=== PATIENT | male | born 1960 | race Caucasian/White ===

== ENCOUNTER → 2020-08-13 02:50 | Outpatient (CLI) | payer MEDICARE, BC, SELFPAY ==
[2020-08-13 19:43] LABS: SARS-CoV-2 RNA PCR Negative
== END ==
PROVIDERS: PCP Family Medicine; Visit Provider Internal Medicine Gastroenterology
DX: Z01.812 Encounter for preprocedural laboratory examination (principal); Z20.822 Contact with and (suspected) exposure to COVID-19
CPT/HCPCS: C9803; U0003; U0005

== ENCOUNTER 2020-08-16 00:22 | Day surgery (SDC) | payer MEDICARE, BC, SELFPAY ==
[2020-08-04 13:44] VITALS: BMI 21.2
[2020-08-16 08:18] VITALS: BP 146/68; PULSE 78; RESP 17; TEMP 36.4; O2SAT 97; BMI 35.9
[2020-08-16 08:24] LABS: Glucose Point of Care 173 (65-105)
[2020-08-16] MEDS: LACTATED RINGERS 1,000 ML 150 ML IV CONT (08:32)
--- NOTE | 2020-08-16 08:46 | PM.HPGS ---
History of Present Illness History of Present Illness Consent: Risks, benefits, and alternatives have been discussed and questions answered. Patient agrees to proceed with procedure. Chief complaint: neoplasm screening, GERD Narrative: Valentín Hurtado is a 60 year old male here for screening colonoscopy. he had a polyp removed about 9 years ago. He has been treated for many years for acid reflux but had never had an EGD to rule out Alba's mucosa. Review of Systems Review of Systems: All systems reviewed & are unremarkable except as noted in HPI and below PMFSH Past Medical History Medical History BMI 37.0-37.9, adult Essential hypertension Gastroesophageal reflux disease without esophagitis Mixed hyperlipidemia LEONCIO (obstructive sleep apnea) Other pulmonary embolism without acute cor pulmonale Parkinsons disease Type 2 diabetes mellitus without complications Unspecified asthma, uncomplicated Family History Family History Father Hypertension Family history of lung cancer, Onset Age: 57 Grandparent Hypertension Cerebrovascular accident Sibling Family history of lung cancer Mother Family history of chronic obstructive pulmonary disease Other Diabetes mellitus Family history of malignant neoplasm Family history of tuberculosis Social History Social History Smoking packs per day: 0.5 Smoking cigarettes per day: 10.0 Smoking status: Former smoker Tobacco type: cigarettes Smoking end date: 04/29/02 Alcohol intake: current Drinks per week: 2 Alcohol use details: 2 GLASSES OF WINE PER WEEK Substance use: never Substance use type: does not use Living arrangements: with family Spiritual care concerns: No Meds Home Medications and Allergies Home Medications Medication Instructions Recorded Confirmed Type carbidopa 25 mg-levodopa 100 mg 5 tablet PO DIRECTED tablet 10/05/19 08/16/20 History tablet clonazepam 0.5 mg tablet 0.5 mg PO .QHS tablet 10/05/19 08/16/20 History escitalopram oxalate 10 mg tablet 10 mg PO DAILY 02/18/20 08/16/20 History mirtazapine 45 mg tablet 45 mg PO HS 02/18/20 08/16/20 History trazodone 100 mg tablet 100 mg PO DAILY 02/18/20 08/16/20 History metformin 500 mg tablet,extended 2,000 mg PO QPM #360 tablet 06/10/20 08/16/20 Rx release 24 hr blood sugar diagnostic #200 ea 06/16/20 08/16/20 Rx lancets 33 gauge #100 each 06/16/20 08/16/20 Rx blood-glucose meter #1 ea 06/17/20 08/16/20 Rx amlodipine 5 mg tablet 10 mg PO DAILY tablet 07/22/20 08/16/20 History montelukast [Singulair] 10 mg PO DAILY 08/04/20 08/16/20 History ramipril 10 mg PO BID 08/04/20 08/16/20 History rosuvastatin 20 mg PO DAILY 08/04/20 08/16/20 History terbinafine HCl 250 mg PO DIRECTED 08/04/20 08/16/20 History lansoprazole 30 mg capsule,delayed 30 mg PO DAILY #90 cap 08/10/20 08/16/20 Rx release Allergies Allergy/AdvReac Type Severity Reaction Status Date / Time No Known Allergies Allergy Verified 08/04/20 13:32 Vital Signs Vital Signs - 24 hr 08/16/20 08:18 Temperature 36.4 C L Pulse Rate 78 Respiratory Rate 17 Blood Pressure 146/68 H Pulse Oximetry 97 Exam Const: General: alert Orientation/consciousness: patient oriented x3 Resp: Auscultation: clear to auscultation bilaterally Cardio: Rhythm: regular rhythm GI: GI Palp: Yes Soft to palpation and No Tenderness to palpation present (GI) Neuro: General: patient oriented x3 Assessment and Plan Assessment and plan (1) GERD (gastroesophageal reflux disease): Code(s): K21.9 - Gastro-esophageal reflux disease without esophagitis Status: Acute Assessment and Plan: EGD with possible biopsy or dilatation or cautery. (2) Personal history of colonic polyps: Code(s): Z86.010 - Personal history o
--- NOTE | 2020-08-16 08:54 | WPDANESEPPF ---
Anes - Initial Pre Proc Eval Procedure: Operation Date: 08/16/20 09:30 Proposed Procedures p Esophagogastroduodenoscopy & Screening Colonoscopy - Enmanuel Vasquez MD Date/Time: 08/16/20 08:54 Surgeon: Enmanuel Vasquez MD Pre Op Diagnosis: neoplasm screening, GERD Patient Data Age: 60 Gender: M Height: 5 ft 11 in Weight: 116.7 kg Last Vital Signs Temp 97.5 F L 08/16/20 08:18 Pulse 78 08/16/20 08:18 Resp 17 08/16/20 08:18 BP 146/68 H 08/16/20 08:18 Pulse Ox 97 08/16/20 08:18 Allergies Allergy/AdvReac Type Severity Reaction Status Date / Time No Known Allergies Allergy Verified 08/04/20 13:32 Home Medications Medication Instructions Recorded Confirmed Type carbidopa 25 mg-levodopa 100 mg 5 tablet PO DIRECTED tablet 10/05/19 08/16/20 History tablet clonazepam 0.5 mg tablet 0.5 mg PO .QHS tablet 10/05/19 08/16/20 History escitalopram oxalate 10 mg tablet 10 mg PO DAILY 02/18/20 08/16/20 History mirtazapine 45 mg tablet 45 mg PO HS 02/18/20 08/16/20 History trazodone 100 mg tablet 100 mg PO DAILY 02/18/20 08/16/20 History metformin 500 mg tablet,extended 2,000 mg PO QPM #360 tablet 06/10/20 08/16/20 Rx release 24 hr blood sugar diagnostic #200 ea 06/16/20 08/16/20 Rx lancets 33 gauge #100 each 06/16/20 08/16/20 Rx blood-glucose meter #1 ea 06/17/20 08/16/20 Rx amlodipine 5 mg tablet 10 mg PO DAILY tablet 07/22/20 08/16/20 History montelukast [Singulair] 10 mg PO DAILY 08/04/20 08/16/20 History ramipril 10 mg PO BID 08/04/20 08/16/20 History rosuvastatin 20 mg PO DAILY 08/04/20 08/16/20 History terbinafine HCl 250 mg PO DIRECTED 08/04/20 08/16/20 History lansoprazole 30 mg capsule,delayed 30 mg PO DAILY #90 cap 08/10/20 08/16/20 Rx release Laboratory Tests 08/16/20 08:22 POC Capillary Glucose 173 mg/dl H mg/dl (65-105) Patient hx anesthesia problems: none Family hx anesthesia problems: none PMFSH Past Medical History Medical History BMI 37.0-37.9, adult Essential hypertension Gastroesophageal reflux disease without esophagitis Mixed hyperlipidemia LEONCIO (obstructive sleep apnea) Other pulmonary embolism without acute cor pulmonale Parkinsons disease Type 2 diabetes mellitus without complications Unspecified asthma, uncomplicated Family History Family History Father Hypertension Family history of lung cancer, Onset Age: 57 Grandparent Hypertension Cerebrovascular accident Sibling Family history of lung cancer Mother Family history of chronic obstructive pulmonary disease Other Diabetes mellitus Family history of malignant neoplasm Family history of tuberculosis Social History Social History Smoking packs per day: 0.5 Smoking cigarettes per day: 10.0 Smoking status: Former smoker Tobacco type: cigarettes Smoking end date: 04/29/02 Alcohol intake: current Drinks per week: 2 Alcohol use details: 2 GLASSES OF WINE PER WEEK Substance use: never Substance use type: does not use Living arrangements: with family Spiritual care concerns: No Anes - Eval Final PreProcedure Day of Procedure 08/16/20 08:54 Patient weight: obese Heart: regular rate and rhythm Lungs: clear to auscultation Airway: Mallampati scale class II Neurological: alert and oriented Last oral intake: >/= 8 hours ASA classification: III Emergent: no Anesthetic plan: proceed Anesthesia type and monitoring: general GIVS and standard monitoring Informed Consent: The patient's anesthetic plan and its attendant risks and benefits were discussed with the patient/family/POA. Questions were solicited and answers provided to the satisfaction of the patient/family/POA.
[2020-08-16 10:16] VITALS: BP 108/67; PULSE 59; RESP 20; O2SAT 95
[2020-08-16 10:26] VITALS: BP 116/68; PULSE 55; RESP 18; O2SAT 94
[2020-08-16 10:36] VITALS: BP 124/77; PULSE 56; RESP 16; O2SAT 96
== END 2020-08-16 10:52 | disposition home or self-care (01) ==
PROVIDERS: PCP Family Medicine; Visit Provider Internal Medicine Gastroenterology
PROC: 0DJ08ZZ Inspection of Upper Intestinal Tract, Via Natural or Artificial Opening Endoscopic (ICD-10-PCS; CPT 43235; principal; 2020-08-16 09:30)
DX: Z12.11 Encounter for screening for malignant neoplasm of colon (principal); K57.30 Diverticulosis of large intestine without perforation or abscess without bleeding; D12.0 Benign neoplasm of cecum; K22.70 Barrett's esophagus without dysplasia; K31.7 Polyp of stomach and duodenum; K21.00 Gastro-esophageal reflux disease with esophagitis, without bleeding; K22.8 Other specified diseases of esophagus; I10 Essential (primary) hypertension; E78.2 Mixed hyperlipidemia; G47.33 Obstructive sleep apnea (adult) (pediatric); G20 Parkinson's disease; E11.9 Type 2 diabetes mellitus without complications; J45.909 Unspecified asthma, uncomplicated; Z86.711 Personal history of pulmonary embolism; Z87.891 Personal history of nicotine dependence; E66.9 Obesity, unspecified; Z68.35 Body mass index [BMI] 35.0-35.9, adult; Z79.84 Long term (current) use of oral hypoglycemic drugs
CPT/HCPCS: 45385; 45381; 45380; 43239; 82948; 88305; J2704; J7120

== ENCOUNTER → 2021-04-15 00:23 | Outpatient (CLI) | payer MEDICARE, BC, SELFPAY ==
[2021-04-17 20:09] LABS: SARS-CoV-2 RNA PCR Negative
== END ==
PROVIDERS: PCP Family Medicine; Visit Provider Nurse Practitioner Family
DX: R09.89 Other specified symptoms and signs involving the circulatory and respiratory systems (principal); Z20.822 Contact with and (suspected) exposure to COVID-19
CPT/HCPCS: C9803; U0003; U0005

== ENCOUNTER → 2021-07-06 14:11 | Outpatient (CLI) | payer MEDICARE, BC, SELFPAY ==
--- NOTE | ~2021-07-06 | MR_ITS ---
EXAMINATION: MR ankle LT wo con DATE: 07/06/2021 15:15 INDICATION: Left Achilles tendon injury TECHNIQUE: Magnetic resonance imaging (MRI) of the left ankle was performed without intravenous contr ast. Sequences included sagittal, coronal, and axial proton-density weighted fast spin echo without a nd with fat saturation. COMPARISON: None. FINDINGS: Medial ankle ligaments: The superficial deltoid ligament is normal. There is thickening of the normally more thin and well-de fined striated fibers of the deep deltoid ligament consistent with scarring related to chronic sprain . There is also scarring with thickening of the superomedial component of the spring ligament complex . The medial plantar oblique and infra plantar lateral components of the spring ligament complex are normal. Lateral ankle ligaments: The anterior and posterior inferior tibiofibular ligaments are normal. The anterior talofibular, calc aneofibular and posterior talofibular ligaments are normal. Tendons: Fusiform thickening and mild increased signal of the Achilles tendon consistent with moderate tendino sis without discrete tear. The peroneus longus and brevis tendons are normal. The tibialis anterior a nd extensor hallucis longus and extensor digitorum longus tendons are normal. The tibialis posterior, flexor digitorum longus and flexor hallucis longus tendons are normal. Plantar fascia: Moderate-sized plantar calcaneal spur at the insertion of the normal plantar aponeurosis. Bones/other: Bone alignment is normal. No fracture or pathologic marrow replacing process. Mild polyarticular oste oarthritis at the calcaneocuboid, naviculocuneiform and multiple tarsal metatarsal joints. Fluid: Physiologic amount of fluid in the joint space. There is a 2.2 x 1.2 x 1.2 cm ganglion cyst arising f rom the dorsolateral aspect of the talonavicular joint. There is mild subcutaneous edema about the di stal lower leg and ankle as well as at the Kager fat pad. IMPRESSION: 1. Moderate distal Achilles tendinosis without discrete tear. 2. Mild scarring consistent with chronic sprains of the deep deltoid and superomedial component of th e spring ligament complex. 3. 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 Reviewed, dictated and finalized at location A. 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 Moderate distal Achilles tendinosis without discrete tear. 2. Mild scarring consistent with chronic sprains of the deep deltoid and supero medial component of the spring ligament complex. 3. 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
== END ==
PROVIDERS: PCP Family Medicine
DX: S86.002A Unspecified injury of left Achilles tendon, initial encounter (principal); X58.XXXA Exposure to other specified factors, initial encounter; M19.072 Primary osteoarthritis, left ankle and foot
CPT/HCPCS: 73721

== ENCOUNTER 2021-08-11 12:45 | Emergency (ER) | payer MEDICARE, BC, SELFPAY ==
--- NOTE | ~2021-08-11 | XR_ITS ---
EXAMINATION: XR chest 2V DATE: 08/11/2021 13:34 INDICATION: Shortness of breath. Palpitations. TECHNIQUE: Frontal and lateral views of the chest were obtained. COMPARISON: Chest 2 views 10/25/2016, CT abdomen and pelvis 02/20/2018 FINDINGS: There is mild atelectasis in left lower lung zone. No pleural effusion or pneumothorax. The heart size is normal. IMPRESSION: 1. Mild atelectasis in left lower lung zone. Reviewed, dictated and finalized at location A.
--- NOTE | 2021-08-11 12:52 | ECG_ITS ---
Measurements Intervals Jarratt Rate: 75 P: 11 DC: 168 QRS: -14 QRSD: 107 T: 6 QT: 407 QTc: 456 Interpretive Statements SINUS RHYTHM WITH PREMATURE ATRIAL CONTRACTIONS NONSPECIFIC ST AND T-WAVE ABNORMALITY ABNORMAL ECG NO PREVIOUS ECG AVAILABLE FOR COMPARISON Electronically Signed On 08-11-2021 15:57:02 CDT by Dread Gomez M.D.
--- NOTE | 2021-08-11 13:07 | ED.CHESTPAIN ---
HPI - Chest Pain General Chief Complaint: Shortness of Breath/Dyspnea Stated Complaint: sob/palpatations Time Seen by Provider: 08/11/21 12:48 Source: patient and RN notes reviewed Mode of arrival: ambulatory Limitations: no limitations History of Present Illness HPI narrative: This is a 61 year old male with history of hypertension, hyperlipidemia, PE who presents for evaluation of shortness of breath. Patient states he has not felt well since yesterday. He has been having shortness of breath with exertion since yesterday. He is also reporting intermittent heart palpitations and midsternal chest pressure that is non radiating. His chest pressures has currently resolved and he states it is nonexertional. He denies fever, chills, cough, uRI symptoms. He does reports nausea and diarrhea since yesterday. He denies heart disease, but his states he had pulmonary emboli years ago. He is not currently on anticoagulation due to have only single occurrence. Related Data Home Medications Medication Instructions Recorded Confirmed carbidopa 25 mg-levodopa 100 mg 5 tablet PO DIRECTED tablet 10/05/19 05/31/21 tablet clonazepam 0.5 mg tablet 0.5 mg PO .QHS tablet 10/05/19 05/31/21 escitalopram oxalate 10 mg tablet 10 mg PO DAILY 02/18/20 05/31/21 mirtazapine 45 mg tablet 45 mg PO HS 02/18/20 05/31/21 trazodone 100 mg tablet 100 mg PO DAILY 02/18/20 05/31/21 furosemide 20 mg tablet 20 mg PO QAM 10/06/20 05/31/21 Allergies Allergy/AdvReac Type Severity Reaction Status Date / Time No Known Allergies Allergy Verified 05/10/21 12:37 Review of Systems Review of Systems: All systems reviewed & are unremarkable except as noted in HPI and below Constitutional: Constitutional: Denies body ache(s) and Denies chills ENT: Denies nasal congestion and Denies nasal discharge Cardiovascular: Cardiovascular: Reports chest pain, Denies diaphoresis, Reports irregular heart rhythm and Reports dyspnea Respiratory: Respiratory: Denies cough, Denies hemoptysis, Denies pain with cough and Reports dyspnea Gastrointestinal: Gastrointestinal: Denies abdominal pain, Denies hematochezia, Reports diarrhea and Reports nausea Genitourinary: Genitourinary: Denies hematuria and Denies dysuria Musculoskeletal: Musculoskeletal: Denies muscle cramps PMFSH Past Medical History Medical History BMI 34.0-34.9,adult Colonoscopy planned Essential hypertension Gastroesophageal reflux disease without esophagitis Mixed hyperlipidemia LEONCIO (obstructive sleep apnea) Other pulmonary embolism without acute cor pulmonale Parkinsons disease Type 2 diabetes mellitus without complications Unspecified asthma, uncomplicated Family History Family History Father Hypertension Family history of lung cancer, Onset Age: 57 Alcoholism Grandparent Hypertension Cerebrovascular accident Sibling Family history of lung cancer Mother Family history of chronic obstructive pulmonary disease Liver failure Sibling Alcoholism Other Diabetes mellitus Family history of malignant neoplasm Family history of tuberculosis Social History Social History Smoking packs per day: 0.5 Smoking cigarettes per day: 10.0 Tobacco type: cigarettes Second hand tobacco smoke exposure: Yes Smoking end date: 04/29/02 Alcohol intake: current Drinks per week: 2 Alcohol use details: 2 GLASSES OF WINE PER WEEK Substance use: never Substance use type: does not use 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 HEAD: Normocephalic, atraumatic NECK:
[2021-08-11 13:09] VITALS: BP 146/81; PULSE 68; RESP 20; TEMP 36.6; O2SAT 99
[2021-08-11 13:30] VITALS: O2SAT 98
[2021-08-11 13:40] LABS: Basophils Percent Auto 0.4 % (0.2-1.2); Eosinophils Absolute Auto 0.1 K/mm3 (0-0.3); Eosinophils Percent Auto 1.3 % (0-4.4); Hematocrit 43.3 % (42.0-52.0); Hemoglobin 14.4 g/dL (14.0-18.0); Immature Granulocyte Absolute 0.02 K/mm3 (0.00-0.031); Immature Granulocyte Percent A 0.4 % (0-0.5); Lymphocytes Percent Auto 21.1 % (18.3-44.2); Mean Corpuscular HGB Conc 33.3 g/dl (32-36); Mean Corpuscular Hemoglobin 29.6 pg (26-34); Mean Corpuscular Volume 89.1 fl (80-100); Monocytes Absolute Auto 0.4 K/mm3 (0.1-0.6); Monocytes Percent Auto 9.3 % (2.6-8.5); Neutrophils Absolute Auto 3.2 K/mm3 (1.3-6.7); Neutrophils Percent Auto 67.5 % (45.5-73.1); Platelet Count Result 147 k/mm3 (150-375); Red Blood Count 4.86 M/mm3 (4.6-6.20); Red Cell Distribution Width 13.1 % (11.5-14.5); White Blood Count 4.8 K/mm3 (4.5-10.0)
[2021-08-11 13:47] LABS: Add Urine Microscopic? YES; Appearance Urine Clear (Clear); Bilirubin Urine Negative (Negative); Blood Urine Negative (Negative); Color Urine Yellow (Yellow); Glucose Urine UA Negative (Negative); Ketones Urine Trace mg/dL (Negative); Leukocyte Esterase Ur Negative LEU/UL (Negative); Nitrate Urine Negative (Negative); Protein Urine Negative (Negative); Specific Grav Ur 1.015 (1.001-1.035); Urobilinogen Urine 0.2 mg/dL (<2.0)
[2021-08-11 13:51] LABS: Alanine Aminotransferase 10 U/L (4-50); Albumin Level 4.4 g/dL (3.5-5.1); Alkaline Phosphatase 128 U/L (38-126); Anion Gap 10 mmol/L (8-16); Aspartate Amino Transferase 24 U/L (17-59); Bilirubin,Total 0.7 mg/dL (0.2-1.3); Blood Urea Nitrogen 15 mg/dL (9-20); Calcium 8.9 mg/dL (8.4-10.2); Carbon Dioxide 26 mmol/L (22-30); Chloride 97 mmol/L (98-107); Estimated CRCL calculation 125 ml/min; Estimated Glomerular Filt Rate > 60; Glucose 182 mg/dL (65-110); Lipase 101 U/L (23-300); Magnesium 1.8 mg/dL (1.6-2.3); Potassium 4.4 mmol/L (3.4-5.0); Sodium 133 mmol/L (137-145)
[2021-08-11 13:52] LABS: Partial Thromboplastin Time 28.2 SECONDS (22.3-36.8); Prothrombin Time 13.2 Seconds (11.1-14.7)
[2021-08-11 13:55] LABS: D Dimer 0.47 ug/mL (<0.48)
[2021-08-11 13:58] LABS: Mucus Urine Rare /lpf; RBC Urine 0-2 /hpf (0-2); WBC Urine 0-3 /hpf
[2021-08-11 14:02] LABS: Troponin I < 0.012 ng/mL (0.000-0.034)
[2021-08-11 14:16] LABS: SARS-CoV-2 RNA PCR Negative
[2021-08-11 15:44] VITALS: BP 127/78; PULSE 66; RESP 18; O2SAT 95
[2021-08-11 16:47] LABS: Troponin I < 0.012 ng/mL (0.000-0.034)
[2021-08-11 16:58] VITALS: PULSE 70; RESP 15; O2SAT 99
== END 2021-08-11 17:09 | disposition home or self-care (01) ==
PROVIDERS: Emergency Provider General Practice; PCP Family Medicine
DX: R06.00 Dyspnea, unspecified (principal); R53.83 Other fatigue; I10 Essential (primary) hypertension; G20 Parkinson's disease; E11.9 Type 2 diabetes mellitus without complications; E78.2 Mixed hyperlipidemia; J45.909 Unspecified asthma, uncomplicated; K21.9 Gastro-esophageal reflux disease without esophagitis; G47.33 Obstructive sleep apnea (adult) (pediatric); Z86.711 Personal history of pulmonary embolism; Z87.891 Personal history of nicotine dependence; Z79.84 Long term (current) use of oral hypoglycemic drugs; R94.31 Abnormal electrocardiogram [ECG] [EKG]
CPT/HCPCS: 36415; 71046; 80053; 81001; 83690; 83735; 84484; 85025; 85380; 85610; 85730; 93005; 99284; C9803; U0003; U0005

== ENCOUNTER → 2021-09-22 12:02 | Outpatient (CLI) | payer MEDICARE, BC, SELFPAY ==
--- NOTE | ~2021-09-22 | XR_ITS ---
EXAMINATION: XR knee RT 2V DATE: 09/22/2021 12:23 INDICATION: Right knee pain TECHNIQUE: Standing AP and lateral views of the right knee were obtained. COMPARISON: None. FINDINGS: Bone alignment is normal. No fracture. Joint spaces appear normal with tiny marginal osteophytes in a ll 3 compartments consistent with minimal osteoarthritis. Mild chondrocalcinosis at the posterior praveena nt space likely at the posterior horns of the menisci. Small right knee joint effusion. IMPRESSION: 1. Chondrocalcinosis and minimal tricompartmental osteoarthritis at the right knee. Reviewed, dictated and finalized at location B. IMPRESSION: 1. Chondrocalcinosis and minimal tricompartmental osteoarthritis at the right k margarita.
== END ==
PROVIDERS: PCP Family Medicine; Visit Provider Nurse Practitioner Family
DX: M25.561 Pain in right knee (principal); M11.261 Other chondrocalcinosis, right knee; M17.11 Unilateral primary osteoarthritis, right knee
CPT/HCPCS: 73560

== ENCOUNTER → 2021-10-05 15:29 | Outpatient (CLI) | payer MEDICARE, BC, SELFPAY ==
--- NOTE | ~2021-10-05 | MR_ITS ---
EXAMINATION: MR knee RT wo con DATE: 10/05/2021 16:10 INDICATION: Right knee pain. TECHNIQUE: Magnetic resonance imaging (MRI) of the right knee was performed without intravenous contr ast. Sequences included axial PD-weighted FS FSE, coronal PD-weighted FSE and PD-weighted FS FSE, sag ittal PD-weighted FSE, and sagittal T2-weighted FS FSE. COMPARISON: Right knee radiographs 09/22/2021 FINDINGS: Medial compartment: Increased signal in medial meniscus does not definitely extend to an articular surface to indicate a tear. There is shallow partial-thickness cartilage loss of tibial condyle and femoral condyle. Osteop hytes are noted. Lateral compartment: There is a complex tear involving body and posterior horn of lateral meniscus. There is shallow parti al-thickness cartilage loss of tibial condyle. There is full-thickness cartilage loss of femoral cond yle involving the central articular surface in an area measuring 12 x 7 mm. Osteophytes are noted. Patellofemoral compartment: There is full-thickness cartilage loss of patellar medial facet and deep partial thickness cartilage loss of patellar median ridge and lateral facet with moderate subchondral edema-like marrow signal in tensity. There is deep partial thickness cartilage loss of trochlea. Osteophytes are noted. Ligaments and tendons: The anterior and posterior cruciate ligaments are normal. There are changes of prior sprains of media l collateral ligament and fibular collateral ligament characterized by thickening and increased signa l intensity approximately. There is mild patellar tendinopathy. Fluid: There is a small knee joint effusion. There is a large Viramontes's cyst. IMPRESSION: 1. Severe chondrosis of lateral and patellofemoral compartments and mild chondrosis of medial compart ment. 2. Tear of lateral meniscus. 3. Small knee joint effusion. 4. Large Viramontes's cyst. Reviewed, dictated and finalized at location A. IMPRESSION: 1. Severe chondrosis of lateral and patellofemoral compartments and mild chondr osis of medial compartment. 2. Tear of lateral meniscus. 3. Small knee joint effusion. 4. Large Viramontes's cyst.
== END ==
PROVIDERS: PCP Family Medicine; Visit Provider Nurse Practitioner Family
DX: M71.21 Synovial cyst of popliteal space [Baker], right knee (principal); S83.281A Other tear of lateral meniscus, current injury, right knee, initial encounter; X58.XXXA Exposure to other specified factors, initial encounter
CPT/HCPCS: 73721

== ENCOUNTER → 2021-10-11 14:59 | Outpatient (CLI) | payer MEDICARE, BC, SELFPAY ==
--- NOTE | ~2021-10-11 | XR_ITS ---
EXAM: XR lumbar spine 2-3V DATE: 10/11/2021 16:12 HISTORY: M54.50 - Low back pain, unspecified . COMPARISON: 07/19/2014. FINDINGS: Interbody fusion at L4-5 and L5-S1, in good position. 5 nonrib-bearing lumbar-type vertebr al bodies. Pedicles intact. Normal vertebral body alignment. Vertebral body heights preserved. Multil evel marginal osteophytosis. Mild multilevel facet sclerosis. No fracture or dislocation. IMPRESSION: L4-5 and L5-S1 interbody fusion. Mild multilevel degenerative disc disease and facet arth ropathy. Reviewed, dictated and finalized at location K. IMPRESSION: L4-5 and L5-S1 interbody fusion. Mild multilevel degenerative disc disease and facet arthropathy.
== END ==
PROVIDERS: PCP Family Medicine; Visit Provider Nurse Practitioner Family
DX: M54.50 Low back pain, unspecified (principal); Z98.890 Other specified postprocedural states; Z98.1 Arthrodesis status; M51.37 Other intervertebral disc degeneration, lumbosacral region
CPT/HCPCS: 72100

== ENCOUNTER 2024-02-08 09:53 | Emergency (ER) | payer MEDICARE, BC, SELFPAY ==
--- NOTE | ~2024-02-08 | XR_ITS ---
EXAMINATION: XR chest 1V portable DATE: 02/08/2024 11:18 INDICATION: Hypertension. My lungs are full of rocks. TECHNIQUE: A single frontal view of the chest was obtained. COMPARISON: Chest 2 views 08/11/2021, CT abdomen and pelvis 02/20/2018 FINDINGS: There are mild airspace opacities in the lower lung zones. No pleural effusion or pneumotho rax. The heart size is normal. IMPRESSION: 1. Mild airspace opacities in the lower lung zones, consistent with atelectasis versus pneumonia. Reviewed, dictated and finalized at location A.
[2024-02-08 10:11] VITALS: BP 151/76; PULSE 84; RESP 20; TEMP 36.5; O2SAT 98
[2024-02-08 10:55] LABS: Influenza A QL RT-PCR Positive (Negative); Influenza B QL RT-PCR Negative (Negative); RSV RNA, RT-PCR Negative (Negative); SARS-CoV-2 RNA PCR Negative (Negative)
[2024-02-08 11:58] VITALS: PULSE 71; RESP 16; O2SAT 97
[2024-02-08] MEDS: ALBUTEROL SULFATE NEB 2.5 MG/3 ML INH 15 MG INHALATION (11:58)
[2024-02-08] MEDS: IPRATROPIUM BR 0.02% INH SOLN 0.5 MG/2.5 ML VIAL 1 MG INHALATION (11:58)
--- NOTE | 2024-02-08 12:16 | ED.URI ---
HPI - URI/Sore Throat General Chief Complaint: Upper Respiratory Infection Stated Complaint: my lungs are full of rocks , sob Time Seen by Provider: 02/08/24 10:58 History of Present Illness HPI Narrative: 63M h/o asthma p/w 5 d of viral syndrome; just started steroids yesterday, using inhalers at home w/o much improvement. Related Data Home Medications Medication Instructions Recorded Confirmed carbidopa 25 mg-levodopa 100 mg 5 tablet PO DIRECTED 10/05/19 02/06/24 tablet (Sinemet) clonazepam 0.5 mg tablet 0.5 mg PO .QHS 10/05/19 02/06/24 escitalopram oxalate 10 mg tablet 10 mg PO DAILY 02/18/20 02/06/24 mirtazapine 45 mg tablet 45 mg PO HS 02/18/20 02/06/24 trazodone 100 mg tablet 100 mg PO DAILY 02/18/20 02/06/24 Allergies Allergy/AdvReac Type Severity Reaction Status Date / Time No Known Allergies Allergy Verified 02/06/24 09:10 Review of Systems Review of Systems: All systems reviewed & are unremarkable except as noted in HPI and below PMFSH Past Medical History Medical History Adult BMI 33.0-33.9 kg/sq m Anxiety Arthritis Arthritis of right knee Asthma BMI 32.0-32.9,adult BMI 34.0-34.9,adult BMI greater than 30 Colonoscopy planned Depression Diabetes type 2 Essential hypertension Gastroesophageal reflux disease without esophagitis HLD (hyperlipidemia) HTN (hypertension) Mixed hyperlipidemia LEONCIO (obstructive sleep apnea) Other pulmonary embolism without acute cor pulmonale Parkinsons disease Pulmonary embolism Right knee DJD Synovial cyst of right popliteal space Tear of lateral meniscus of right knee Type 2 diabetes mellitus without complications Unspecified asthma, uncomplicated Surgical History Surgical History H/O shoulder surgery Right RTC (between [id number] Adalberto Bhakta) Left RTC (between [id number] Adalberto Bhakta) History of back surgery 1989 spinal fusion S1/L5 and L4/L5 by Dr. Candido Guerrero. History of hernia surgery Umbilical hernia x3 [id number] Nguyen. Umbilical hernia [address] Kaveh Washington. History of knee surgery Left knee arthroscopy 1973 Dr. Reta Yancey Left knee arthroscopy x2 (between [id number]) by Dr. Adalberto Bhakta Right knee arthroscopy x2 (between [id number] Adalberto Bhakta Left knee partial replacement [address] Adalberto Bhakta Left TKA [address] Hema Winter Kidney stones [address] Norris. Family History Family History Father Hypertension Family history of lung cancer, Onset Age: 57 Alcoholism Grandparent Hypertension Cerebrovascular accident Sibling Family history of lung cancer Mother Family history of chronic obstructive pulmonary disease Liver failure Sibling Alcoholism Other Arthritis Diabetes mellitus Family history of malignant neoplasm Family history of tuberculosis Social History Social History Smoking packs per day: 0.5 Smoking cigarettes per day: 10.0 Smoking status: Former smoker Tobacco type: cigarettes Second hand tobacco smoke exposure: Yes Smoking end date: 04/29/00 Alcohol intake: current Drinks per week: 2 Alcohol use details: 2 GLASSES OF WINE PER WEEK Substance use: never Substance use type: does not use Living arrangements: with family Occupation/Education: retired 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 EYES: EOMI, conjunctiva normal ENT: Hearing grossly intact LUNGS: Wheezing all lung br[place]ford HEART: [Regular rate and rhythm] ABD: [Soft], [nontender to palpation] EXT: Normal range of motion SKIN: [No rashes or lesions.] NEURO: [Alert and oriented x 3. No gross focal sensory or strength deficits.] PSYCH: Normal affect Course Vital Signs Vital signs: Vital Signs Temperature 97.7 F 02/08/24 10:11 Pulse Rate 84 02/08/24 10:11 Respiratory Rate 20 02/08/24 10:11 Blood Pressure 151/76 H 02/08/24 10:11 Pulse Oximetry 98 02/08/24 10:11 Oxygen Delivery Room Air 02/08/24 10:11 Temperature 97.7 F 02/08/24 10:11 Pulse Rate 81 02/08/24 13:38 Respiratory Rate 20 02/08/24 13:38 Blood Pressure 119/82 02/08/24 13:38 Pulse Oximetry 98 02/08/24 13:38 Oxygen Delivery Room Air 02/08/24 11:58 Fraction of Inspired Oxygen 21 02/08/24 11:58 MDM - URI/Sore Throat MDM Narrative Medical decision making narrative: ED COURSE AND MEDICAL DECISION MAKIN-year-old male with acute dyspnea and wheezing likely due to acute asthma exacerbation based on history and exam, likely after viral infection. Patient is hemodynamically stable. Nebulizer treatments are started he is already on steroids. Patient monitored in the ED for a couple of hours and on reevaluation is feeling significantly better. No respiratory distress or accessory muscle use. Good air movement bilateral lungs. he is given strict return precautions, he did test positive for flu however out of window for Tamiflu, given his risk factors I will put him on antibiotics any I do feel he is stable for discharge at this time. Patient and at bedside agreeable to plan Lab Data Labs: Lab Results 02/08/24 Range/Units 10:12 Influenza A (RT-PCR) Positive A (Negative) Influenza B (RT-PCR) Negative (Negative) RSV (RT-PCR) Negative (Negative) SARS-CoV-2 RNA (RT-PCR) Negative (Negative) Discharge Plan Discharge Clinical Impression: Acute bronchitis Patient Disposition: Home, Self-Care Condition: Stable Instructions: Antibiotic Form, Influenza (ED), Acute Bronchitis (ED) Additional Instructions: please continue your inhalers and steroids at home, start the antibiotics, make sure you are keeping hydrated, come back to the emergency room if your symptoms worsen or do not improve. Prescriptions: New azithromycin 250 mg tablet 250 mg PO DAILY 4 Days Qty: 4 0RF Rx Instructions: start on day 2 of therapy No Action clonazepam 0.5 mg tablet 0.5 mg PO .QHS carbidopa-levodopa [Sinemet] 25-100 mg tablet 5 tablet PO DIRECTED Rx Instructions: 5 AT 5AM, 4 AT 9 AM, 4 AT 1 PM, 4 AT 5 PM, 5 AT 9 PM prednisone 10 mg tablet 30 mg PO DAILY 5 Days Qty: 15 0RF Rx Instructions: Take all 3 tablets first thing in the morning Airsupra 90-80 mcg/actuation HFA aerosol inhaler 2 inh inhalation 6XD PRN (Reason: shortness of breath) Qty: 5.9 5RF mirtazapine 45 mg tablet 45 mg PO HS escitalopram oxalate 10 mg tablet 10 mg PO DAILY trazodone 100 mg tablet 100 mg PO DAILY (DME) OneTouch Ultra Blue Test Strip Strip See Rx Instructions .ROUTE .MEDSUPPLY Qty: 200 3RF Rx Instructions: Needs to check glucose bid for diabetes (DME) lancets [BD Ultra Fine Lancets] 33 gauge misc See Rx Instructions .ROUTE .MEDSUPPLY Qty: 100 3RF Rx Instructions: check glucose bid for diabetes (DME) blood-glucose meter [OneTouch Verio Flex Start] Kit See Rx Instructions .ROUTE .MEDSUPPLY Qty: 1 0RF Rx Instructions: As directed amlodipine 5 mg tablet See Rx Instructions .ROUTE .COMPLEX Qty: 180 1RF Dose Instruction: TAKE 2 TABLETS (10 MG) DAILY Rx Instructions: TAKE 2 TABLETS (10 MG) DAILY albuterol sulfate 2.5 mg /3 mL (0.083 %) solution for nebulization 2.5 mg inhalation Q4-6H PRN (Reason: shortness of breath or wheezing) Qty: 180 3RF rosuvastatin 20 mg tablet See Rx Instructions .ROUTE .COMPLEX Qty: 90 3RF Dose Instruction: TAKE 1 TABLET DAILY Rx Instructions: TAKE 1 TABLET DAILY albuterol sulfate 90 mcg/actuation HFA aerosol inhaler 2 inh inhalation Q4-6H PRN (Reason: shortness of breath or wheezing) Qty: 25.5 3RF triamcinolone acetonide 0.1 % cream 1 applic topical BID Qty: 30 0RF diclofenac sodium 75 mg tablet,delayed release (DR/EC) See Rx Instructions .ROUTE .COMPLEX Qty: 180 1RF Dose Instruction: TAKE 1 TABLET BY MOUTH TWICE DAILY NEEDED FOR PAIN Rx Instructions: TAKE 1 TABLET BY MOUTH TWICE DAILY NEEDED FOR PAIN ramipril 10 mg capsule See Rx Instructions .ROUTE .COMPLEX Qty: 180 1RF Dose Instruction: TAKE 2 CAPSULES BY MOUTH EVERY DAY Rx Instructions: TAKE 2 CAPSULES BY MOUTH EVERY DAY lansoprazole 30 mg capsule,delayed release(DR/EC) See Rx Instructions .ROUTE .COMPLEX Qty: 90 3RF Dose Instruction: TAKE 1 CAPSULE DAILY Rx Instructions: TAKE 1 CAPSULE DAILY montelukast 10 mg tablet See Rx Instructions .ROUTE .COMPLEX Qty: 90 2RF Dose Instruction: TAKE 1 TABLET BY MOUTH EVERY DAY Rx Instructions: TAKE 1 TABLET BY MOUTH EVERY DAY metformin 500 mg tablet extended release 24 hr See Rx Instructions .ROUTE .COMPLEX Qty: 360 3RF Dose Instruction: TAKE 4 TABLETS (2000 MG) EVERY EVENING Rx Instructions: TAKE 4 TABLETS (2000 MG) EVERY EVENING Linzess 72 mcg capsule 72 mcg PO DAILY Qty: 90 0RF Ozempic 1 mg/dose (4 mg/3 mL) pen injector 1 mg subcut WEEKLY Qty: 3 0RF Rx Instructions: managed by endo Follow-up/Referrals: Babatunde Rees MD [Primary Care Provider] -
[2024-02-08 12:56] VITALS: BP 122/66; PULSE 81; RESP 20; O2SAT 100
[2024-02-08 13:14] VITALS: PULSE 94; RESP 24
[2024-02-08] MEDS: AZITHROMYCIN 250 MG TABLET 500 MG PO (13:35)
[2024-02-08 13:38] VITALS: BP 119/82; PULSE 81; RESP 20; O2SAT 98
== END 2024-02-08 13:39 | disposition home or self-care (01) ==
PROVIDERS: Emergency Medicine; Emergency Provider Emergency Medicine; PCP Family Medicine
DX: J20.9 Acute bronchitis, unspecified (principal); E11.9 Type 2 diabetes mellitus without complications; I10 Essential (primary) hypertension; E78.2 Mixed hyperlipidemia; Z87.891 Personal history of nicotine dependence; Z79.899 Other long term (current) drug therapy; Z79.891 Long term (current) use of opiate analgesic; Z20.822 Contact with and (suspected) exposure to COVID-19
CPT/HCPCS: 71045; 87637; 94640; 99283; A9270

== ENCOUNTER 2024-03-27 10:44 | Outpatient (CLI) | payer MEDICARE, BC, SELFPAY ==
--- NOTE | ~2024-03-27 | XR_ITS ---
XR chest 2V DATE: 03/27/2024 11:02 INDICATION: Cough TECHNIQUE: PA and lateral views COMPARISON: 02/08/2024 portable AP chest FINDINGS: Heart size is within normal limits. No hilar or mediastinal enlargement. No pulmonary infiltrate or consolidation, pleural effusion or pulmonary vascular congestion or pneumo thorax is detected. There is thoracolumbar dextroscoliosis and degenerative change IMPRESSION: No active cardiopulmonary disease Reviewed, dictated and finalized at location A. 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
== END 2024-03-27 10:45 | disposition home or self-care (01) ==
PROVIDERS: PCP Family Medicine; Visit Provider Physician Assistant
DX: R05.9 Cough, unspecified (principal); J45.909 Unspecified asthma, uncomplicated; J11.1 Influenza due to unidentified influenza virus with other respiratory manifestations
CPT/HCPCS: 71046

== ENCOUNTER 2024-08-06 11:56 | Outpatient (CLI) | payer MEDICARE, BC, SELFPAY ==
--- OUTSIDE RECORDS SUMMARY | 2024-08-06 12:34 | XMS_ITS | Referral Summary ---
Author Organization [facility] [address] [place] [address] Care Team Providers Care Bridge/Structure Inspection Team Leader Name Role Phone Babatunde Rees MD Primary Care Provider [phone] Encounters Date Type Department Care Team Description 07/15/2024 3:00 PM CDT Office Visit [facility] at [address] [address] Deloris Chairez, JESSICA Type 2 diabetes 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, with long-term current use of insulin (HCC) (Primary Dx); Type 2 diabetes mellitus with diabetic polyneuropathy, without long-term current use of insulin (HCC); Hyperlipidemia associated with type 2 diabetes mellitus (HCC); Essential hypertension; Class 1 obesity due to excess calories with serious comorbidity and body mass index (BMI) of 34.0 to 34.9 in adult; freestyle gurwinder continuous glucose monitoring device 07/08/2024 Orders Only [facility] Movement Disorders [address] [place] [id number] Osiel Ramos MD 07/08/2024 Telephone [facility] at [address] [place] [address] Deloris Chairez, JESSICA from Last 3 Months Allergies No known active allergies Medications ONETOUCH ULTRA BLUE TEST STRIP strip 8 Active ONETOUCH ULTRA2 kit 8 Active lansoprazole (PREVACID) 30 mg capsule TK 1 C PO at night for heartburn 0 8 Active ramipril (ALTACE) 10 mg capsule Take 1 capsule (10 mg total) by mouth 2 (two) times a day 180 capsule 1 9 Active metFORMIN XR (GLUCOPHAGE XR) 500 mg 24 hr tablet Take 4 tablets (2,000 mg total) by mouth nightly 0 Active montelukast (SINGULAIR) 10 mg tablet daily [address] (VOLTAREN) 75 mg EC tablet Take 1 tablet (75 mg total) by mouth 2 (two) times a day 3 Active magnesium citrate solution Take by mouth once a week Active carbidopa-levodo pa (SINEMET) 25-100 mg per tabletIndication s:Parkinson's disease (HCC) Take 4 tabs at 5am, 3 at 9am, 3 at 1pm, 3 at 5pm, 4 at 9pm. 1530 tablet 3 3 Active traZODone (DESYREL) 100 mg tabletIndication s:Parkinson's disease (HCC) TAKE 1 TABLET AT BEDTIME AND MAY TAKE 1 TABLET IN THE MIDDLE OF THE NIGHT IF INSOMNIA PERSISTS 180 tablet 3 4 Active semaglutide (OZEMPIC) 1 mg/dose (4 mg/3 mL) pen injector injectionIndicat ions:type 2 diabetes mellitus Inject 1 mg under the skin every 7 days E11.65 9 mL 4 4 Active furosemide (LASIX) 20 mg tablet Take 1 tablet daily as needed 30 tablet 4 Active escitalopram (LEXAPRO) 10 mg tabletIndication s:Parkinson's disease (HCC) Take 1 tablet (10 mg total) by mouth daily 90 tablet 3 4 025 Active insulin degludec (TRESIBA) 100 unit/mL (3 mL) pen for injectionIndicat ions:type 2 diabetes mellitus Inject 36 Units under the skin daily E11.65 30 mL 4 5 Active amLODIPine (NORVASC) 5 mg tablet TAKE 1 TABLET BY MOUTH DAILY. 90 tablet 1 5 Active clonazePAM (KlonoPIN) 0.5 mg tabletIndication s:for anxiety Take 1 tab by mouth nightly and can take an additional 1/2 tab during the day prn 135 tablet 1 5 Active mirtazapine (REMERON) 45 mg tablet TAKE 1 TABLE BY MOUTH NIGHTLY 90 tablet 3 5 Active entacapone (COMTAN) 200 mg tabletIndication s:Idiopathic Parkinsonism Take 1 tablet (200 mg total) by mouth 4 (four) times a day 5am,9 am 1pm 5pm 360 tablet 3 5 026 Active rosuvastatin (CRESTOR) 40 mg tablet Take 1 tablet (40 mg total) by mouth daily E11.65 90 tablet 3 5 Active triamcinolone (KENALOG) 0.1 % cream Apply topically 2 (two) times a day 4 025 Discontin ued(Thera py completed ) rosuvastatin (CRESTOR) 40 mg tablet Take 1 tablet (40 mg total) by mouth daily E11.65 90 tablet 3 4 025 Discontin ued(Reord er) Active Problems Problem Noted Date Diagnosed Date freestyle gurwinder continuous glucose monitoring de vice 07/15/2024 Assessment & Plan (07/15/2024 4:08 PM CDT): Continuous glucose monitor (cgm) applied from 07/02/2024 to 07/15/2024 This device was placed for monitor and treatment of blood sugar. Interpretation of data- average glucose 179. In target range 56%. 44% hyperglycemia. 0 hypoglycemia. Glucose variability 32%. Patient has been on steroids which has altered blood glucose levels Pain in joint involving left ankle and foot 03/29 Assessment & Plan (04/14/2024 12:36 PM AUTOMATIC MOUNTER): Reports pain to the left foot and ankle. Ambulatory referral to Dr. gallegos Type 2 diabetes mellitus wit h hyperglycemia, with long-term current use of insulin 04/13/2024 Assessment & Plan (04/13/2024 5:27 PM AUTOMATIC MOUNTER): This is a chronic condition which is extremely elevated, not at goal. This occurred after having influenza A. Questionable insulin deficiency- labs obtained . Goal is less than 7%. Personally reviewed most recent A1c - Lab Results Component Value Date HGBA1C 11.2 04/13/2024 Personally reviewed POC blood sugar- elevated, not at goal of 80-180 Lab Results Component Value Date POCGLU 386 04/13/2024 Medication- continue ozempic 1 mg weekly, continue metformin 1000mg twice daily. Start tresiba 25 units daily. Monitor blood sugar continuously with Kerecisyle Gurwinder 3 cgm. Encouraged annual eye exam. last dilated eye exam was [facility] in [place] Monofilament foot exam completed. Protective senses -intact Requesting referral to Podiatry. Ambulatory referral to Dr. Gallegos sent eGFR- greater than 90 Kidney function- at goal Urine microalbumin/creatinine ratio - at goal. Goal is <30 Continue amlodipine, Lasix, ramipril Constipation 11/18/2023 Assessment & Plan (11/18/2023 2:02 PM CDT): Reports this constipation problem has been ongoing. He is reports having issues for the last 18 years. Recently has constipation has worsened. We discussed Linzess. We discussed having a GI evaluation for his constipation since he has a history of Parkinson's. He will contact his PCP in his GI doctor who does his colonoscopies for recommendations on his next steps. For now, we will hold Ozempic as it may be complicating his constipation. He drank a full bottle of Mag citrate with very little results. We discussed that we may return to using Ozempic once his constipation issues have improved. Currently his A1c is 6.4 in his diabetes control may be continued with metformin Hyperlipidemia associated with type 2 diabetes inga loza 07/31/2023 Assessment & Plan (04/13/2024 5:28 PM AUTOMATIC MOUNTER): This is a chronic condition which is elevated, not at goal . Goal is LDL less than 70 Continue rosuvastatin Encouraged to eat healthy, include fresh fruits and vegetables daily and avoid eating fried foods more than once per week. Assessment & Plan (11/18/2023 1:57 PM CDT): This is a chronic condition which is not at goal . Goal is LDL less than 70 Continue rosuvastatin Encouraged to eat healthy, include fresh fruits and vegetables daily and avoid eating fried foods more than once per week. Encouraged to take medications as prescribed. Assessment & Plan (07/31/2023 2:25 PM CDT): This is a chronic condition which is at goal of LDL less than 70 Continue rosuvastatin Encouraged to eat healthy, include fresh fruits and vegetables daily and avoid eating fried foods more than once per week. Encouraged to take medications as prescribed. Encounter for colonoscopy du e to history of adenomatous colonic polyps 01/28/2023 Presence of left artificial knee joint Primary osteoarthritis of right knee 02/20/2022 Encounter for colonoscopy following colon polyp removal 11/22/2020 Overview (11/22/2020): Added automatically from request for surgery [id number] Palpitations 01/07/2020 Essential hypertension 01/07/2020 Assessment & Plan (04/13/2024 5:29 PM AUTOMATIC MOUNTER): This is a chronic condition which is at goal. Goal is less than 140/90 Continue amlodipine, Lasix, ramipril Encouraged to monitor weight and B/P at home. Assessment & Plan (11/18/2023 1:58 PM CDT): This is a chronic condition which is at goal. Goal is less than 140/90 Personally reviewed labs. Continue rosuvastatin Encouraged to monitor weight and B/P at home. Encouraged to void caffeine and excessive alcohol consumption as this will elevate B/P Encouraged to take medications as prescribed. Assessment & Plan (07/31/2023 2:25 PM CDT): This is a chronic condition which is at goal of less than 140/90 Personally reviewed labs. Continue ramipril, amlodipine Encouraged to monitor weight and B/P at home Encouraged to take medications as prescribed. Degenerative tear of posteri or horn of medial meniscus of right knee 09/08/2018 Other meniscus derangements, other lateral meniscus, right knee 09/08/2018 Tear of lateral meniscus of right knee, subsequent encounter 09/08/2018 Unspecified injury of left w rist, hand and finger(s), initial encounter 09/08/2018 Insomnia due to medical condition 09/08/2018 Recurrent incisional hernia 05/16/2018 Overview (05/16/2018): Added automatically from request for surgery [id number] Incisional hernia 04/10/2018 Dyskinesia due to Parkinson's disease 08/19/2017 Pain in right knee 05/15/2016 Pain in left wrist 03/28/2016 Chronic pulmonary embolism 05/24/2015 alf current use of anticoagulant therapy 0 05/24/2015 Shortness of breath 07/09/2014 Chest pain 07/09/2014 Claustrophobia 09/30/2013 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 Goal is less than 7%. Personally reviewed most recent A1c - Lab Results Component Value Date HGBA1C 6.7 11/18/2023 Personally reviewed POC blood sugar- elevated, not at goal of 80-180 Lab Results Component Value Date POCGLU 263 11/18/2023 Medication- continue metformin 1000mg twice daily. hold ozempic 0.5mg weekly until constipation has resolved. This level of constipation along with his history of Parkinson is concerning. We discussed having his constipation elevated by his PCP and his GI doctor prior to resuming his constipation. Monitor blood sugar daily Encouraged annual eye exam. last dilated eye exam was dr. Stafford Monofilament foot exam completed. normal Treated with Gabapentin Personally reviewed CMP eGFR- >90 Kidney function-at goal, normal Urine microalbumin/creatinine ratio - at goal. Goal is <30. Continue amlodipine, ramipril. Assessment & Plan (07/31/2023 2:26 PM CDT): This is a chronic condition which is at goal of less than 7%. Personally reviewed most recent A1c - Lab Results Component Value Date HGBA1C 6.4 07/31/2023 Personally reviewed POC blood sugar- at goal 80-180 Lab Results Component Value Date POCGLU 158 07/31/2023 Medication- stop Rybelsus, start ozempic 0.5mg weekly, continue metformin 1000mg twice daily. Monitor blood sugardaily . Encouraged annual eye exam. last dilated eye exam was [facility] in [place] Monofilament foot exam completed. loss of protective senses. Ambulatory referral to Podiatry Dr. Paige in [place] for diabetic foot care Personally reviewed CMP eGFR- 97 Kidney function- normal Urine microalbumin/creatinine ratio - need. goal <30 not treated with ramipril, amlodipine B/P today- at goal of <140/90. continue ramipril, amlodipine Personally reviewed lipid panel. at Goal of less than 70. Continue rosuvastatin Class 1 obesity due to exces s calories with serious comorbidity and body mass index (BMI) of 34.0 to 34.9 in adult 06/16/2012 Assessment & Plan (04/13/2024 5:28 PM AUTOMATIC MOUNTER): This is a chronic condition which continues to improve 3 lbs. Weight loss since last office visit Encouraged healthy eating which includes a low carb diet. Avoiding processed foods, sweets and fried foods. Encouraged 30 minutes of walking at least 5 days per week Discussed that exercise can be broken down into small sessions- for example 2- 15 minutes sessions or 3- 10 minutes sessions. Assessment & Plan (11/18/2023 1:59 PM CDT): This is a chronic condition which continues 5 lbs. Weight loss since last office visit Encouraged healthy eating which includes a low carb diet. Avoiding processed foods, sweets and fried foods. Encouraged 30 minutes of walking at least 5 days per week. Discussed that exercise can be broken down into small sessions- for example 2- 15 minutes sessions or 3- 10 minutes sessions. Assessment & Plan (07/31/2023 2:24 PM CDT): This is a chronic condition which is worsened 21 lb weight gain since 03/21 This was due to his inability to continue mounjaro Will restart Ozempic 0.5 mg weekly and titrate as tolerated Discussed complications of constipation. He is aware. Discussed treatments for constipation Parkinson's disease 07/11/2011 Assessment & Plan (10/23/2023 4:44 PM CDT): Pal Hurtado is a 63 y.o. right-handed man with idiopathic Parkinson disease with excellent response to levodopa, wearing off, and end-of-dose dyskinesia. He is doing very well after 18 years since motor onset. He doesn't have substantial cognitive problems and is independent in his institutional and basic ADLs. His non-motor symptoms are well managed in general. The major issue now is new wearing off and this is extremely bothersome to him since this is not a problem in the past. So we will focus on this. Importantly, peak onset benefit remains optimal. We recommended opicapone 50 mg once a day, but he will check first with insurance company to see if it will be covered. If so, we will go with this strategy. Other options like increasing the frequency of levodopa, MAO-B inhibitors (like rasagiline 1 mg a day), dopamine agonists (may prefer to avoid since he already has daytime sleepiness), higher dose of levodopa at each dose, and long-acting levodopa were considered. Each of these is a reasonable option. We would first explore these prior to even considering DBS. Mood is doing well as is cognitive function. Recommendations: - opicapone 50 mg daily pending insurance;strategy and side effects discussed. 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 He had bothersome wearing off and dyskinesia within the first few years of illness that astonishingly cleared up and he has done very well ever since. With a recent 40 lb weight loss (on semaglutide and now Mounjaro), he has been able to cut back his carbi/levo dose by a tab at each dose and is having no wearing off--but did have dyskinesia at his old dose after the weight loss. He is exercising regularly and staying active. He is taking regular boxing classes and not [employer]. Cognition and mood remain good, on escitalopram and mirtazapine and overall he is doing remarkably well for 17 years since symptom onset. Insomnia is under good control with trazodone, mirtazapine and clonazepam but this was substantial in the past. RBD remains reasonably well controlled on low dose clonazepam even with the mirtazapine on board. Recommendations: -continue same CD/LD. -continue mirtazapine, clonazepam, escitalopram and trazodone for insomnia -continue regular exercise and boxing. 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 He was having bothersome dyskinesias that substantially increased aftyer dramatic weight loss with semiglutide, but these dyskinesias have resolved since he decreased his levodopa dose 2 weeks ago. Yet, he continues to have good motor benefit and no problematic side-effects or wearing off on this new lower dose of 3 tabs 5 times daily. Thus, we will not make any dose adjustments today. He has been exercising more and eating healthier, and as a result has lost 30-40 lbs in the past few months as a likely explanation for his reduced levodopa requirement. We encouraged him to continue the regular exercise, but counseled him against actual boxing matches that would result in blows to the head. He is taking regular boxing classes and not [employer]. Cognition and mood remain good, and overall he is doing remarkably well for 17 years since symptom onset. RBD remains reasonably well controlled on low dose clonazepam. Mood is fine with mirtazapine and he has no side effects. 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 He previously had bothersome dyskinesia, but these improved after starting clonazepam (likely as a result of improved sleep). His sleep is generally pretty good and RBD not problematic with mirtazapine, clonazepam and trazodone and he may continue taking an extra dose of trazodone as needed. He should continue RSB and should start APDA youtube channel exercises and PD [employer]. He has mild dysphagia and could also consider ST. If balance worsens, he could consider PT. Recommendations: -continue same CD/LD -continue mirtazapine, clonazepam, and trazodone for insomnia (may continue to take an extra dose of trazodone as needed) -continue regular exercise, start APDA youtube channel exercises and PD [employer], could consider PT and ST for dysphagia. 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 He is not having any problematic side-effects and benefit is usually lasting from dose to dose, so we will not make any adjustments to his CD/LD today. He previously had bothersome dyskinesias, but these improved after starting clonazepam (likely as a result of improved sleep). He endorses rare en-passant hallucinations that we will need to monitor, but are not a problem currently. He maintains excellent status. Recommendations: -continue same CD/LD -continue mirtazapine, clonazepam, and trazodone for insomnia -continue regular exercise -send extra brain donation bracelet Assessment & Plan (10/25/2020 5:24 PM CDT): He has stage 2 PD of 16 years (tremor-predominant) with excellent response to levodopa perhaps with associated occasional peak-dose or off-dose dystonia. He had dyskinesia in the past which has spontaneously resolved several years ago. He is doing well from a motor-standpoint. He does have occasional dose failures at night. He also has associated off-period anxiety especially with those dose failures. We will continue his same dose but he may continue to take some doses early or a few pills PRN if he has worn off midway through his dose. Mood is doing well with mirtazapine, escitalopram, and clonazepam. At this time, he has minimal off-period with minimal off-period anxiety. He does not have cognitive complaints at this time. Recommendation: - Continue LD/CD at the current dose. May take additional tabs as needed for wearing off or doses early as needed. - May crush the 9pm tablets with orange juice to improve delivery efficiency. Can also crush the additional rescue pills in orange juice as well. - Continue exercise/ walking daily Assessment & Plan (06/22/2020 6:13 PM AUTOMATIC MOUNTER): He has stage 2 PD of 16 years (tremor-predominant) with excellent response to levodopa perhaps with associated occasional peak-dose or off-dose dystonia. He had dyskinesias in the past which has spontaneously resolved. He is doing well from a motor-standpoint. He does have occasional dose failures at night. He also has associated off-period anxiety especially with those dose failures. To address this, it may be reasonable to try liquid levodopa in the evening. Mood is doing well with mirtazapine, escitalopram, and clonazepam. His off- period anxiety should be treated with optimizing levodopa. At this time, he has minimal off-period with minimal off-period anxiety. He does not have cognitive complaints at this time. Recommendation: - Continue LD/CD at the current dose - Crush the 9pm tablets with orange juice to improve delivery efficiency. Can also crush the additional rescue pills in orange juice as well. - Continue exercise/ walking daily - Follow up with [facility] in 6 months, [address] Ramos Assessment & Plan (02/11/2020 11:13 AM CDT): He has mild stage 2 PD (at last office visit) with excellent response to levodopa, and his previously bothersome leg discomfort has improved with exercise. Dyskinesia spontaneously resolved after his depression and anxiety improved and he rarely has any at this point. He does have some occasional breakthrough tremor and a dose failure every now and then but doesn't think it is enough to change dosing or to (yet) consider DBS. He no longer participates in boxing and has not been exercising so I gave him info on APDA youtube channel exercises. He needs to add stretching as well. Clonazepam, trazodone and mirtazapine are effective for insomnia and RBD. He should continue Miralax for constipation. His depressive symptoms and anxiety have responded well to his current meds with escitalopram and mirtazapine. He has no side effects and it is reasonable to continue this. Recs: 1. Same levodopa, clonazepam, escitalopram, trazodone mirtazapine but change timing of bedtime meds to 30-60 minutes before trying to sleep. 2. Start APDA youtube channel exercises, not interested in PT. 4. Same Miralax for constipation. Assessment & Plan (10/05/2019 3:30 PM CDT): He has mild stage 2 PD (at last office visit) with excellent response to levodopa, and his previously bothersome leg discomfort has improved with exercise. Dyskinesia spontaneously resolved after his depression and anxiety improved and he rarely has any at this point. He does have some occasional breakthrough tremor and a dose failure every now and then but doesn't think it is enough to change dosing or to (yet) consider DBS. He no longer participates in boxing and has not been exercising so I gave him info on APDA youtube channel exercises. He needs to add stretching as well. Clonazepam, trazodone and mirtazepine are effective for insomnia and RBD but he does have occasional insomnia and really needs to time these meds within an hour of trying to fall asleep. He has some constipation mixed with diarrhea and I suspect the diarrhea is when he has a major blockage so I encouraged Miralax. His depressive symptoms and anxiety have responded well to his current meds with escitalopram and mirtazapine. He has no side effects and it is reasonable to continue this. Recs: 1. Same levodopa, clonazepam, escitalopram, trazodone mirtazapine but change timing of bedtime meds to 30-60 minutes before trying to sleep. 2. Start APDA youtube channel exercises, not interested in PT. 4. Add Miralax for constipation. Assessment & Plan (03/20/2019 3:24 PM AUTOMATIC MOUNTER): He has mild stage 2 PD with excellent response to levodopa, and his previously bothersome leg discomfort has improved with exercise. Dyskinesia spontaneously resolved after his depression and anxiety improves. He does have some occasional breakthrough tremor and a dose failure every now and then but doesn't think it is enough to change dosing or to (yet) consider DBS. He no longer participates in boxing but has taken up walking and this has been beneficial for him. He needs to add stretching as well. Clonazepam, trazodone and mirtazepine are effective for insomnia and RBD but he does have occasional insomnia and may take an extra trazodone when needed. He has some constipation mixed with diarrhea and I suspect the diarrhea is when he has a major blockage so I encouraged Miralax. His depressive symptoms and anxiety have responded well to his current meds with escitalopram and mirtazapine. He has no side effects and it is reasonable to continue this. Recs: 1. Same levodopa, clonazepam, escitalopram, mirtazapine. 2. Same regularly scheduled trazodone but may add an as needed dose for middle insomnia. 3. Start stretching, continue exercise. 4. Add Miralax for constipation. Assessment & Plan (09/08/2018 4:20 PM CDT): He has mild stage 2 PD with excellent response to levodopa, and his previously bothersome leg discomfort has improved with exercise. He no longer participates in boxing but has taken up walking and this has been beneficial for him. His dyskinesia has resolved. Clonazepam, trazodone and mirtazepine are effective for insomnia and RBD. He appears to be doing very well and should not require medication changes at this time. His depressive symptoms and anxiety have responded well to his current meds with escitalopram and mirtazapine. He has no side effects and it is reasonable to continue this. Recs: 1. Same levodopa, clonazepam, escitalopram, trazadone, mirtazapine. 2. Start PT and resume exercise when cleared by surgeon (recent abdominal hernia repair). Immunizations Immunization Administration Dates Next Due Influenza, Quadrivalent, Alyssa l Culture-based MDCK, Preservative Free, Antibiotic Free, Intramuscular 02/09/2020 Influenza, Split 01/27/2018,01/21/2013 Pfizer SARS-CoV-2 Monovalent Vaccination (12+ Yrs) PURPLE 08/01/2021,01/20/2021,07/19/2020,06/28 Social History Tobacco Use Types Packs/Day Years Used Date Smoking Tobacco: Former Cigarettes 0.5 23 1 976 - 1999 Smokeless Tobacco: Never Tobacco Cessation:Counseling Given: Not Answered Alcohol Use Standard Drinks/Week Comments Yes 3 (1 standard drink = 0.6 oz pur e alcohol) AUDIT-C Answer Date Recorded Q1: How often do you have a drink containing alc ohol? 2-3 times a week 03/07/2022 Average Number of Drinks Not on file 022 Frequency of Binge Drinking Not on file 12/2021 Personal Safety Answer Date Recorded Have you ever been in or are you currently in a harmful physical or emotional relationship or is someone making you feel afraid or unsafe? Denies 03/07/2023 Sex and Gender Information Value Date Recorded Sex Assigned at Not on file Legal Sex Male 12:49 AM AUTOMATIC MOUNTER Gender Identity Male 01/07/2021 10:34 AM CDT Sexual Orientation Straight 06/15/2020 11 :14 AM AUTOMATIC MOUNTER Last Filed Vital Signs Vital Sign Reading Time Taken Comments Blood Pressure 126/72 07/15/2024 2:58 PM CDT Pulse 70 04/13/2024 12:55 PM AUTOMATIC MOUNTER Temperature 36.2 C (97.2 F) 03/07/2023 7:32 AM AUTOMATIC MOUNTER Respiratory Rate 17 03/07/2023 8:39 AM AUTOMATIC MOUNTER Oxygen Saturation 97% 01/14/2024 12:11 PM CDT Inhaled Oxygen Concentration - - Weight 113 kg (249 lb 3.2 oz) 07/15/2024 2:58 PM CDT Height 180.3 cm (5' 11 ) 07/15/2024 2:58 PM CDT Body Mass Index 34.76 07/15/2024 2:58 PM CDT Plan of Treatment Not on file Medical Devices Implanted Type Area Loop Tacker Device Identifier Shelf Expiration Date Model / Serial / Lot [employer]/C R Bard [id number] Monofilament Soft Lightweight Low Profile Square - Sn/A - [id number] Implanted:Qty: 1 on 08/28/2018 by George Washington MD at [facility] [employer]/C R [id number] 05/26/2023 [id number] / N/A / [id number] Procedures Procedure Name Priority Date/Time Associated Diagnosis Comments POCT HEMOGLOBIN A1C Routine 07/15/2024 3 :02 PM CDT Type 2 diabetes 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, with long-term current use of insulin (HCC) POCT GLUCOSE Routine 07/15/2024 3:02 PM CDT Type 2 diabetes 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, with long-term current use of insulin (HCC) EGFR Routine 11/06/2023 8:28 AM CDT Type 2 diabetes 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, unspecified whether mcc insulin use (HCC) LIPID PANEL Routine 11/06/2023 8:28 AM CDT Type 2 diabetes 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, 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 (HCC) ALBUMIN CREATININE RATIO, URINE Routine 11/06/2023 8:28 AM CDT Type 2 diabetes 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, unspecified whether mcc insulin use (HCC) COLONOSCOPY 03/07/2023 7:46 AM AUTOMATIC MOUNTER from Last 3 Months or Most Recently Relevant to Health Maintenance Results * (ABNORMAL) POCT hemoglobin A1c (07/15/2024 3:02 PM CDT) Hemoglobin A1C, POC 8.3 4.0 - 5.6 % Blood 07/15/2024 3:02 PM CDT us Deloris Chairez NP POINT OF CARE TEST ORDERABLES F inal Result * POCT glucose (07/15/2024 3:02 PM CDT) Glucose Blood, POC 227 mg/dL Blood 07/15/2024 3:02 PM CDT us Deloris Chairez NP POINT OF CARE TEST ORDERABLES F inal Result * eGFR (11/06/2023 8:28 AM CDT) eGFR >90 >=60 mL/min/1. 73 m2 Comment: Interpretive Data Reference Interval Normal >/= 90 mL/min/1.73m2 Mildly decreased* 60 - 89 mL/min/1.73m2 Mildly to moderately decreased 45 - 59 mL/min/1.73m2 Moderately to severely decreased 30 - 44 mL/min/1.73m2 Severely decreased 15 - 29 mL/min/1.73m2 Kidney Failure < 15 mL/min/1.73m2 *Relative to young adult level Estimated glomerular filtration rate is determined by the 2020 CKD-EPI equation recommended by the National Kidney Foundation (A Unifying Approach to GFR Estimation: Recommendations of the NKF-ASK Task Force on Reassessing the Inclusion of Race in Diagnosing Kidney Disease, JASN 2020). The CKD-EPI equation should not be used for patients with unstable renal function and has not been validated in children and those over 70. Current interpretive data was last reviewed 2021. Blood 11/06/2023 8:28 AM CDT 11/06/2023 2:07 PM CDT Deloris Chairez NP LAB BLOOD ORDERABLES Final Resu lt Performing Organization Address [facility] de Phone Number KATHIE [phone] [place] [address] * Albumin Creatinine Ratio, Urine (11/06/2023 8:28 AM CDT) Albumin Ur 17.4 mg/L Comment: Interpretive Data No reference range established. Current interpretive data was last revised 2018. Creatinine Ur 171.5 mg/dL KATHIE SOLORZANO Comment: Interpretive Data No reference range established. Current interpretive data was last revised 2018. Albumin Creatinine Ratio, Ur 10 1 - 29 mg/g KATHIE SOLORZANO Urine 11/06/2023 8:28 AM CDT 11/06/2023 2:04 PM CDT Deloris Chairez NP LAB URINE ORDERABLES Final Resu lt Performing Organization Address [facility] Co de Phone Number KATHIE [address] Department [place] [address] * (ABNORMAL) Lipid panel (11/06/2023 8:28 AM CDT) Cholesterol 204(H) 30 - 199 mg/dL Comment: Interpretive Data Ages < or = 19 years Acceptable: <170 mg/dL Borderline high: 170-199 mg/dL High: >or= 200 mg/dL Ages > or = 20 years Desirable: <200 mg/dL Borderline high: 200-239 mg/dL High: >or= 240 mg/dL Literature References: 1. Expert Panel on Integrated Guidelines for Cardiovascular Health and Risk Reduction in Children and Adolescents. Pediatrics 2011;128:S213 2. NCEP Expert Panel. Circulation 2004;110:227 Current Interpretive Data was last revised on 2017. Triglycerides 421(H) <=149 mg/dL KATHIE SOLORZANO Comment: Interpretive Data Ages < or = 9 years Acceptable: <75 mg/dL Borderline high: 75-99 mg/dL High: >or= 100 mg/dL Ages 10 to 20 years Acceptable: <90 mg/dL Borderline high: 90-129 mg/dL High: >or= 130 mg/dL Ages > or = 20 years Desirable: <150 mg/dL Borderline high: 150-199 mg/dL High: 200-499 mg/dL Very high: >or= 499 mg/dL Literature References: 1. Expert Panel on Integrated Guidelines for Cardiovascular Health and Risk Reduction in Children and Adolescents. Pediatrics 2011;128:S213 2. NCEP Expert Panel. Circulation 2004;110:227 Current Interpretive Data was last revised on 2017. HDL 35(L) >=40 mg/dL KATHIE SOLORZANO Comment: Interpretive Data Ages < or = 19 years Acceptable: >45 mg/dL Borderline low: 40-45 mg/dL Low: <40 mg/dL Ages > or = 20 years Desirable: >or= 60 mg/dL Low: <40 mg/dL Literature References: 1. Expert Panel on Integrated Guidelines for Cardiovascular Health and Risk Reduction in Children and Adolescents. Pediatrics 2011;128:S213 2. NCEP Expert Panel. Circulation 2004;110:227 Current Interpretive Data was last revised on 2017. LDL, calculated See Comment <=129 mg/dL KATHIE SOLORZANO Comment: Unable to calculate due to elevated Triglycerides. Interpretive Data Ages < or = 19 years Acceptable: <110 mg/dL Borderline high: 110-129 mg/dL High: >or= 130 mg/dL Ages > or = 20 years Optimal: <100 mg/dL Near optimal: 100-129 mg/dL Borderline high: 130-159 mg/dL High: >160 mg/dL Literature References: 1. Expert Panel on Integrated Guidelines for Cardiovascular Health and Risk Reduction in Children and Adolescents. Pediatrics 2011;128:S213 2. NCEP Expert Panel. Circulation 2004;110:227 Current Interpretive Data was last revised on 2017. Non-HDL Cholesterol 169 mg/dL KATHIE SOLORZANO Comment: Interpretive Data Ages < or = 19 years Acceptable: <120 mg/dL Borderline high: 120-144 mg/dL High: >145 mg/dL Ages > or = 20 years When triglycerides are >200 mg/dL, Non-HDL cholesterol is a secondary target of therapy with treatment goals that are 30 mg/dL greater than the LDL cholesterol target. Literature References: 1. Expert Panel on Integrated Guidelines for Cardiovascular Health and Risk Reduction in Children and Adolescents. Pediatrics 2011;128:S213 2. NCEP Expert Panel. Circulation 2004;110:227 Current Interpretive Data was last revised on 2017. Chol/HDL ratio 6 KATHIE Blood 11/06/2023 8:28 AM CDT 11/06/2023 2:04 PM CDT Narrative KATHIE SOLORZANO - 11/06/2023 2:26 PM CDT These lab test should be done fasting. This means do not eat or drink for at least 12 hours prior to getting your blood drawn. us Deloris Chairez NP LAB BLOOD ORDERABLES Final Resu lt KATHIE [address] [place] [address] * COLONOSCOPY (03/07/2023 7:46 AM AUTOMATIC MOUNTER) Anatomical Region Laterality Modality Other Narrative Procedure Note Chano Santos MD - 03/07/2023 7:46 AM CST ENDOSCOPY LAB Patient Name: Pal Hurtado Procedure Date: 03/07/2023 7:46 AM Admit Type: Outpatient Room: [facility] 8 Date of : 1960 Instrument Name: [id number] Gender: Male Note Status: Finalized Procedure: Colonoscopy Indications: Surveillance: Piecemeal removal of large sessile adenoma last colonoscopy (< 3 yrs), Lastcolonoscopy: February 2022 Providers: Chano Santos M.D. Referring MD: Babatunde Rees M.D., Enmanuel Vasquez M.D. Medicines: Monitored Anesthesia Care Complications: No immediate complications. Estimated Blood Loss: Estimated blood loss: none. Procedure: Pre-Anesthesia Assessment: - Immediately prior to administration ofmedications, the patient was re-assessed for adequacy to receive sedatives. - The risks and benefits of the procedure and the sedation options and risks were discussed with the patient. All questions were answered and informed consent was obtained. The benefits, risks and alternatives of theprocedure and sedation were discussed and informed consentwas obtained. All questions were answered. Please referto the signed informed consent document in the medical record. The scope was passed under direct vision.The Colonoscope was introduced through the anus and advanced to the the cecum, identified byappendiceal orifice and ileocecal valve. The colonoscopy was performed without difficulty. The patient tolerated the procedure well. The quality of the bowel preparation was evaluated using the BBPS (BostonBowel Preparation Scale) with scores of: Right Colon = 3, Transverse Colon = 3 and Left Colon = 3 (entiremucosa seen well with no residual staining, smallfragments of stool or opaque liquid). The total BBPS score equals 9. The bowel preparation used was GoLYTELYvia split dose instruction. Findings: The perianal and digital rectal examinations were normal. Multiple small and large-mouthed diverticula were found in thesigmoid colon. A medium post polypectomy scar was found in the ascending colon. The scar tissue was healthy in appearance. There was no evidence of the previous polyp. Biopsies were taken with a cold forceps forhistology. The exam was otherwise normal throughout the examined colon. Impression: - Diverticulosis in the sigmoid colon. - Post-polypectomy scar in the ascending colon. Biopsied. Recommendation: - Repeat colonoscopy in 3 years for surveillance,can be with local GI physician. - Return to primary care physician as previously scheduled. - Call my nurses in the GI office at [phone] ([phone]) for your final pathology results in7 days. Attending Participation: I personally performed the entire procedure. Electronically signed by Chano Santos MD Chano Santos M.D. 03/07/2023 8:20:49 AM This document was signed electronically. Number of Addenda: 0 Note Initiated On: 03/07/2023 7:46 AM Scope Withdrawal Time: 0 hours 8 minutes 15 seconds Scope In: 8:00:26 AM Scope Out: 8:17:54 AM us Chano Santos MD ENDOSCOPY PROCEDUR ES Final Result from Last 3 Months or Most Recently Relevant to Health Maintenance Insurance MEDICARE [facility] TRADITIONAL MEDICARE [facility] TRADITIONAL [facility] TRADITIONAL MEDIC[facility] Advance Directives For more information, please contact: [phone] * Full Code (Latest Code Status on File) Date Activated Date Inactivated Comments 03/07/2023 7:26 AM 03/07/2023 1:13 PM * Full Code Date Activated Date Inactivated Comments 03/07/2022 6:48 AM 03/07/2022 1:17 PM * Full Code Date Activated Date Inactivated Comments 10/17/2020 8:10 AM 10/17/2020 2:59 PM * Full Code Date Activated Date Inactivated Comments 08/28/2018 9:13 PM 08/29/2018 10:17 PM Care Teams Bridge/Structure Inspection Team Leader Relationship Specialty Start Date End Date Babatunde Rees MD PCP - General 08/27/16
--- OUTSIDE RECORDS SUMMARY | 2024-08-06 12:34 | XMS_ITS | Continuity of Care Document ---
Author Organization [facility] Address [address] [place] [address] Phone Care Team Providers Care Pulp Cooker Name Role Phone Marisela De Leon PA-C Unavailable Unavailable Allergies, Adverse Reactions, Alerts Substance Reaction Status Criticality No Known Allergies Active No Inform ation Medications Medication Instructions Dosage Effective Dates (start - stop) Status Comments CLONAZEPAM (unknown strength) Not Available - Active ESCITALOPRAM OXALATE (unknown strength) Not Available - Active TRAZODONE HCL (unknown strength) Not Available - Active AMLODIPINE BESYLATE (unknown strength) Not Available - Active LANSOPRAZOLE (unknown strength) Not Available - Active FENOFIBRATE (unknown strength) Not Available - Active MIRTAZAPINE (unknown strength) Not Available - Active RAMIPRIL (unknown strength) Not Available - Active CARBIDOPA-LEVODOPA ER (unknown strength) Not Available - Active ONGLYZA (unknown strength) Not Available - Active METFORMIN ER OSMOTIC (unknown strength) Not Available - Active BYDUREON PEN (unknown strength) Not Available - No Longer Active QVAR (unknown strength) Not Available - No Longer Active Procedures Procedure Date POSTOP FOLLOW-UP VISIT MRI ANY JT LXTR C-MATRL RADEX KNE COMPL 4/MORE VIEWS OFFICE CONSULTATION RADEX WRST COMPL MINIMUM 3 VIEWS 2015 Advance Directives Directive Yes / No Effective Date File Name No Information Encounters Encounter Description Practice Location Reason(s) For Visit Diagnoses Date Provider Providers Copied on Encounter [facility], [address], [place], [address], [place] tel:[phone] [facility] Lateral meniscal tear, right, subsequent encounterMed ial meniscus tear, right, subsequent encounter 7 Moises Antonio. [address] [facility] [address] [address], [place], [place], [id number]. tel:[phone] [facility], [address] [address], [place], [address], [place] tel:[phone] [facility] Degenerative tear of posterior horn of medial meniscus of right kneeOther meniscus derangements , other lateral meniscus, right knee 7 Regan Pinto. [address] [facility], [place], [place], [id number]. tel:[phone] [facility], [address] [address], [place], [address], [place] tel:[phone] [facility] No Information No Information Referring Provider: Blair Spears, [address] [facility], [place], [address]. tel:[phone] OFFICE CONSULTATION [facility], [address] [address], [place], [address], [place] tel:[phone] [facility] Right knee pain (chief complaint) Pain in right knee 7 Moises Antonio. [address], [place], [place], [id number]. tel:[phone] [facility], [address] [address], [place], [address], [place] tel:[phone] [facility] Pain in left wristScaphol unate ligament injury, no instability, left, initial encounter 6 Petrocelli Valentín. [address] [facility] [address], [place], [place], [id number]. tel:[phone] Referring Provider: Babatunde White, [address] , [place], [address]. tel:[phone] Family History Family Member Type Diagnosis Age At Onset Father Problem (finding) malignant neoplasm of l parris Mother Problem (finding) Liver disease Payers Payer name Insurance type Covered republican ID Authoryusef de la paz(s) No Information Social History Type Description Quantity Date Captured Comments Alcohol Use Details Unknown Caffeine Use Details Unknown Tobacco Use Status Smoking Status No Information Sex Male Chief Complaint And Reason For Visit No Information Reason For Referral Reason For Referral No Information Plan Of Treatment Date Type Action Status Referral Ordered: MRI ANY JT LXTR C-MATRL RT knee Appointment date/timeframe: 05/18/2016 ordered Referral Ordered: RADEX KNE COMPL 4/MORE VIEWS RT ordered Referral Ordered: RADEX WRST 2 VIEWS RT wrist ordered Referral Ordered: RADEX WRST COMPL MINIMUM 3 VIEWS LT wrist ordered History Of Present Illness Encounter Date Complaint History Of Prese nt Illness Right knee pain Functional Status Date Functional Assessmen t No Information Instructions Date Instruction Additional Infor mation Discussed treatment options Rela todd to Lateral meniscal tear, right, subsequent encounter Call for increase in pain Relate d to Lateral meniscal tear, right, subsequent encounter Discussed treatment options Rela todd to Pain in right knee Call for increase in pain Relate d to Pain in right knee Assessments Type Assessment Date assessment Lateral meniscal tear, right, valentin bsequent encounter assessment Medial meniscus tear, right, sub sequent encounter Patient Care Teams Name Effective Dates (start - stop) Status Members No Information
--- OUTSIDE RECORDS SUMMARY | 2024-08-06 12:34 | XMS_ITS | Clinical Summary ---
Author Organization [facility] [address] Address [address] [place] [address] Care Team Providers Care Evp Head Of [employer] Experience Strategy Name Role Phone Babatunde Rees MD Primary Care Provider Allergies No known active allergies Medications ONETOUCH [...] 03/29 Assessment & Plan (04/14/2024 12:36 PM BLOCK MAKING MACHINE OPERATOR): Reports pain to the left foot and ankle. Ambulatory referral to Dr. gallegos Type 2 diabetes mellitus wit h hyperglycemia, with long-term current use of insulin 04/13/2024 Assessment & Plan (04/13/2024 5:27 PM BLOCK MAKING MACHINE OPERATOR): This is a chronic condition which is [...] units daily. Monitor blood sugar continuously with freestyle Gurwinder 3 cgm. Encouraged annual eye exam. last dilated eye exam was [facility] in [place] Monofilament foot exam completed. Protective senses -intact [...] 07/31/2023 Assessment & Plan (04/13/2024 5:28 PM BLOCK MAKING MACHINE OPERATOR): This is a chronic condition which is [...] 01/28/2023 Presence of left artificial knee joint 2 Primary osteoarthritis of right knee 02/20/2022 Encounter for colonoscopy following colon polyp removal 11/22/2020 Overview (11/22/2020): Added automatically from request for surgery [id number] Palpitations 01/07/2020 Essential hypertension 01/07/2020 Assessment & Plan (04/13/2024 5:29 PM BLOCK MAKING MACHINE OPERATOR): This is a chronic condition which is [...] (05/16/2018): Added automatically from request for surgery [id number] Incisional hernia 04/10/2018 Dyskinesia due to Parkinson's disease 08/19/2017 Pain in right knee 05/15/2016 Pain in left wrist 03/28/2016 Chronic pulmonary embolism 05/24/2015 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 last dilated eye exam was [facility] in [place] Monofilament foot exam completed. loss of protective senses. Ambulatory referral to Podiatry Dr. Paige in [place] for diabetic foot care Personally reviewed CMP [...] 06/16/2012 Assessment & Plan (04/13/2024 5:28 PM BLOCK MAKING MACHINE OPERATOR): This is a chronic condition which continues [...] - follow up in 6 months with MANAGER TRANSFER and in 1 year with us Visit was started at 3:25 and ended at 4:30 Luis Mulligan MD Movement Neurology Fellow [facility] in [place] Assessment & Plan (04/17/2023 12:13 PM BLOCK MAKING MACHINE OPERATOR): He has stage 2 tremor-predominant PD with [...] head) Assessment & Plan (03/30/2022 5:17 PM BLOCK MAKING MACHINE OPERATOR): He has stage 2 tremor-predominant PD with [...] daily Assessment & Plan (06/22/2020 6:13 PM BLOCK MAKING MACHINE OPERATOR): He has stage 2 PD of 16 [...] so I gave him info on APDA Hexagotube channel exercises. He needs to add stretching [...] constipation. Assessment & Plan (03/20/2019 3:24 PM BLOCK MAKING MACHINE OPERATOR): He has mild stage 2 PD with [...] cleared by surgeon (recent abdominal hernia repair). Encounters Date Type Department Care Team Description 07/15/2024 3:00 PM CDT Office Visit [facility] Medical Group Diabetes Endocrine Care at [address] [address] Deloris Chairez NP Type 2 diabetes 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, with [...] continuous glucose monitoring device 07/08/2024 Orders Only [facility] Movement Disorders [address] [place] [phone] Osiel Ramos MD 07/08/[address] [facility] Medical [facility] Diabetes Endocrine Care at [address] [address] Deloris Chairez NP from Last 3 Months Immunizations Immunization Administration Dates Next Due Influenza, Quadrivalent, Alyssa l Culture-based MDCK, Preservative Free, Antibiotic Free, Intramuscular 02/09/2020 Influenza, Split 01/27/2018,01/21/2013 Pfizer SARS-CoV-2 Monovalent Vaccination (12+ Yrs) PURPLE 08/01/2021,01/20/2021,07/19/2020,06/28 Surgical History Surgery Date Site/Laterality Comments KNEE ARTHROSCOPY Knee Arthroscopy - (Added by TW Conv) TOTAL KNEE ARTHROPLASTY Knee Replacement - (Added by TW Conv) SHOULDER SURGERY Shoulder Surgery - (Added by TW Conv) BACK SURGERY Back Surgery - (Added by TW Conv) WOUND DEBRIDEMENT 12/19/2016 surgical wound track debridement HERNIA REPAIR 10/25/2016 recurrent incisional hernia HERNIA REPAIR 1960 incarcerated ventral hernia LUMBAR SPINE SURGERY 04/29/1988 - 04/28/1989 MENISCUS SURGERY Right x2 MENISCUS SURGERY Left x2 COLONOSCOPY Medical History Medical History Date Comments Personal history of venous t hrombosis and embolism Pulmonary Embolism - (Added by TW Conv) Personal history of other me ntal and behavioral disorders History of anxiety disorder - (Added by TW Conv) Personal history of other di seases of the circulatory system History of cardiac arrhythmi a - (Added by TW Conv) Incisional hernia 04/10/2018 Sleep apnea Colon polyp Chronic constipation GERD (gastroesophageal reflux disease) Dysphagia Hypertension Asthma Type 2 diabetes mellitus (HCC) Parkinson disease (HCC) Anxiety Diverticulosis Hyperlipidemia Anxiety Depression Arthritis Family History Medical History Relation Name Comments Cancer Father Family history of malignant neoplasm - (Added by TW Conv)/Family history of cancer - (Added by TW Conv) Hypertension Father Family history of hypertension - (Added by TW Conv) Lung cancer Father Lung disease Father Family history of lung disease - (Added by TW Conv) Colon polyps Mother Lung cancer Sister Family history of lung cancer - (Added by TW Conv) Anesthesia problems Neg Hx Relation Name Status Comments Father Mother Sister Social History Tobacco Use Types Packs/Day Years Used Date Smoking Tobacco: Former Cigarettes 0.5 23 1 976 - 1998 Smokeless Tobacco: Never Tobacco Cessation:Counseling Given: Not [...] on file Legal Sex Male 12:49 AM BLOCK MAKING MACHINE OPERATOR Gender Identity Male 01/07/2021 10:34 AM CDT Sexual Orientation Straight 06/15/2020 11 :14 AM BLOCK MAKING MACHINE OPERATOR Obstetrics History Last Filed Vital Signs Vital Sign Reading Time Taken Comments Blood Pressure 126/72 07/15/2024 2:58 PM CDT Pulse 70 04/13/2024 12:55 PM BLOCK MAKING MACHINE OPERATOR Temperature 36.2 C (97.2 F) 03/07/2023 7:32 AM BLOCK MAKING MACHINE OPERATOR Respiratory Rate 17 03/07/2023 8:39 AM BLOCK MAKING MACHINE OPERATOR Oxygen Saturation 97% 01/14/2024 12:11 PM CDT Inhaled Oxygen Concentration - - Weight 113 kg (249 lb 3.2 oz) 07/15/2024 2:58 PM CDT Height 180.3 cm (5' 11 ) 07/15/2024 2:58 PM CDT Body Mass Index 34.76 07/15/2024 2:58 PM CDT Plan of Treatment Health Maintenance Due Date Last Done Comments Depression Screening 1960 Hepatitis C Screening 1960 Prostate Cancer Screening-PSA 1960 Dilated Eye Exam 1960 DTaP/Tdap/Td Vaccine (1 - Tdap) 1971 Hepatitis B Screening 1978 Regular Well Visit/Exam 18-64 1978 Pneumococcal vaccine <65 (1 of 2 - PCV) 1979 Zoster Vaccine (1 of 2) 2010 Covid-19 Vaccine (5 - 2023-2 5 season) 2023 08/01/2021, 01/20/2021, 07/19/2020, Additional history exists Albumin Creatinine Ratio, Urine 11/05/2024 Lipid Panel 11/05/2024 11/06/2023, 08/28/2018 eGFR 11/05/2024 11/06/2023, 03/31/2021 Hemoglobin A1C 01/15/2025 07/15/2024, 03/29, 11/18/2023, Additional history exists Foot Exam 04/13/2025 04/13/2024, 10/28, 07/31/2023 Colon Cancer Screening-Colonoscopy 03/07/2033 03/07/2023, 03/07/2022, 01/04/2022, Additional history exists Colon Cancer Screening-CT Colonography Discontinued 03/07/2023, 03/07/2022, 01/04/2022, Additional history exists Colon Cancer Screening-DNA Stool Discontinued 03/07/2023, 03/07/2022, 01/04/2022, Additional history exists Colon Cancer Screening-FIT Discontinued 03/07, 03/07/2022, 01/04/2022, Additional history exists Colon Cancer Screening-Sigmoidoscopy Discontinued 03/07/2023, 03/07/2022, 01/04/2022, Additional history exists Influenza Vaccine Completed 01/27/2024, , 01/27/2018, Additional history exists Medical Devices Implanted Type Area Re Dye Hand Device Identifier Shelf Expiration Date Model / Serial / Lot [employer] Inc/C R Bard [id number] Monofilament Soft Lightweight Low Profile Square - Sn/A - [id number] Implanted:Qty: 1 on 08/28/2018 by Geroge Washington MD at [facility] [employer] Bard [id number] 05/26/2023 [id number] / N/A / [id number] Procedures Procedure Name Priority Date/Time Associated Diagnosis [...] 2 diabetes 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, unspecified whether 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) LIPID PANEL Routine 11/06/2023 8:28 AM CDT Type 2 diabetes 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, unspecified whether mcc insulin use (HCC) ALBUMIN CREATININE RATIO, URINE Routine 11/06/2023 8:28 AM CDT Type 2 diabetes 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, unspecified whether mcc insulin use (HCC) COLONOSCOPY 03/07/2023 7:46 AM BLOCK MAKING MACHINE OPERATOR from Last 3 Months or Most Recently [...] CDT 11/06/2023 2:07 PM CDT Deloris Chairez MANAGER TRANSFER LAB BLOOD ORDERABLES Final Resu lt Performing Organization Address [facility] Co de Phone Number KATHIE [address] [facility] [employer] [place] [address] * Albumin Creatinine Ratio, Urine (11/06/2023 8:28 AM CDT) Albumin Ur 17.4 mg/L Comment: Interpretive Data No reference range established. Current interpretive data was last revised 2018. Creatinine Ur 171.5 mg/dL KATHIE Comment: Interpretive Data No reference range established. Current interpretive data was last revised 2018. Albumin Creatinine Ratio, Ur 10 1 - 29 mg/g KATHIE Urine 11/06/2023 8:28 AM CDT 11/06/2023 2:04 PM CDT Deloris Chairez MANAGER TRANSFER LAB URINE ORDERABLES Final Resu lt Performing Organization Address [facility] Co de Phone Number KATHIE [address] [facility] [place] [address] * (ABNORMAL) Lipid panel (11/06/2023 8:28 AM [...] on 2017. Triglycerides 421(H) <=149 mg/dL KATHIE Comment: Interpretive Data Ages < or = [...] CDT 11/06/2023 2:04 PM CDT Narrative KATHIE - 11/06/2023 2:26 PM CDT These lab test should be done fasting. This means do not eat or drink for at least 12 hours prior to getting your blood drawn. us Deloris Chairez NP LAB BLOOD ORDERABLES Final Resu lt KATHIE [id number] [address] [facility] of Laboratories [place] [phone] * COLONOSCOPY (03/07/2023 7:46 AM BLOCK MAKING MACHINE OPERATOR) Anatomical Region Laterality Modality Other Narrative Procedure Note Chano Santos MD - 03/07/2023 7:46 AM CST ENDOSCOPY LAB Patient Name: Pal Hurtado Procedure Date: 03/07/2023 7:46 AM Admit Type: Outpatient Room: [facility] 8 Date of : 1960 Instrument Name: [...] my nurses in the GI office at [phone] ([phone]) for your final pathology results in7 days. Attending Participation: I personally performed the entire procedure. Electronically signed by Chano Santos MD Chano Santos M.D. 03/07/2023 8:20:49 AM This document was signed electronically. Number of Addenda: 0 Note Initiated On: 03/07/2023 7:46 AM Scope Withdrawal Time: 0 hours 8 minutes 15 seconds Scope In: 8:00:26 AM Scope Out: 8:17:54 AM Chano Santos MD ENDOSCOPY PROCEDUR ES Final Result from Last 3 Months or Most Recently Relevant to Health Maintenance Insurance MEDICARE JUAN R TRADITIONAL MEDICARE [facility] TRADITIONAL [id number] [place] [address] TRADITIONAL MEDICARE Advance Directives For more information, please contact: [phone] * Full Code (Latest Code Status on File) Date Activated Date Inactivated Comments 03/07/2023 7:26 AM 03/07/2023 1:13 PM * Full Code Date Activated Date Inactivated Comments 03/07/2022 6:48 AM 03/07/2022 1:17 PM * Full Code Date Activated Date Inactivated Comments 10/17/2020 8:10 AM 10/17/2020 2:59 PM * Full Code Date Activated Date Inactivated Comments 08/28/2018 9:13 PM 08/29/2018 10:17 PM Care Teams Evp Head [employer] Experience Strategy Relationship Specialty Start Date End Date Babatunde Rees MD PCP - General 08/27/16
--- OUTSIDE RECORDS SUMMARY | 2024-08-06 12:34 | XMS_ITS | Clinical Summary ---
Author Organization [facility] [employer] Address [address] [place] [address] Care Team Providers Care Bundle Cutter Name Role Phone Babatunde Rees MD Primary Care Provider [phone] Source Comments [employer],non-owned Affiliates and Associated Physician Practices is amultiple site organization consisting of ambulatory clinics and hospital sitesin [place], [place], [place] and [place]. This disclosure is being madepursuant to the Care Everywhere program and may not contain all information available regarding this patient. Last updated 18.[facility] Allergies No known active allergies Medications * Be aware that medications may not be up to date on this document. Alwaysverify current medications with the patient. Medication Sig Dispensed Refills Start Date End Date Status amLODIPine (Norvasc) 10 MG tablet once daily 02/07/2022 Active clonazePAM (KlonoPIN) 0.5 MG tablet at bedtime Can take additional 1/2 tab during the day prn 02/07/2022 Active escitalopram (Lexapro) 10 MG tablet at bedtime 01/23/2022 Active lansoprazole (Prevacid) 30 MG capsule at bedtime 02/07/2022 Active metFORMIN ER 24hr (Glucophage XR) 500 MG tablet 4 (four) tablets at bedtime 02/07/2022 Active mirtazapine (Remeron) 45 MG tablet at bedtime 01/05/2022 Active montelukast (Singulair) 10 MG tablet at bedtime 02/07/2022 Active ramipril (Altace) 10 MG capsule 2 (two) capsules once daily 02/07/2022 Active rosuvastatin (Crestor) 20 MG tablet at bedtime 02/07/2022 Active traZODone (Desyrel) 100 MG tablet at bedtime May take 1 in the middle of the night if insomnia 01/05/2022 Active Qvar RediHaler 80 MCG/ACT inhaler 1 (one) puff once daily 08/18/2021 Active albuterol (Proventil;Ventol in) (2.5 MG/3ML) 0.083% nebulizer solution USE 1 VIAL VIA NEBULIZER EVERY 4 TO 6 HOURS NEEDED FOR SHORTNESS OF BREATH OR WHEEZING 04/24/2022 Active carbidopa-levodop a (Sinemet) 25-100 MG tablet TAKE 5 TABLETS AT 5 A.M., 4 TABLETS AT 9 A.M., 4 TABLETS AT 1 P.M., 4 TABLETS AT 5 P.M., AND 5 TABLETS AT 9 P.M. 10/10/2021 Active ALBUTEROL IN Inhale 2 puffs by mouth every 6 hours as needed (SOB) Active Ozempic, 0.25 or 0.5 MG/DOSE, 2 MG/1.5ML pen Inject subcutaneously every 7 days 05/30/2022 Active Polyethylene Glycol 3350 (MIRALAX PO) Take 1 packet by mouth once daily as needed (constipation) Active acetaminophen (Tylenol) 500 MG tablet Take 2 (two) tablets by mouth 3 times daily Maximum allowable Acetaminophen amount = 4 Grams (4000 mg) / 24 hours. Take every three times a day for the first 10 days when home. After 10 days, take as needed. 0 06/19/2022 Active celecoxib (CeleBREX) 200 MG capsule Take 1 (one) capsule by mouth 2 times daily 60 capsule 1 06/19/2022 Active oxyCODONE, immediate release, (Roxicodone) 5 MG tabletIndications :Postoperative pain Take 1 (one) tablet to 2 (two) tablets by mouth every 6 hours as needed for Pain 42 tablet 07/18/2022 Active Active Problems Problem Noted Date Diagnosed Date Primary osteoarthritis of right knee 02/20/2022 Presence of left artificial knee joint Social History Tobacco Use Types Packs/Day Years Used Date Smoking Tobacco: Former Cigarettes Q uit: 2004 Smokeless Tobacco: Never Tobacco Cessation:Counseling Given: Not Answered Alcohol Use Standard Drinks/Week Comments Yes 4 (1 standard drink = 0.6 oz pur e alcohol) wine OASIS D0700: Social Isolation Answer Da te Recorded Frequency of experiencing loneliness or isolatio n Never 07/04/2022 OASIS A1250: Transportation Answer Date Recorded Lack of Transportation (Medical) No 07/04/2022 Lack of Transportation (Non-Medical) No 07/04/2022 Patient Unable or Declines to Respond No 07/04/2022 OASIS B1300: Health Literacy Answer Haris e Recorded Frequency of needing help to read materials from doctor or pharmacy Never 07/04/2022 AUDIT-C Answer Date Recorded Q1: How often do you have a drink containing alc ohol? 2-3 times a week 06/18/2022 Q2: How many drinks containi ng alcohol do you have on a typical day when you are drinking? 1 or 2 06/18/2022 Q3: How often do you have si x or more drinks on one occasion? Never 06/18/2022 Overall Financial Resource Strain (CARDIA) Answe r Date Recorded How hard is it for you to pa y for the very basics like food, housing, medical care, and heating? Not very hard 06/18/2022 [facility] - Occupational Stress Questionnaire Answer Date Recorded Do you feel stress - tense, restless, nervous, or anxious, or unable to sleep at night because your mind is troubled all the time - these days? Not at all 06/18/2022 Hunger Vital Sign Answer Date Recorded Within the past 12 months, y ou worried that your food would run out before you got the money to buy more. Never true 06/18/19 23 Within the past 12 months, t he food you bought just didn't last and you didn't have money to get more. Never true 06/18/2022 PRAPARE - Transportation Answer Date Re corded In the past 12 months, has l ack of transportation kept you from medical appointments or from getting medications? No 05/31 In the past 12 months, has l ack of transportation kept you from meetings, work, or from getting things needed for daily living? No 06/18/2022 Housing Stability Vital Sign Answer Haris e Recorded In the last 12 months, was t here a time when you were not able to pay the mortgage or rent on time? No 06/18/2022 In the last 12 months, how many places have you lived? 1 06/18/2022 In the last 12 months, was t here a time when you did not have a steady place to sleep or slept in a halfway (including now)? No 06/18/2022 Sex and Gender Information Value Date Recorded Sex Assigned at Not on file Gender Identity Not on file Sexual Orientation Not on file Last Filed Vital Signs Vital Sign Reading Time Taken Comments Blood Pressure 128/64 07/04/2022 1:18 PM NETWORK SUPPORT SPECIALIST Pulse 78 07/04/2022 1:18 PM NETWORK SUPPORT SPECIALIST Temperature 36.7 C (98.1 F) 07/04/2022 1:18 PM NETWORK SUPPORT SPECIALIST Respiratory Rate 16 07/04/2022 1:18 PM NETWORK SUPPORT SPECIALIST Oxygen Saturation 97% 07/04/2022 1:18 PM NETWORK SUPPORT SPECIALIST Inhaled Oxygen Concentration - - Weight 113.4 kg (250 lb) 06/21/2022 1:00 PM NETWORK SUPPORT SPECIALIST stated Height 180.3 cm (5' 11 ) 06/21/2022 1:00 PM NETWORK SUPPORT SPECIALIST Body Mass Index 34.87 06/21/2022 1:00 PM NETWORK SUPPORT SPECIALIST Plan of Treatment Health Maintenance Due Date Last Done Comments COLOGUARD (AGES 45-75) - COLON CA SCREENING [address] COLONOGRAPHY - COLON CA SCREENING 1960 FIT - COLON CA SCREENING 1960 FLEX SIG - COLON CA SCREENING 1960 MEDICARE AWV 12 MONTHS 1960 HIV SCREENING 1975 HEPATITIS C SCREENING 05/05/1978 DTAP/TDAP/TD VACCINES (1 - Tdap) 1979 PNEUMOCOCCAL VACCINE 50+ (1 of 1 - PCV) 2010 ZOSTER VACCINE (1 of 2) 2010 COVID-19 VACCINE ( - season) 2023 08/01/2021, 01/20/2021, 07/19/2020, Additional history exists DEPRESSION SCREENING 04/29/2024 INFLUENZA VACCINE (Season Ended) 2024 02/09/2020, 01/27/2018, 01/21/2013 SCREENING FOR DIABETES 06/19/2025 , 06/19/2022, 06/18/2022, Additional history exists COLONOSCOPY - COLON CA SCREENING 03/07/2032 03/07/2022, 01/04/2022 Colorectal Cancer Screening 03/07/2032 Respiratory Syncytial Virus (RSV) Vaccine Pt: or over 60 yrs (1 - 1-dose 75+ series) 2035 HEPATITIS B VACCINE Aged Out No longe r eligible based on patient's age to complete this topic HIB VACCINE Aged Out No longer eligi ble based on patient's age to complete this topic HPV VACCINE Aged Out No longer eligi ble based on patient's age to complete this topic MENINGOCOCCAL (Group B) VACCINE SHARED DECISION-MAKING Aged Out No longer eligible based on patient's age to complete this topic MENINGOCOCCAL GROUPS A/C/Y/W VACCINE Aged Out No longer eligible based on patient's age to complete this topic PNEUMOCOCCAL VACCINE Aged Out No long er eligible based on patient's age to complete this topic Medical Devices Implanted Type Area Trumpet Player Device Identifier Shelf Expiration Date Model / Serial / Lot Cmnt Bone Djo Srg Cblt 40gm Hvisc Strl Implanted:Qty: 2 on 06/18/2022 by Ishmael Hutchins MD at [facility] Right: Knee [employer] 12/21/2023 [id number] / / [id number] Cmpnt Ptlr Std 28mm 3 Pg Kn Ser A Implanted:Qty: 1 on 06/18/2022 by Ishmael Hutchins MD at [facility] Right: Knee [employer] 03/06/2027 [id number] / / [id number] Tray Tib 75mm Kn Cocr I Beam Implanted:Qty: 1 on 06/18/2022 by Ishmael Hutchins MD at [facility] Right: Knee [employer] 01/25/2032 [id number] / / [id number] Cmpnt Fem Kn Rt Cr Cmnt Prm Vngrd Intlk 70 Mm Implanted:Qty: 1 on 06/18/2022 by Ishmael Hutchins MD at [facility] Right: Knee [employer] 05/01/2032 [id number] / / [id number] Vanguard Knee Tibial Bearing 75 Mm X 14 Mm Implanted:Qty: 1 on 06/18/2022 by Ishmael Hutchins MD at [facility] Right: Knee [employer] 09/27/2026 [id number] / / [id number] Procedures Procedure Name Priority Date/Time Associated Diagnosis Comments GLUCOSE - POINT OF CARE Routine 06/19/2022 11:22 AM NETWORK SUPPORT SPECIALIST from Last 3 Months or Most Recently Relevant to Health Maintenance Results * (ABNORMAL) GLUCOSE - POINT OF CARE (06/19/2022 11:22 AM NETWORK SUPPORT SPECIALIST) Glucose WB/POC 199(H) 70 - 106 mg/dL 06/19/2022 4:19 PM NETWORK SUPPORT SPECIALIST [facility] Specimen Type Cap Fingerstick 2022 4:19 PM NETWORK SUPPORT SPECIALIST [facility] Blood BLOOD SPECIMEN / Unknown 06/19/2022 11:22 AM NETWORK SUPPORT SPECIALIST 06/19/2022 4:19 PM NETWORK SUPPORT SPECIALIST Ishmael Hutchins MD LAB - POINT OF CARE ORDERABLES [facility] [id number] [place] [id number] from Last 3 Months or Most Recently Relevant to Health Maintenance Advance Directives Documents on File Type Date Recorded 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
--- OUTSIDE RECORDS SUMMARY | 2024-08-06 12:34 | XMS_ITS | Clinical Summary ---
Author Organization [facility] [place] Address [address] [place] [address] Phone Care Team Providers Care Conventions Reservationist Name Role Phone Babatunde Rees MD Primary Care Provider [phone] Social History Tobacco Use Types Packs/Day Years Used Date Smoking Tobacco: Never Assessed Sex and Gender Information Value Date Recorded Sex Assigned at Not on file Legal Sex Male 11:54 PM CDT Gender Identity Not on file Sexual Orientation Not on file Plan of Treatment Health Maintenance Due Date Last Done Comments DIABETES ANNUAL FOOT EXAM 1978 DIABETES ANNUAL RETINAL EXAM 1978 DIABETES MICROALBUMIN ANNUAL SCREEN 1978 LDL CHOLESTEROL ANNUAL 1978 DTAP/TDAP/TD VACCINES (1 - Tdap) 1979 COLORECTAL SCREENING 2005 Colorectal Cancer Screening 2005 FIT-DNA Q 3 years 2005 FIT/FOBT Q 1 year 2005 Flex Sig/CT Colonography Q 5 years 2005 ZOSTER VACCINE (1 of 2) 2010 DIABETES HBA1C Q 6 MONTHS 11/15/2022 05/18/2022 INFLUENZA VACCINE (#1) 2023 02/09/2020 RSV VACCINE (60+ or ) (1 - 1-dose 75+ series) 2035 Insurance MEDICARE PART A AND B [facility] Care Teams Conventions Reservationist Relationship Specialty Start Date End Date Babatunde Rees MD [address] [place] [address] PCP - General Family Practice 06/28/21
--- OUTSIDE RECORDS SUMMARY | 2024-08-06 12:34 | XMS_ITS | Continuity of Care Document ---
Author Organization [facility] Address [address] [place] [address] Phone Care Team Providers Care Director Blood Bank Name Role Phone Vikash Heaton Unavailable Unavailable Procedures Procedure Date Periodontal Scaling And Root Planing- 1- 3 Teeth Per Quadrant Dental Prophylaxis Adult Dental Panoramic Radiographic Image Intra-Oral - Complete Series Of Radiogra phic Images Periodontal Risk Assessment Oral Cancer Risk Assessment Substance Use Risk Assessment Tobacco Use Diagnostic Casts No Charge Oral/facial 2D photo images Comprehensive Oral Evaluation-New/Est Pt Caries Risk Assess & Doc High Risk Advance Directives Directive Yes / No Effective Date File Name No Information Encounters Encounter Description Practice Location Reason(s) For Visit Diagnoses Date Provider Providers Copied on Encounter [facility], [address], [place], [place], [id number] , tel:[phone] [facility] Chronic gingivitis, plaque inducedEncounter for dental exam and cleaning w abnormal findings 4 Florina Suh. [address], [place], [place], [address]. tel:[phone] Referring Provider: Nai Navas, [address], [place], [address] . tel:[phone] [facility], [address], [place], [place], [address] , tel: [phone] [facility] Encounter for dental exam and cleaning w/o abnormal findingsEncounter for dental exam and cleaning w abnormal findings 3 Florina Suh. [address], [place], [place], [address]. [phone] Referring Provider: Nai Navas, [address], [place], [address] . tel:[phone] [facility], [address], [place], [place], [address] , tel: [phone] Care Guidelines 1 No Information Family History Family Member Type Diagnosis Age At Onset No Information Payers Payer name Insurance type Covered green party ID Authoriza tion(s) No Information Social History Type Description Quantity Date Captured Comments Sex Male Smoking Status No Information Chief Complaint And Reason For Visit No Information Reason For Referral Reason For Referral No Information History Of Present Illness Encounter Date Complaint History Of Prese nt Illness No Information Functional Status Date Functional Assessmen t No Information Instructions Date Instruction Additional Infor mation No Information Assessments Type Assessment Date No Information Patient Care Teams Name Effective Dates (start - stop) Status Members No Information
--- OUTSIDE RECORDS SUMMARY | 2024-08-06 12:34 | XMS_ITS | Clinical Summary ---
Author Organization [facility] Address [address] [place] [address] Care Team Providers Care Claims Administrator Name Role Phone Babatunde Rees MD Primary Care Provider [phone] Social History Tobacco Use Types Packs/Day Years Used Date Smoking Tobacco: Never Assessed Sex and Gender Information Value Date Recorded Sex Assigned at Not on file Legal Sex Male 11:40 AM CDT Gender Identity Not on file Sexual Orientation Not on file Plan of Treatment Health Maintenance Due Date Last Done Comments Colorectal Cancer Screening Colonoscopy (10 Years) 1960 Annual Physical 1963 Hepatitis C 1978 DTaP, Tdap and Td Vaccines ( 1 - Tdap) 1979 Zoster Vaccines (1 of 2) 2010 COVID-19 Vaccine (2023-2 5 season) 2023 RSV Immunization or 60+ Years (1 - 1-dose 75+ series) 2035 Meningococcal B Vaccine Aged Out No l onger eligible based on patient's age to complete this topic Meningococcal Vaccine Aged Out No ubaldo wyatt eligible based on patient's age to complete this topic Pneumococcal Vaccine: Pediat rics (0 to 5 Years) and At-Risk Patients (6 to 64 Years) Aged Out No longer eligible b ased on patient's age to complete this topic RSV Immunizations Under 20 Months Aged Out No longer eligible based on patient's age to complete this topic Insurance MEDICARE [facility] Care Teams Claims Administrator Relationship Specialty Start Date End Date Babatunde Rees MD [address] [place] [address] PCP - General FAMILY PRACTICE 11/01/22
[2024-08-06 12:44] LABS: Influenza A QL RT-PCR Negative (Negative); Influenza B QL RT-PCR Negative (Negative); RSV RNA, RT-PCR Negative (Negative); SARS-CoV-2 RNA PCR Negative (Negative)
== END 2024-08-06 11:57 | disposition home or self-care (01) ==
LOC: ANHLAB 11:58
PROVIDERS: PCP Family Medicine; Visit Provider Nurse Practitioner Family
DX: R06.2 Wheezing (principal); R05.9 Cough, unspecified; R53.83 Other fatigue; R09.81 Nasal congestion; Z20.822 Contact with and (suspected) exposure to COVID-19
CPT/HCPCS: 87637

== ENCOUNTER 2024-08-13 12:38 | Outpatient (CLI) | payer MEDICARE, BC, SELFPAY ==
--- NOTE | ~2024-08-13 | XR_ITS ---
XR chest 2V 08/13/2024 12:57 Indication: Cough and shortness of breath. History of asthma. Procedure: 2 view chest Comparison: 03/27/2024 Findings: Left basilar atelectasis. Stable cardiomediastinal silhouette. No focal pneumonia, edema or pneumothorax. No significant effusion. Impression: 1: Left basilar atelectasis. Reviewed, dictated and finalized at location B. Impression: 1: Left basilar atelectasis.
--- OUTSIDE RECORDS SUMMARY | 2024-08-13 12:53 | XMS_ITS | Continuity of Care Document ---
Author Organization [facility] Address [address] [place] [address] Phone Care Team Providers Care Straight Line Edger Name Role Phone Vikash Heaton Unavailable Unavailable [...] Diagnoses Date Provider Providers Copied on Encounter [facility], [address], [place], [place], [address] , tel:[phone] [facility] Chronic gingivitis, plaque inducedEncounter for dental exam and cleaning w abnormal findings 4 Florina Suh. [address], [place], [place], [address]. tel:[phone] Referring Provider: Nai Navas, [address], [place], [address] . tel:[phone] [facility], [address], [place], [place], [address] , tel: [phone] [facility] Encounter for dental exam and cleaning w/o abnormal findingsEncounter for dental exam and cleaning w abnormal findings 3 Florina Suh. [address], [place], [place], [address]. [phone] Referring Provider: Nai Navas, [address], [place], [address] . tel:[phone] [facility], [address], [place], [place], [address] , tel: [phone] Care Guidelines 1 No Information Family History Family Member Type Diagnosis Age At Onset No Information Payers Payer name Insurance type Covered democrat ID Authoriza tion(s) No Information Social History [...]
--- OUTSIDE RECORDS SUMMARY | 2024-08-13 12:53 | XMS_ITS | Clinical Summary ---
Author Organization [facility] Address [address] [place] [address] Care Team Providers Care Liquid Center Assembler Name Role Phone Babatunde Rees MD Primary Care Provider [phone] Social History Tobacco Use Types Packs/Day Years [...] 5 Years) and At-Risk Patients (6 to 49 Years) Aged Out No longer eligible b ased on patient's age to complete this topic RSV Immunizations Under 20 Months Aged Out No longer eligible based on patient's age to complete this topic Insurance MEDICARE [facility] Care Teams Liquid Center Assembler Relationship Specialty Start Date End Date Babatunde Rees MD [address] [place] [address] PCP - General FAMILY PRACTICE 11/01/22
--- OUTSIDE RECORDS SUMMARY | 2024-08-13 12:53 | XMS_ITS | Continuity of Care Document ---
Author Organization [facility] Address [address] [place] [address] Phone Care Team Providers Care Log Handling Equipment Operator Name Role Phone Marisela De Leon PA-C [...] Providers Copied on Encounter [facility], [address], [place], [address], [place] tel:[phone] [facility] Lateral meniscal tear, right, subsequent encounterMed ial meniscus tear, right, subsequent encounter 7 Moises Antonio. [address] [facility] [address] [address], [place], [place], [address]. tel:[phone] [facility], [address] [address], [place], [address], [place] tel:[phone] [facility] Degenerative tear of posterior horn of medial meniscus of right kneeOther meniscus derangements , other lateral meniscus, right knee 7 Regan Pinto. [address] [facility], [place], [place], [address]. tel:[phone] [facility], [address] [address], [place], [address], [place] tel:[phone] [facility] No Information No Information Referring Provider: Blair Spears, [address] [facility], [place], [address]. tel:[phone] OFFICE CONSULTATION [facility], [address] [address], [place], [address], [place] tel:[phone] [facility] Right knee pain (chief complaint) Pain in right knee 7 Moises Antonio. [address], [place], [place], [address]. tel:[phone] [facility], [address] [address], [place], [address], [place] tel:[phone] [facility] Pain in left wristScaphol unate ligament injury, no instability, left, initial encounter 6 Petrocelli Valentín. [address] [facility] [address], [place], [place], [address]. tel:[phone] Referring Provider: Babatunde White, [address] , [place], [address]. tel:[phone] Family History Family Member Type Diagnosis Age [...]
--- OUTSIDE RECORDS SUMMARY | 2024-08-13 12:53 | XMS_ITS | Referral Summary ---
Author Organization [facility] [address] Address [address] [place] [address] Care Team Providers Care Craps Dealer Name Role Phone Babatunde Rees MD Primary Care Provider Encounters Date Type Department Care Team Description 07/15/2024 3:00 PM CDT Office Visit [facility] Diabetes Endocrine Care at [address] [address] Deloris Chairez, JESSICA Type 2 [...] continuous glucose monitoring device 07/08/2024 Orders Only [facility] Movement Disorders [address] [place] [address] Osiel Ramos MD 07/08/2024 Telephone [facility] Diabetes Endocrine Care at [address] [place] [address] Deloris Chairez, JESSICA from Last [...] 03/29 Assessment & Plan (04/14/2024 12:36 PM PAINT LINE PRODUCTION SUPERVISOR): Reports pain to the left foot and ankle. Ambulatory referral to Dr. gallegos Type 2 diabetes mellitus wit h hyperglycemia, with long-term current use of insulin 04/13/2024 Assessment & Plan (04/13/2024 5:27 PM PAINT LINE PRODUCTION SUPERVISOR): This is a chronic condition which is [...] units daily. Monitor blood sugar continuously with Surviosyle Gurwinder 3 cgm. Encouraged annual eye exam. last dilated eye exam was [facility] in [place] Monofilament foot exam completed. Protective senses -intact [...] 07/31/2023 Assessment & Plan (04/13/2024 5:28 PM PAINT LINE PRODUCTION SUPERVISOR): This is a chronic condition which is [...] (11/22/2020): Added automatically from request for surgery [id number] Palpitations 01/07/2020 Essential hypertension 01/07/2020 Assessment & Plan (04/13/2024 5:29 PM PAINT LINE PRODUCTION SUPERVISOR): This is a chronic condition which is [...] (05/16/2018): Added automatically from request for surgery [id number] Incisional hernia 04/10/2018 Dyskinesia due to Parkinson's disease 08/19/2017 Pain in right knee 05/15/2016 Pain in left wrist 03/28/2016 Chronic pulmonary embolism 05/24/2015 detention current use of anticoagulant therapy 0 05/24/2015 [...] eye exam was [facility] in [place] Monofilament foot exam completed. loss of protective senses. Ambulatory referral to Podiatry Dr. Paige in [place] for diabetic foot care Personally reviewed CMP [...] 06/16/2012 Assessment & Plan (04/13/2024 5:28 PM PAINT LINE PRODUCTION SUPERVISOR): This is a chronic condition which continues [...] - follow up in 6 months with CREDIT REPORT CHECKER and in 1 year with us Visit was started at 3:25 and ended at 4:30 Luis Mulligan MD Movement Neurology Fellow [facility] in [place] Assessment & Plan (04/17/2023 12:13 PM PAINT LINE PRODUCTION SUPERVISOR): He has stage 2 tremor-predominant PD with [...] head) Assessment & Plan (03/30/2022 5:17 PM PAINT LINE PRODUCTION SUPERVISOR): He has stage 2 tremor-predominant PD with [...] daily Assessment & Plan (06/22/2020 6:13 PM PAINT LINE PRODUCTION SUPERVISOR): He has stage 2 PD of 16 [...] constipation. Assessment & Plan (03/20/2019 3:24 PM PAINT LINE PRODUCTION SUPERVISOR): He has mild stage 2 PD with [...] on file Legal Sex Male 12:49 AM PAINT LINE PRODUCTION SUPERVISOR Gender Identity Male 01/07/2021 10:34 AM CDT Sexual Orientation Straight 06/15/2020 11 :14 AM PAINT LINE PRODUCTION SUPERVISOR Last Filed Vital Signs Vital Sign Reading Time Taken Comments Blood Pressure 126/72 07/15/2024 2:58 PM CDT Pulse 70 04/13/2024 12:55 PM PAINT LINE PRODUCTION SUPERVISOR Temperature 36.2 C (97.2 F) 03/07/2023 7:32 AM PAINT LINE PRODUCTION SUPERVISOR Respiratory Rate 17 03/07/2023 8:39 AM PAINT LINE PRODUCTION SUPERVISOR Oxygen Saturation 97% 01/14/2024 12:11 PM CDT Inhaled Oxygen Concentration - - Weight 113 kg (249 lb 3.2 oz) 07/15/2024 2:58 PM CDT Height 180.3 cm (5' 11 ) 07/15/2024 2:58 PM CDT Body Mass Index 34.76 07/15/2024 2:58 PM CDT Plan of Treatment Not on file Medical Devices Implanted Type Area Architectural Draftsperson Device Identifier Shelf Expiration Date Model / Serial / Lot [employer]/C R Bard [id number] Monofilament Soft Lightweight Low Profile Square - Sn/A - [id number] Implanted:Qty: 1 on 08/28/2018 by George Washington MD at [facility] [employer]/C R [id number] 05/26/2023 [id number] / N/A / [id number] Procedures Procedure Name Priority Date/Time Associated Diagnosis Comments POCT HEMOGLOBIN A1C Routine 07/15/2024 3 :02 PM CDT Type 2 diabetes 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, with long-term current use of insulin (HCC) POCT GLUCOSE Routine 07/15/2024 3:02 PM CDT Type 2 diabetes 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, with long-term current use of insulin (HCC) DIABETIC EYE EXAM Routine 05/14/2024 EGFR Routine 11/06/2023 8:28 AM CDT Type 2 diabetes 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, unspecified whether manager long term care insulin use (HCC) LIPID PANEL Routine 11/06/2023 8:28 AM CDT Type 2 diabetes 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, unspecified whether retirement insulin use (HCC) ALBUMIN CREATININE RATIO, URINE Routine 11/06/2023 8:28 AM CDT Type 2 diabetes 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, unspecified whether retirement insulin use (HCC) COLONOSCOPY 03/07/2023 7:46 AM PAINT LINE PRODUCTION SUPERVISOR from Last 3 Months or Most Recently Relevant to Health Maintenance Results * (ABNORMAL) POCT hemoglobin A1c (07/15/2024 3:02 PM CDT) Hemoglobin A1C, POC 8.3 4.0 - 5.6 % Blood 07/15/2024 3:02 PM CDT Deloris Chairez NP POINT OF CARE TEST ORDERABLES F inal Result * POCT glucose (07/15/2024 3:02 PM CDT) Glucose Blood, POC 227 mg/dL Blood 07/15/2024 3:02 PM CDT us Deloris Chairez NP POINT OF CARE TEST ORDERABLES F inal Result * Diabetic Eye Exam (05/14/2024) 05/14/2024 Historical Provider HEALTH MAINTENANCE Final Result * eGFR (11/06/2023 8:28 AM CDT) [...] LAB BLOOD ORDERABLES Final Resu lt KATHIE [id number] [place] [address] * Albumin Creatinine Ratio, Urine (11/06/2023 8:28 [...] 8:28 AM CDT 11/06/2023 2:04 PM CDT us Deloris Chairez CREDIT REPORT CHECKER LAB URINE ORDERABLES Final Resu lt KATHIE [address] [address] [place] [address] * (ABNORMAL) Lipid panel (11/06/2023 8:28 AM [...] on 2017. HDL 35(L) >=40 mg/dL KATHIE Comment: Interpretive Data Ages < [...] revised on 2017. Chol/HDL ratio 6 KATHIE SOLORZANO Blood 11/06/2023 8:28 AM CDT 11/06/2023 2:04 PM CDT Narrative KATHIE SOLORZANO - 11/06/2023 2:26 PM CDT These lab test should be done fasting. This means do not eat or drink for at least 12 hours prior to getting your blood drawn. us Deloris Chairez NP LAB BLOOD ORDERABLES Final Resu lt KATHIE SOLORZANO [id number] Department [place] [employer] [address] * COLONOSCOPY (03/07/2023 7:46 AM PAINT LINE PRODUCTION SUPERVISOR) Anatomical Region Laterality Modality Other Narrative Procedure Note Chano Santos MD - 03/07/2023 7:46 AM CST ENDOSCOPY LAB Patient Name: Pal Hurtado Procedure Date: 03/07/2023 7:46 AM Admit Type: Outpatient Room: [facility] Date of : 1960 Instrument Name: [id number] [...] my nurses in the GI office at [phone] ([phone]) for your final pathology results in7 days. [...] Recently Relevant to Health Maintenance Insurance MEDICARE [facility] MEDICARE [facility] TRADITIONAL [facility] TRADITIONAL MEDICARE Advance Directives For more information, please contact: [phone] * Full Code (Latest Code Status on File) Date Activated Date Inactivated Comments 03/07/2023 7:26 AM 03/07/2023 1:13 PM * Full Code Date Activated Date Inactivated Comments 03/07/2022 6:48 AM 03/07/2022 1:17 PM * Full Code Date Activated Date Inactivated Comments 10/17/2020 8:10 AM 10/17/2020 2:59 PM * Full Code Date Activated Date Inactivated Comments 08/28/2018 9:13 PM 08/29/2018 10:17 PM Care Teams Craps Dealer Relationship Specialty Start Date End Date Babatunde Rees MD PCP - General 08/27/16
--- OUTSIDE RECORDS SUMMARY | 2024-08-13 12:53 | XMS_ITS | Clinical Summary ---
Author Organization [facility] [address] Address [address] [place] [address] Care Team Providers Care Yard Goods Salesperson Name Role Phone Babatunde Rees MD Primary Care Provider [phone] Allergies No known active allergies Medications ONETOUCH [...] 03/29 Assessment & Plan (04/14/2024 12:36 PM CASING TRIMMER): Reports pain to the left foot and ankle. Ambulatory referral to Dr. gallegos Type 2 diabetes mellitus wit h hyperglycemia, with long-term current use of insulin 04/13/2024 Assessment & Plan (04/13/2024 5:27 PM CASING TRIMMER): This is a chronic condition which is [...] eye exam was [facility] in [place] Monofilament foot exam completed. Protective senses -intact [...] 07/31/2023 Assessment & Plan (04/13/2024 5:28 PM CASING TRIMMER): This is a chronic condition which is [...] (11/22/2020): Added automatically from request for surgery [id number] Palpitations 01/07/2020 Essential hypertension 01/07/2020 Assessment & Plan (04/13/2024 5:29 PM CASING TRIMMER): This is a chronic condition which is [...] (05/16/2018): Added automatically from request for surgery [id number] Incisional hernia 04/10/2018 Dyskinesia due to Parkinson's disease 08/19/2017 Pain in right knee 05/15/2016 Pain in left wrist 03/28/2016 Chronic pulmonary embolism 05/24/2015 long term current use of anticoagulant therapy 0 05/24/2015 [...] eye exam was [facility] in [place] Monofilament foot exam completed. loss of protective senses. Ambulatory referral to Podiatry Dr. Paige in [place] for diabetic foot care Personally reviewed CMP [...] 06/16/2012 Assessment & Plan (04/13/2024 5:28 PM CASING TRIMMER): This is a chronic condition which continues [...] - follow up in 6 months with BEHAVIORAL SCIENCES INSTRUCTOR and in 1 year with us Visit was started at 3:25 and ended at 4:30 Luis Mulligan MD Movement Neurology Fellow [facility] in [place] Assessment & Plan (04/17/2023 12:13 PM CASING TRIMMER): He has stage 2 tremor-predominant PD with [...] head) Assessment & Plan (03/30/2022 5:17 PM CASING TRIMMER): He has stage 2 tremor-predominant PD with [...] daily Assessment & Plan (06/22/2020 6:13 PM CASING TRIMMER): He has stage 2 PD of 16 [...] so I gave him info on [employer] channel exercises. He needs to add stretching [...] constipation. Assessment & Plan (03/20/2019 3:24 PM CASING TRIMMER): He has mild stage 2 PD with [...] Description 07/15/2024 3:00 PM CDT Office Visit [facility] Diabetes Endocrine Care at [address] [address] Deloris Chairez NP Type 2 [...] continuous glucose monitoring device 07/08/2024 Orders Only [facility] Movement Disorders [address] [place] [phone] Osiel Ramos MD 07/08/2024 Telephone [facility] Medical [facility] Diabetes Endocrine Care at [address] [address] Deloris Chairez NP from Last [...] on file Legal Sex Male 12:49 AM CASING TRIMMER Gender Identity Male 01/07/2021 10:34 AM CDT Sexual Orientation Straight 06/15/2020 11 :14 AM CASING TRIMMER Obstetrics History Last Filed Vital Signs Vital Sign Reading Time Taken Comments Blood Pressure 126/72 07/15/2024 2:58 PM CDT Pulse 70 04/13/2024 12:55 PM CASING TRIMMER Temperature 36.2 C (97.2 F) 03/07/2023 7:32 AM CASING TRIMMER Respiratory Rate 17 03/07/2023 8:39 AM CASING TRIMMER Oxygen Saturation 97% 01/14/2024 12:11 PM CDT Inhaled Oxygen Concentration - - Weight 113 kg (249 lb 3.2 oz) 07/15/2024 2:58 PM CDT Height 180.3 cm (5' 11 ) 07/15/2024 2:58 PM CDT Body Mass Index 34.76 07/15/2024 2:58 PM CDT Plan of Treatment Health Maintenance Due Date Last Done Comments Depression Screening 1960 Hepatitis C Screening 1960 Prostate Cancer Screening-PSA 1960 DTaP/Tdap/Td Vaccine (1 - Tdap) 1971 [...] exists Foot Exam 04/13/2025 04/13/2024, 10/28, 07/31/2023 Dilated Eye Exam 05/14/2026 05/14/2024 Colon Cancer Screening-Colonoscopy 03/07/2033 03/07/2023, 03/07/2022, 01/04/2022, [...] history exists Medical Devices Implanted Type Area Electronics Hardware Design Engineer Device Identifier Shelf Expiration Date Model / Serial / Lot [employer]/C R Bard [id number] Monofilament Soft Lightweight Low Profile Square - Sn/A - [id number] Implanted:Qty: 1 on 08/28/2018 by George Washington MD at [facility] [employer]/C R Bard [id number] 05/26/2023 [id number] / N/A / [id number] Procedures Procedure Name Priority Date/Time Associated Diagnosis [...] diabetes 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, unspecified whether manager terminal insulin use (HCC) LIPID PANEL Routine 11/06/2023 8:28 AM CDT Type 2 diabetes 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, unspecified whether group home insulin use (HCC) ALBUMIN CREATININE RATIO, URINE Routine 11/06/2023 8:28 AM CDT Type 2 diabetes 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, unspecified whether group home insulin use (HCC) COLONOSCOPY 03/07/2023 7:46 AM CASING TRIMMER from Last 3 Months or Most Recently Relevant to Health Maintenance Results * (ABNORMAL) POCT hemoglobin A1c (07/15/2024 3:02 PM CDT) Hemoglobin A1C, POC 8.3 4.0 - 5.6 % Blood 07/15/2024 3:02 PM CDT Deloris Chairez NP POINT OF CARE TEST ORDERABLES F inal Result * POCT glucose (07/15/2024 3:02 PM CDT) Glucose Blood, POC 227 mg/dL Blood 07/15/2024 3:02 PM CDT Deloris Chairez [...] CDT 11/06/2023 2:07 PM CDT Deloris Chairez BEHAVIORAL SCIENCES INSTRUCTOR LAB BLOOD ORDERABLES Final Resu lt Performing Organization Address [facility] de Phone Number KATHIE [address] [place] [address] * Albumin Creatinine Ratio, Urine (11/06/2023 8:28 AM CDT) Albumin Ur 17.4 mg/L Comment: Interpretive Data No reference range established. Current interpretive data was last revised 2018. Creatinine Ur 171.5 mg/dL [facility] Comment: Interpretive Data No reference range established. Current interpretive data was last revised 2018. Albumin Creatinine Ratio, Ur 10 1 - 29 mg/g [facility] Urine 11/06/2023 8:28 AM CDT 11/06/2023 2:04 PM CDT Deloris Chairez NP LAB URINE ORDERABLES Final Resu lt Performing Organization Address [facility] de Phone Number KATHIE [address] [place] [address] * (ABNORMAL) Lipid panel (11/06/2023 8:28 AM [...] Pediatrics 2011;128:S213 2. NCEP Expert Panel. Circulation 2003;110:227 Current Interpretive Data was last revised on [...] Pediatrics 2011;128:S213 2. NCEP Expert Panel. Circulation 2003;110:227 Current Interpretive Data was last revised on [...] Pediatrics 2011;128:S213 2. NCEP Expert Panel. Circulation 2003;110:227 Current Interpretive Data was last revised on 2017. LDL, calculated See Comment <=129 mg/dL KATHIE Comment: Unable to calculate due to elevated [...] Pediatrics 2011;128:S213 2. NCEP Expert Panel. Circulation 2003;110:227 Current Interpretive Data was last revised on 2017. Non-HDL Cholesterol 169 mg/dL KATHIE Comment: Interpretive Data Ages < [...] last revised on 2017. Chol/HDL ratio 6 [facility] Blood 11/06/2023 8:28 AM CDT 11/06/2023 2:04 PM CDT Narrative KATHIE - 11/06/2023 2:26 PM CDT These lab test should be done fasting. This means do not eat or drink for at least 12 hours prior to getting your blood drawn. us Deloris Chairez NP LAB BLOOD ORDERABLES Final Resu lt [facility] [address] [address] [facility] [place] [id number] * COLONOSCOPY (03/07/2023 7:46 AM CASING TRIMMER) Anatomical Region Laterality Modality Other Narrative Procedure Note Chano Santos MD - 03/07/2023 7:46 AM CST ENDOSCOPY LAB Patient Name: Pal Hurtado Procedure Date: 03/07/2023 7:46 AM Admit Type: Outpatient Room: Endo 8 Date of : 1960 Instrument Name: -[id number] Gender: Male Note Status: Finalized Procedure: Colonoscopy [...] my nurses in the GI office at [phone] ([phone]) for your final pathology results in7 days. [...] Recently Relevant to Health Maintenance Insurance MEDICARE [facility] TRADITIONAL MEDICARE [facility] TRADITIONAL [id number] [place] [address] TRADITIONAL Member Subscriber Plan / Payer ( fective 2016-Present) Name:Pal Hurtado Relation to Subscriber:Self Name:Pal Hurtado Payer ID:[id number] (NAIC) Type:BC ALLIANCE Address: [address] [place] [id number] MEDICARE Advance Directives For more information, please contact: [phone] * Full Code (Latest Code Status on File) Date Activated Date Inactivated Comments 03/07/2023 7:26 AM 03/07/2023 1:13 PM * Full Code Date Activated Date Inactivated Comments 03/07/2022 6:48 AM 03/07/2022 1:17 PM * Full Code Date Activated Date Inactivated Comments 10/17/2020 8:10 AM 10/17/2020 2:59 PM * Full Code Date Activated Date Inactivated Comments 08/28/2018 9:13 PM 08/29/2018 10:17 PM Care Teams Yard Goods Salesperson Relationship Specialty Start Date End Date Babatunde Rees MD PCP - General 08/27/16
--- OUTSIDE RECORDS SUMMARY | 2024-08-13 12:53 | XMS_ITS | Clinical Summary ---
Author Organization [facility] [employer] Address [address] [place] [address] Care Team Providers Care Drafting Instructor Name Role Phone Babatunde Rees MD Primary Care Provider [phone] Source Comments [facility],non-owned Affiliates and Associated Physician Practices is amultiple site organization consisting of ambulatory clinics and hospital sitesin [place], [place], [place] and [place]. This disclosure is being madepursuant to the Care Everywhere program and may not contain all information available regarding this patient. Last updated 18.[facility] Allergies No known active allergies Medications * Be aware that medications may not be up to date on this document. Alwaysverify current medications with the patient. amLODIPine (Norvasc) 10 MG tablet once daily 2 Active clonazePAM (KlonoPIN) 0.5 MG tablet at bedtime Can take additional 1/2 tab during the day prn 2 Active escitalopram (Lexapro) 10 MG tablet at bedtime 2 Active lansoprazole (Prevacid) 30 MG capsule at bedtime 2 Active metFORMIN ER 24hr (Glucophage XR) 500 MG tablet 4 (four) tablets at bedtime 2 Active mirtazapine (Remeron) 45 MG tablet at bedtime 2 Active montelukast (Singulair) 10 MG tablet at bedtime 2 Active ramipril (Altace) 10 MG capsule 2 (two) capsules once daily 2 Active rosuvastatin (Crestor) 20 MG tablet at bedtime 2 Active traZODone (Desyrel) 100 MG tablet at bedtime May take 1 in the middle of the night if insomnia 2 Active Qvar RediHaler 80 MCG/ACT inhaler 1 (one) puff once daily 2 Active albuterol (Proventil;Arnav tolin) (2.5 MG/3ML) 0.083% nebulizer solution USE 1 VIAL VIA NEBULIZER EVERY 4 TO 6 HOURS NEEDED FOR SHORTNESS OF BREATH OR WHEEZING 2 Active carbidopa-levo dopa (Sinemet) 25-100 MG tablet TAKE 5 TABLETS AT 5 A.M., 4 TABLETS AT 9 A.M., 4 TABLETS AT 1 P.M., 4 TABLETS AT 5 P.M., AND 5 TABLETS AT 9 P.M. 2 Active ALBUTEROL IN Inhale 2 puffs by mouth every 6 hours as needed (SOB) Active Ozempic, 0.25 or 0.5 MG/DOSE, 2 MG/1.5ML pen Inject subcutaneously every 7 days 3 Active Polyethylene Glycol 3350 (MIRALAX PO) Take 1 packet by mouth once daily as needed (constipation) Active acetaminophen (Tylenol) 500 MG tablet Take 2 (two) tablets by mouth 3 times daily Maximum allowable Acetaminophen amount = 4 Grams (4000 mg) / 24 hours. Take every three times a day for the first 10 days when home. After 10 days, take as needed. 0 3 Active celecoxib (CeleBREX) 200 MG capsule Take 1 (one) capsule by mouth 2 times daily 60 capsule 1 3 Active oxyCODONE, immediate release, (Roxicodone) 5 MG tabletIndicati ons:Postoperat michael pain Take 1 (one) tablet to 2 (two) tablets by mouth every 6 hours as needed for Pain 42 tablet 3 Active Active Problems Problem Noted Date Diagnosed Date Primary osteoarthritis of right knee 02/20/2022 Presence of left artificial knee joint 2 Social History Tobacco Use Types Packs/Day Years [...] care, and heating? Not very hard 06/18/2022 [facility] [place] [facility] Occupat ional Health - Occupational Stress [...] place to sleep or slept in a alf (including now)? 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 Gender Identity Not on file Sexual Orientation Not on file Last Filed Vital Signs Vital Sign Reading Time Taken Comments Blood Pressure 128/64 07/04/2022 1:18 PM ENVELOPE SEALER OPERATOR Pulse 78 07/04/2022 1:18 PM ENVELOPE SEALER OPERATOR Temperature 36.7 C (98.1 F) 07/04/2022 1:18 PM ENVELOPE SEALER OPERATOR Respiratory Rate 16 07/04/2022 1:18 PM ENVELOPE SEALER OPERATOR Oxygen Saturation 97% 07/04/2022 1:18 PM ENVELOPE SEALER OPERATOR Inhaled Oxygen Concentration - - Weight 113.4 kg (250 lb) 06/21/2022 1:00 PM ENVELOPE SEALER OPERATOR stated Height 180.3 cm (5' 11 ) 06/21/2022 1:00 PM ENVELOPE SEALER OPERATOR Body Mass Index 34.87 06/21/2022 1:00 PM ENVELOPE SEALER OPERATOR Plan of Treatment Health Maintenance Due Date [...] this topic Medical Devices Implanted Type Area Business Intelligence Manager Device Identifier Shelf Expiration Date Model / Serial / Lot Cmnt Bone Djo Srg Cblt 40gm Hvisc Strl Implanted:Qty: 2 on 06/18/2022 by Ishmael Hutchins MD at [facility] Right: Knee [employer] 12/21/2023 [id number] / / [id number] Cmpnt Ptlr Std 28mm 3 Pg Kn Ser A Implanted:Qty: 1 on 06/18/2022 by Ishmael Hutchins MD at [facility] Right: Knee [employer] 03/06/2027 [id number] / / [id number] Tray Tib 75mm Kn Cocr I Beam Implanted:Qty: 1 on 06/18/2022 by Ishmael Hutchins MD at [facility] Right: Knee [employer] 01/25/2032 [id number] / / [id number] Cmpnt Fem Kn Rt Cr Cmnt Prm Vngrd Intlk 70 Mm Implanted:Qty: 1 on 06/18/2022 by Ishmael Hutchins MD at [facility] Right: Knee [employer] 05/01/2032 [id number] / / [id number] Vanguard Knee Tibial Bearing 75 Mm X 14 Mm Implanted:Qty: 1 on 06/18/2022 by Ishmael Hutchins MD at [facility] Right: Knee [employer] 09/27/2026 [id number] / / [id number] Procedures Procedure Name Priority Date/Time Associated Diagnosis Comments GLUCOSE - POINT OF CARE Routine 06/19/2022 11:22 AM ENVELOPE SEALER OPERATOR from Last 3 Months or Most Recently Relevant to Health Maintenance Results * (ABNORMAL) GLUCOSE - POINT OF CARE (06/19/2022 11:22 AM ENVELOPE SEALER OPERATOR) Glucose WB/POC 199(H) 70 - 106 mg/dL 06/19/2022 4:19 PM ENVELOPE SEALER OPERATOR [facility] Specimen Type Cap Fingerstick 2022 4:19 PM ENVELOPE SEALER OPERATOR [facility] Blood BLOOD SPECIMEN / Unknown 06/19/2022 11:22 AM ENVELOPE SEALER OPERATOR 06/19/2022 4:19 PM ENVELOPE SEALER OPERATOR Ishmael Hutchins MD LAB - POINT OF CARE ORDERABLE S Final Result [facility] [address] [place] [address] from Last 3 Months or Most Recently Relevant to Health Maintenance Insurance MEDICARE [facility] MEDICARE [facility] Advance Directives Documents on File Type Date Recorded 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
--- OUTSIDE RECORDS SUMMARY | 2024-08-13 12:54 | XMS_ITS | Clinical Summary ---
Author Organization [facility] nich[facility] [place] Address [address] [place] [address] Phone Care Team Providers Care Hot Plate Plywood Press Feeder Name Role Phone Babatunde Rees MD Primary Care Provider [phone] Social History Tobacco Use Types Packs/Day Years [...] 2035 Insurance MEDICARE PART A AND B [facility] Care Teams Hot Plate Plywood Press Feeder Relationship Specialty Start Date End Date Babatunde Rees MD [address] [place] [address] PCP - General Family Practice 06/28/21
== END 2024-08-13 12:39 | disposition home or self-care (01) ==
PROVIDERS: PCP Family Medicine; Visit Provider Nurse Practitioner Family
DX: R05.9 Cough, unspecified (principal); R91.8 Other nonspecific abnormal finding of lung field
CPT/HCPCS: 71046

== ENCOUNTER 2024-09-18 11:36 | Outpatient (CLI) | payer MEDICARE, BC, SELFPAY ==
--- NOTE | ~2024-09-18 | XR_ITS ---
EXAMINATION: XR chest 2V 09/18/2024 11:53 INDICATION: Dyspnea PROCEDURE: 2 view chest COMPARISON: No prior studies for comparison. FINDINGS: The lungs are clear. The cardiomediastinal silhouette is within normal limits. There are no pleural effusions. There is no pneumothorax suspected. IMPRESSION: 1: NO ACUTE CARDIOPULMONARY DISEASE. Reviewed, dictated and finalized at location B.
--- OUTSIDE RECORDS SUMMARY | 2024-09-18 11:42 | XMS_ITS | Data Portability ---
Author Organization [place] [facility] [employer], Main Office Address [address] [place] [address] Care Team Providers Care Supervisor [employer] Name Role Phone MILAN FRANKLIN Primary Care Provider [phone] MILAN FRANKLIN Referring Provider Assessment Encounter Date Assessment Date Assessment LastModified by Organization Details LastModified Time 09/17/2023 09/17/2023 This note is dictated and transcribed by [employer]. Inclusion Intern variances may occur. Despite proofreading, typographical errors may occur. Occasional wrong-word or 'tifee-t-lzyi' substitutions may have occurred due to the inherent limitations of voice recording. Read the chart carefully and recognize, using context, where substitutions have occurred. elly Not available 09/17/2023 15:57:33 12/31/2023 12/31/2023 This note is dictated and transcribed by [employer]. Inclusion Intern variances may occur. Despite proofreading, typographical errors may occur. Occasional wrong-word or 'eemts-z-hcxu' substitutions may have occurred due to the inherent limitations of voice recording. Read the chart carefully and recognize, using context, where substitutions have occurred. [email or web address] Not available 12/31/2023 12:49:38 Plan of Treatment Reminders Order Date Submit Date Provider Last Modified By Organization Details Last Modified Time Details Appointments None record ed. Lab None record ed. Referral None record ed. Procedures None record ed. Surgeries None record ed. Imaging None record ed. Medication Orders None record ed. Patient TargetsNo targets recorded. Patient Instructions Encounter Date Encounter Id Patient Instructions Last Modified By Organization Details Last Modified Time 09/17/2023 [id number] diabetes foot health: care instructions elly Not available 09/17/2023 15:59:07 diabetic neuropathy education [email or web address] Not available 09/17/2023 15:59:07 Learning About Carbohydrate (Carb) Counting and Eating Out When You Have Diabetes [email or web address] Not available 09/17/2023 15:59:07 Reason for Referral None Reported. Problems Name Problem SNOMED Code Status Onset Date Resolution Date Notes Provider Name and Address Organization Details Recorded Time Anxiety 80841862 Active 2023 Karmen anne [facility] 15:07:58 Arthritis 8051045 Active 2023 Karmen Cabrera null, [facility] 4 15:08:05 Asthma 640433356 Active 2023 Karmen anne, [facility] 4 15:08:13 Bowel problem 887071844 Active 2023 Karmen anne, [facility] 15:08:36 Bronchitis 95986943 Active 2023 Karmen anne, [facility] 15:08:50 Cardiac arrhythmia 081984376 Active 2023 Karmen anne, [facility] 4 15:09:02 Depressive disorder 95173428 Active 2023 Karmen anne, [facility] 4 15:09:10 Diabetes mellitus 32650097 Active 2023 Karmen anne [facility] 4 15:09:16 Heartburn 78829457 Active 2023 Karmen Cabrera null, [facility] 4 15:09:23 Hyperchole sterolemia 93885516 Active 2023 Karmen Cabrera null, [facility] 4 15:09:40 Hypertensi ve disorder 95521942 Active 2023 Karmen Cabrera null, [facility] 4 15:09:48 Obesity 828401459 Active 2023 Karmen anne, [facility] 4 15:09:56 Pneumonia 543978645 Active 2023 aKrmen anne, [facility] 4 15:10:04 Sleep disorder 94136040 Active 2023 Karmen anne, [facility] 4 15:10:12 Dystrophia unguium 01643654 Active 2023 Brian Ibarra DPM [address], [address], [place], [address] , [facility] [employer] [facility] 4 15:57:30 Pain of left ankle joint 8116898060226 9103 Active 2023 Brian Ibarra DPM [address], [address], [place], [address] , [facility] [employer] [facility] 4 12:49:48 Notes:BACK/NECK PROBLEMS, BL OOD CLOTS, HERNIATED DISC, URINARY/BLADDER/KIDNEY PROBLEMS, USE OF BLOOD THINNERS Problem Notes None recorded. Procedures Surgical History Date Name Laterality Status Provider Name and Address Organization Details Recorded Time 12/31/19 24 Joint Injection-Podia try 6217 completed Brian Ibarra DPM [address], [address], [place], [address], [facility] [employer] [facility] 12/31/2023 12:48:52 09/17/19 24 Nail Debridement completed Brian Ibarra DPM [address], [place], [address], [facility] [employer] [facility] 09/17/2023 15:57:19 total knee replacement completed Karmen Cabrera [facility] 09/17/2023 15:14:19 total knee replacement completed Karmen Cabrera [facility] 09/17/2023 15:15:41 Knee Replacement completed Karmen Dodd [facility] 09/17/2023 15:15:17 Imaging Results None recorded. Procedure Notes None recorded. Medical Equipment None Reported. Allergies No known drug allergies Medications Name Sig Start Date Stop Date Status Note LastModified by Organization Details LastModified Time prednisone 10 mg tablet TAKE 3 TABLETS BY MOUTH DAILY 09/16 completed Not Available Not Available Not Available albuterol sulfate 2.5 mg/3 mL (0.083 %) solution for nebulizatio n Inhale 3 mL 3 times a day by nebulizat ion route. active Not Available Not Available No t Available azithromyci n 250 mg tablet TAKE 2 TABLETS BY MOUTH TODAY, THEN TAKE 1 TABLET DAILY FOR 4 DAYS 09/16 completed Not Available Not Available Not Available clonazepam 0.5 mg tablet TAKE 1 TAB BY MOUTH NIGHTLY AND CAN TAKE AN ADDITIONA L 1/2 TAB DURING THE DAY NEEDED active Not Available Not Available No t Available amlodipine 5 mg tablet TAKE 1 TABLET BY MOUTH DAILY. active Not Available Not Available No t Available triamcinolo ne acetonide 0.1 % topical cream APPLY TOPICALLY TWICE A DAY active Not Available Not Available No t Available amoxicillin 500 mg tablet TAKE ALL 4 TABLETS BY MOUTH 30- 60 MIN PRIOR TO DENTAL VISIT OR UP TO 2 HOURS AFTER APPOINTME NT active Not Available Not Available No t Available entacapone 200 mg tablet TAKE 1/2 TABLET BY MOUTH AT 5AM, 9AM, 1PM AND 5PM X1 WEEK THEN INCREASE TO 1 TABLET PER DOSE active Not Available Not Available No t Available trazodone 100 mg tablet TAKE 1 TABLET AT BEDTIME AND MAY TAKE 1 TABLET IN THE MIDDLE OF THE NIGHT IF INSOMNIA PERSISTS active Not Available Not Available No t Available amlodipine 10 mg tablet TAKE 1 TABLET BY MOUTH EVERY DAY 09/16 completed Not Available Not Available Not Available lansoprazol e 30 mg capsule,del ayed release TAKE 1 CAPSULE BY MOUTH EVERY DAY active Not Available Not Available No t Available magnesium citrate oral solution Take by oral route. active Not Available Not Available No t Available mirtazapine 45 mg tablet TAKE 1 TABLE BY MOUTH NIGHTLY active Not Available Not Available No t Available diclofenac sodium 75 mg tablet,miladys yed release TAKE 1 TABLET BY MOUTH TWICE DAILY NEEDED FOR PAIN active Not Available Not Available No t Available montelukast 10 mg tablet TAKE 1 TABLET BY MOUTH EVERY DAY active Not Available Not Available No t Available carbidopa 25 mg-levodopa 100 mg tablet TAKE 4 TABS AT 5AM, 3 TABS AT 9AM, 3 TABS AT 1PM, 3 TABS AT 5PM, AND 4 TABS AT 9PM. active Not Available Not Available No t Available cefdinir 300 mg capsule TAKE 1 CAPSULE BY MOUTH EVERY 12 HOURS FOR 10 DAYS 09/16 completed Not Available Not Available Not Available fluticasone propionate 50 mcg/actuati on nasal spray,suspe nsion ADMINISTE R 1 SPRAY INTO EACH NOSTRIL TWICE A DAY. 09/16 completed Not Available Not Available Not Available metformin ER 500 mg tablet,exte nded release 24 hr TAKE 4 TABLET BY MOUTH EVERY EVENING active Not Available Not Available No t Available ramipril 10 mg capsule TAKE 2 CAPSULES BY MOUTH EVERY DAY active Not Available Not Available No t Available escitalopra m 10 mg tablet TAKE 1 TABLET BY MOUTH EVERY DAY active Not Available Not Available No t Available rosuvastati n 20 mg tablet TAKE 1 TABLET DAILY active Not Available Not Available No t Available rosuvastati n 40 mg tablet TAKE 1 TABLET BY MOUTH DAILY active Not Available Not Available No t Available Pulmicort Flexhaler 180 mcg/actuati on breath activated 1 PUFF INHALED TWICE A DAY RINSE MOUTH AND SPIT AFTER EACH USE 09/16 completed Not Available Not Available Not Available GaviLyte-G 236 gram-22.74 gram-6.74 gram-5.86 gram oral solution TAKE DIRECTED 09/16 completed Not Available Not Available Not Available Linzess 72 mcg capsule TAKE 1 CAPSULE BY MOUTH EVERY DAY active Not Available Not Available No t Available Rybelsus 7 mg tablet TAKE 1 TABLET BY MOUTH EVERY DAY IN THE MORNING ON AN EMPTY STOMACH 30 MINS BEFORE OTHER MEDS/EATI NG 09/16 completed Not Available Not Available Not Available Ozempic 1 mg/dose (4 mg/3 mL) subcutaneou s pen injector INJECT 1 MG UNDER THE SKIN EVERY 7 DAYS E11.65 active Not Available Not Available No t Available Ozempic 2 mg/dose (8 mg/3 mL) subcutaneou s pen injector INJECT 2 MG SUBCUTANE OUSLY ONCE WEEKLY 09/16 completed Not Available Not Available Not Available Mounjaro 7.5 mg/0.5 mL subcutaneou s pen injector INJECT 7.5 MG (0.5 ML) SUBCUTANE OUSLY WEEKLY 09/16 completed Not Available Not Available Not Available Mounjaro 5 mg/0.5 mL subcutaneou s pen injector INJECT THE CONTENTS OF 1 PEN UNDER THE SKIN ONCE WEEKLY 09/16 completed Not Available Not Available Not Available Mounjaro 10 mg/0.5 mL subcutaneou s pen injector INJECT 10MG INTO THE SKIN ONCE WEEKLY 09/16 completed Not Available Not Available Not Available Ozempic 0.25 mg or 0.5 mg (2 mg/3 mL) subcutaneou s pen injector INJECT 0.5 MG UNDER THE SKIN EVERY 7 DAYS active Not Available Not Available No t Available Vitals Date Recorded Body height Body mass index (BMI) Body weight Provider Name and Address Organization Details Last Updated DateTime 09/17/2023 180.34 cm 34.3 kg/m2 188663.72 g Karmen Cabrera [email or web address] [facility] [employer] 09/17/2023 14:54:32 Date Recorded Heart rate Respiratory rate Oxygen saturation Oxygen saturation in Arterial blood by Pulse oximetry Systolic blood pressure Diastolic blood pressure Provider Name and Address Organization Details Last Updated DateTime 4 79 /min 14 /min 98 % 98 % 138 mm[Hg] 76 mm[Hg] Michelle Price [email or web address] [facility] [employer] 4 15:00:56 Date Recorded Body height Body mass index (BMI) Body weight Heart rate Oxygen saturation Oxygen saturation in Arterial blood by Pulse oximetry Systolic blood pressure Diastolic blood pressure Provider Name and Address Organization Details Last Updated DateTime 4 180.34 cm 34.3 kg/m2 208373. 72 g 76 /min 99 % 99 % 136 mm[Hg] 74 mm[Hg] ESTRADA Saldana [email or web address] [facility] [employer] 4 11:48:57 Social History Question Answer Notes LastModified by Organizat ion Details LastModified Time Tobacco Smoking Status Former Smoker Karmen anne [email or web address] [facility] [employer] 09/17/2023 15:12:42 When Did You Quit Smoking? 16+yearssinc elastcigaret te Information not available 09/17/2023 How Many Years Have You Smoked Tobacco? 20 Information not available 09/17/2023 Sex: Unknown Functional Status Question Answer Note LastModified by Organizat ion Details LastModified Time What is your level of alcohol consumption? Occasional Information not available 09/17/2023 Mental Status None recorded. Family History Relationship Description Onset Age of this Age Resolved Age Notes LastModified by Organization Details LastModified Time Maternal Grandfather Diabetes mellitus Not available 2023 15:11:12 Paternal Grandfather Cerebrovascu lar accident Not available 15:11:23 Father Hypertensive disorder Not available 2023 15:11:53 Father Family history of malignant neoplasm Not available 2023 15:12:23 Brother Hypertensive disorder Not available 2023 15:11:53 Brother Heart disease Not available 2023 15:12:08 Unspecified Relation Hypertensive disorder GRANDF ATHER Not available 09/17/2023 15:11:53 Sister Family history of malignant neoplasm Not available 2023 15:12:23 Medical History Condition Response ARTHRITIS Y USE OF BLOOD THINNERS Y DIABETES, TYPE Y HEARTBURN / REFLUX Y HYPERTENSION Y HIGH CHOLESTEROL / HYPERLIPIDEMIA Y CARDIAC ARRHYTHMIA Y ANXIETY DISORDER Y OBESITY Y BLOOD CLOTS Y URINARY/BLADDER/KIDNEY PROBLEMS Y BOWEL PROBLEMS Y BACK / NECK PROBLEMS Y DEPRESSION (INCLUDING POST ) Y Past Encounters Encounter ID Performer Location Encounter Start Date Encounter Closed Date Diagnosis/Indication Diagnosis SNOMED-CT Code Diagnosis ICD10 Code Diagnosis Note [id number] Brian Ibarra DPM [facility] [place] [address] [facility] [address] [place] [address] 09/17/2023 14:47:30 09/17/2023 16:02:15 Diabetes mellitus 68156761 E11.9 continue diabetic control per PCP recommenda tionsCheck feet daily for wounds infectionC ontinue supportive shoe gearFollow -up 3 months Obesity 839715453 E66.9 recommend weight loss Dystrophia unguium 50324 009 L60.3 Nails 1 through 10 were debrided with sharp mechanical debridemen t without incident. Nails were debrided and greater than 50% length and thickness where needed. [id number] Brian Ibarra DPM [facility] [place] [address] [facility] [address] [place] [address] 12/31/2023 11:47:13 01/20/2024 10:19:40 Pain of left ankle joint 5308988778 2651859 M25.572 injection todayrom exercisesf ollow up as needed Health Concerns Section Related Observation LastModified by Organization Detai ls LastModified Time None Recorded Concern Status LastModified by Organization Details LastModified Time None Recorded Advance Directives Directive None Recorded Payers Encounter Date Sequence Insurance Name Policy Number Policy Schultz Covered Member ID Schultz Member ID Guarantor Name 09/17/2023 1 [place] Valentín A Hurtado [id number] Valentín Hurtado 09/17/2023 2 [place] [id number] 1 Valentín Hurtado [id number] Valentín Hurtado 12/31/2023 1 [place] Valent[place] A Hurtado [id number] Valentín Hurtado 12/31/2023 2 [place] [id number] 1 Valentín Hurtado [id number] Valentín Hurtado Notes Date Note Type Note Provider Name and Address Organization Details Recorded Time 09/17/2023 text/html . Patient is a 63-year-old male diabetic who presents the office for diabetic foot care. Patient states he does have intermittent pain in his feet but denies any pain today. Patient is able the pain as being shooting and burning in nature which he rates at max 4/10. Patient states he does take diclofenac which helps to resolve his discomfort. Patient denies cramping with walking or resting. Patient has history of anxiety, arthritis, asthma, back problems, blood clotting issues, bowel problems, bronchitis, cardiac arrhythmia depression, diabetes, heartburn, herniated disc, high cholesterol, hypertension, obesity, pneumonia, sleep disorder, urinary problems, blood thinners use. Patient denies any other complaints. Brian Ibarra DPM [address] [facility], [place], [address], [facility] [employer] [facility] [employer] 09/17/2023 15:59:54 12/31/2023 text/html . Patient is a 63-year-old male who presents the office with complaints of left ankle pain. Patient denies injury to the ankle. Patient denies any signs of infection. Patient states when he is walking he has mild pain. Patient denies any giving out of the ankle. Patient denies any other complaints. Brian Ibarra DPM [address] [facility] [address], [place], [address], [place] [facility] 01/13/2024 11:03:11
--- OUTSIDE RECORDS SUMMARY | 2024-09-18 11:42 | XMS_ITS | Referral Summary ---
Author Organization [facility] [address] Address [address] [place] [address] Care Team Providers Care Ordnance Engineer Name Role Phone Babatunde Rees MD Primary Care Provider Encounters Date Type Department Care Team Description 09/17/2024 Telephone [facility] Cardiology [address] [facility] 8th [place] [address] [place] [address] Aparna Gunter MD 09/01/2024 10:00 AM CDT Clinical Support [facility] Movement Disorders [address] [place] [address] 7th [place] [address] Parkinson's disease with dyskinesia and fluctuating manifestations (HCC) 09/01/2024 9:30 AM CDT Office Visit [facility] Movement Disorders [address] [place] [phone] Selam Bright NP Parkinson's disease with dyskinesia and fluctuating manifestations (HCC) (Primary Dx); Dyskinesia due to Parkinson's disease (HCC); Mood disorder with depressive features due to general medical condition; Insomnia due to medical condition; Parkinson's disease (HCC) 07/15/2024 3:00 PM CDT Office Visit [facility] Medical Group Diabetes Endocrine Care at [address] [address] Deloris Chairez NP Type 2 [...] continuous glucose monitoring device 07/08/2024 Orders Only [facility] Movement Disorders [address] [place] [phone] Osiel Ramos MD 07/08/2024 Telephone [facility] Medical Group Diabetes Endocrine Care at [address] [place] [phone] Deloris Chairez NP from Last 3 Months Allergies No known [...] daily as needed 30 tablet 4 Active insulin degludec (TRESIBA) 100 unit/mL (3 [...] daily E11.65 90 tablet 3 5 Active escitalopram (LEXAPRO) 20 mg tabletIndication s:Parkinson's disease (HCC) Take 1 tablet (20 mg total) by mouth daily 90 tablet 3 5 026 Active escitalopram (LEXAPRO) 10 mg tabletIndication s:Parkinson's disease (HCC) Take 1 tablet (10 mg total) by mouth daily 90 tablet 3 4 025 Discontin ued(Reord er) Active Problems Problem Noted Date Diagnosed Date freestyle gurwinder continuous glucose monitoring de 07/15/2024 Assessment & Plan (07/15/2024 4:08 PM [...] 03/29 Assessment & Plan (04/14/2024 12:36 PM CAREGIVERS NON MEDICAL): Reports pain to the left foot and ankle. Ambulatory referral to Dr. gallegos Type 2 diabetes mellitus wit h hyperglycemia, with long-term current use of insulin 04/13/2024 Assessment & Plan (04/13/2024 5:27 PM CAREGIVERS NON MEDICAL): This is a chronic condition which is [...] units daily. Monitor blood sugar continuously with Bizily Gurwinder 3 cgm. Encouraged annual eye exam. last dilated eye exam was [facility] [place] Monofilament foot exam completed. Protective senses -intact [...] 07/31/2023 Assessment & Plan (04/13/2024 5:28 PM CAREGIVERS NON MEDICAL): This is a chronic condition which is [...] (11/22/2020): Added automatically from request for surgery [id number] Palpitations 01/07/2020 Essential hypertension 01/07/2020 Assessment & Plan (04/13/2024 5:29 PM CAREGIVERS NON MEDICAL): This is a chronic condition which is [...] (05/16/2018): Added automatically from request for surgery [id number] Incisional hernia 04/10/2018 Dyskinesia due to Parkinson's disease 08/19/2017 Pain in right knee 05/15/2016 Pain in left wrist 03/28/2016 Chronic pulmonary embolism 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 loss of protective senses. Ambulatory referral to Podiatry Dr. Paige in [place] for diabetic foot care Personally reviewed CMP [...] 06/16/2012 Assessment & Plan (04/13/2024 5:28 PM CAREGIVERS NON MEDICAL): This is a chronic condition which continues [...] constipation Parkinson's disease 07/11/2011 Assessment & Plan (09/15/2024 3:03 PM CDT): He has stage 2 tremor-predominant PD with symptom onset in 2005, with excellent response to levodopa. He had bothersome wearing off and dyskinesia within the first few years of illness that astonishingly cleared up and he has done very well ever since. However, he has been having some other health issues that have caused him to be unable to work out and he can really tell the difference. We will keep his carbi/levo and entacapone the same today but we will rx PT and he needs to try and resume his previously robust workout regimen. Cognition remains excellent. His mood and spirits are not as good and we will increase his escitalopram today. Insomnia is under good control with trazodone, mirtazapine and clonazepam but this was substantial in the past. RBD remains reasonably well controlled on low dose clonazepam even with the mirtazapine on board. Recommendations: -continue same CD/LD. -continue mirtazapine, clonazepam, escitalopram and trazodone for insomnia -resume regular exercise and boxing. My total encounter time was 42 minutes which was spent in the activities documented in the note including interview, assessment, education, and support. This includes time spent prior to the visit with 24 hours of the visit and after the visit in direct care of the patient. This time does not include time spent in any separately reportable services. I am seeing this patient for a chronic condition and will have continued care with this patient. Assessment & Plan (10/23/2023 4:44 PM CDT): [...] - follow up in 6 months with PLYWOOD AND VENEER REPAIRER and in 1 year with us Visit was started at 3:25 and ended at 4:30 Luis Mulligan MD Movement Neurology Fellow [facility] in [place] Assessment & Plan (04/17/2023 12:13 PM CAREGIVERS NON MEDICAL): He has stage 2 tremor-predominant PD with [...] head) Assessment & Plan (03/30/2022 5:17 PM CAREGIVERS NON MEDICAL): He has stage 2 tremor-predominant PD with [...] daily Assessment & Plan (06/22/2020 6:13 PM CAREGIVERS NON MEDICAL): He has stage 2 PD of 16 [...] constipation. Assessment & Plan (03/20/2019 3:24 PM CAREGIVERS NON MEDICAL): He has mild stage 2 PD with [...] on file Legal Sex Male 12:49 AM CAREGIVERS NON MEDICAL Gender Identity Male 01/07/2021 10:34 AM CDT Sexual Orientation Straight 06/15/2020 11 :14 AM CAREGIVERS NON MEDICAL Last Filed Vital Signs Vital Sign Reading Time Taken Comments Blood Pressure 145/80 09/01/2024 8:58 AM CDT Pulse 72 09/01/2024 8:58 AM CDT Temperature 36.2 C (97.2 F) 03/07/2023 7:32 AM CAREGIVERS NON MEDICAL Respiratory Rate 17 03/07/2023 8:39 AM CAREGIVERS NON MEDICAL Oxygen Saturation 97% 01/14/2024 12: 11 PM CDT Inhaled Oxygen Concentration - - Weight 114.7 kg (252 lb 12.8 oz) 09/01/2024 8:58 AM CDT Height 180.3 cm (5' 11 ) 09/01/2024 8:58 AM CDT Body Mass Index 35.26 09/01/2024 8:58 AM CDT Plan of Treatment Not on file Medical Devices Implanted Type [employer] Device Identifier Shelf Expiration Date Model / Serial / Lot [employer]ol Inc/C R Bard [id number] Monofilament Soft Lightweight Low Profile Square - Sn/A - [id number] Implanted:Qty: 1 on 08/28/2018 by George Washington MD at [facility] M[employer]/C Emely Huslia [id number] 05/26/2023 [id number] / N/A / [id number] Procedures Procedure Name Priority Date/Time Associated Diagnosis [...] 2 diabetes 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, unspecified whether buttermaker continuous churn insulin use (HCC) LIPID PANEL Routine 11/06/2023 8:28 AM CDT Type 2 diabetes 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, unspecified whether fpc insulin use (HCC) ALBUMIN CREATININE RATIO, URINE Routine 11/06/2023 8:28 AM CDT Type 2 diabetes 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, unspecified whether fpc insulin use (HCC) COLONOSCOPY 03/07/2023 7:46 AM CAREGIVERS NON MEDICAL from Last 3 Months or Most Recently [...] BLOOD ORDERABLES Final Resu lt KATHIE SOLORZANO [address] [place] [address] * Albumin Creatinine Ratio, Urine [...] 11/06/2023 2:04 PM CDT us Deloris Chairez NP LAB URINE ORDERABLES Final Resu lt KATHIE [address] [place] [address] * (ABNORMAL) Lipid panel (11/06/2023 8:28 AM [...] BLOOD ORDERABLES Final Resu lt KATHIE SOLORZANO [address] [facility] Department [place] [address] * COLONOSCOPY (03/07/2023 7:46 AM CAREGIVERS NON MEDICAL) Anatomical Region Laterality Modality Other Narrative Procedure Note Chano Santos MD - 03/07/2023 7:46 AM CST ENDOSCOPY LAB Patient Name: Pal Hurtado Procedure Date: 03/07/2023 7:46 AM Admit Type: Outpatient Room: [facility] Date of : 1960 Instrument Name: [id number] [...] my nurses in the GI office at [phone] ([phone]) for your final pathology results in7 days. [...] Recently Relevant to Health Maintenance Insurance MEDICARE [facility] TRADITIONAL MEDICARE [facility] TRADITIONAL [facility] TRADITIONAL MEDICARE Advance Directives For more information, please contact: [phone] * Full Code (Latest Code Status on File) Date Activated Date Inactivated Comments 03/07/2023 7:26 AM 03/07/2023 1:13 PM * Full Code Date Activated Date Inactivated Comments 03/07/2022 6:48 AM 03/07/2022 1:17 PM * Full Code Date Activated Date Inactivated Comments 10/17/2020 8:10 AM 10/17/2020 2:59 PM * Full Code Date Activated Date Inactivated Comments 08/28/2018 9:13 PM 08/29/2018 10:17 PM Care Teams Ordnance Engineer Relationship Specialty Start Date End Date Babatunde Rees MD PCP - General 08/27/16
--- OUTSIDE RECORDS SUMMARY | 2024-09-18 11:42 | XMS_ITS | Encounter Summary ---
Author Organization [facility] Address [address] [place] [address] Phone Care Team Providers Care Boat Builder And Repairer Name Role Phone Babatunde Rees MD Primary Care Provider [phone] Encounter Details Date Type Department Care Team (Late st Contact Info) Description 09/17/2024 Telephone [facility] Cardiology [address] [facility] 8th [place] [address] [place] [phone] Aparna Gunter MD [address] [place] [address] Social History Tobacco Use Types Packs/Day Years Used Date Smoking Tobacco: Former Cigarettes 0.5 23 1 976 - 1999 Smokeless Tobacco: Never Alcohol Use Standard Drinks/Week Comments Yes 3 [...] on file Legal Sex Male 12:49 AM TRAFFIC LIEUTENANT Gender Identity Male 01/07/2021 10:34 AM CDT Sexual Orientation Straight 06/15/2020 11 :14 AM TRAFFIC LIEUTENANT documented as of this encounter Miscellaneous Notes * Telephone Encounter - Laurel Coronado RN - 09/17/2024 1:51 PM CDT Spoke with pt He has collapsed in left lower lung following with pulmonary He can feel his heart beating hard this is new and started about 2 months ago when he started having this lung issue. He is sob when this occurs. Last night he was not feeling well He could feel his heart beating hard and was sob. No chest pain, no dizziness. Took his bp 165/95, 79 took an extra amlodipine 136/76, HR 72 after he took the extra amlodipine Today felt fine, bp this am 142/71, HR 69 He went to pickle processor sticks and was feeling sob and his bp was high after 171/79, HR 77 No swelling in legs or feet. Current meds Amlodipine 5 mg am Ramipril 10 mg am Clonazepam 0.5 mg q pm Rosuvastatin 40 mg every day Lasix 20 mg as needed last time he took this was 2 wks ago for a couple of days. Lexapro Ozempic Sinemet He is asking if he can increase his amlodipine to 10 mg daily and or if you have any other recommendations? He states since this lung issue he has been having this issue with the feeling of heart beating hard, sob and elevated bp Pulmonary ordered another chest xray to be done tomorrow and will have f/u based on xray results. His main question for us was if he can increase amlodipine * Telephone Encounter - Анна Silva - 09/17/2024 9:56 AM CDT Amparoaini Patient called stating his BP has been elevated and he has been taking more medication to control it. He would like a return call at [phone]. documented in this encounter Plan of Treatment Not on file documented as of this encounter Visit Diagnoses Not on filedocumented in this encounter Care Teams Boat Builder And Repairer Relationship Specialty Start Date End Date Babatunde Rees MD PCP - General 08/27/16 documented as of this encounter
--- OUTSIDE RECORDS SUMMARY | 2024-09-18 11:42 | XMS_ITS | Clinical Summary ---
Author Organization [facility] [address] Address [address] [place] [address] Care Team Providers Care Drum Drier Name Role Phone Babatunde Rees MD Primary [...] 03/29 Assessment & Plan (04/14/2024 12:36 PM ROCK CRUSHING MACHINE OPERATOR): Reports pain to the left foot and ankle. Ambulatory referral to Dr. gallegos Type 2 diabetes mellitus wit h hyperglycemia, with long-term current use of insulin 04/13/2024 Assessment & Plan (04/13/2024 5:27 PM ROCK CRUSHING MACHINE OPERATOR): This is a chronic condition [...] eye exam. last dilated eye exam was [facility] in [place] Monofilament foot exam completed. Protective senses -intact [...] 07/31/2023 Assessment & Plan (04/13/2024 5:28 PM ROCK CRUSHING MACHINE OPERATOR): This is a chronic condition [...] (11/22/2020): Added automatically from request for surgery [id number] Palpitations 01/07/2020 Essential hypertension 01/07/2020 Assessment & Plan (04/13/2024 5:29 PM ROCK CRUSHING MACHINE OPERATOR): This is a chronic condition [...] (05/16/2018): Added automatically from request for surgery [id number] Incisional hernia 04/10/2018 Dyskinesia due to Parkinson's disease 08/19/2017 Pain in right knee 05/15/2016 Pain in left wrist 03/28/2016 Chronic pulmonary embolism 05/24/2015 [facility] current use of anticoagulant therapy 0 05/24/2015 [...] eye exam was [facility] in [place] Monofilament foot exam completed. loss of protective senses. Ambulatory referral to Podiatry Dr. Paige in [place] for diabetic foot care Personally reviewed CMP [...] 06/16/2012 Assessment & Plan (04/13/2024 5:28 PM ROCK CRUSHING MACHINE OPERATOR): This is a chronic condition [...] - follow up in 6 months with GAS STOVE SERVICER HELPER and in 1 year with us Visit was started at 3:25 and ended at 4:30 Luis Mulligan MD Movement Neurology Fellow [facility] in [place] Assessment & Plan (04/17/2023 12:13 PM ROCK CRUSHING MACHINE OPERATOR): He has stage 2 tremor-predominant [...] head) Assessment & Plan (03/30/2022 5:17 PM ROCK CRUSHING MACHINE OPERATOR): He has stage 2 tremor-predominant [...] daily Assessment & Plan (06/22/2020 6:13 PM ROCK CRUSHING MACHINE OPERATOR): He has stage 2 PD [...] constipation. Assessment & Plan (03/20/2019 3:24 PM ROCK CRUSHING MACHINE OPERATOR): He has mild stage 2 [...] Type Department Care Team Description 09/17/2024 Telephone [facility] Cardiology [address] [facility] 8th [place] [address] [place] [address] Aparna Gunter MD 09/01/2024 10:00 AM CDT Clinical Support [facility] Movement Disorders [address] [place] [phone] Parkinson's disease with dyskinesia and fluctuating manifestations (HCC) 09/01/2024 9:30 AM CDT Office Visit [facility] Movement Disorders [address] [place] [phone] Selam Bright NP Parkinson's disease with dyskinesia and fluctuating manifestations (HCC) (Primary Dx); Dyskinesia due to Parkinson's disease (HCC); Mood disorder with depressive features due to general medical condition; Insomnia due to medical condition; Parkinson's disease (HCC) 07/15/2024 3:00 PM CDT Office Visit [facility] Medical Group Diabetes Endocrine Care at [address] [address] Deloris Chairez, JESSICA Type 2 [...] continuous glucose monitoring device 07/08/2024 Orders Only [facility] Movement Disorders [address] [place] [phone] Osiel Ramos MD 07/08/2024 Telephone [facility] Medical [facility] Diabetes Endocrine Care at [address] [address] Deloris Chairez NP from Last [...] on file Legal Sex Male 12:49 AM ROCK CRUSHING MACHINE OPERATOR Gender Identity Male 01/07/2021 10:34 AM CDT Sexual Orientation Straight 06/15/2020 11 :14 AM ROCK CRUSHING MACHINE OPERATOR Obstetrics History Last Filed Vital Signs Vital Sign Reading Time Taken Comments Blood Pressure 145/80 09/01/2024 8:58 AM CDT Pulse 72 09/01/2024 8:58 AM CDT Temperature 36.2 C (97.2 F) 03/07/2023 7:32 AM ROCK CRUSHING MACHINE OPERATOR Respiratory Rate 17 03/07/2023 8:39 AM ROCK CRUSHING MACHINE OPERATOR Oxygen Saturation 97% 01/14/2024 12: 11 PM CDT Inhaled Oxygen Concentration - - Weight 114.7 kg (252 lb 12.8 oz) 09/01/2024 8:58 AM CDT Height 180.3 cm (5' 11 ) 09/01/2024 8:58 AM CDT Body Mass Index 35.26 09/01/2024 8:58 AM CDT Plan of Treatment Health Maintenance Due Date Last Done Comments Hepatitis C Screening 1960 Prostate Cancer Screening-PSA [...] exists Foot Exam 04/13/2025 04/13/2024, 10/28, 07/31/2023 Depression Screening 09/01/2025 09/01/2024 Dilated Eye Exam 05/14/2026 05/14/2024 Colon Cancer [...] history exists Medical Devices Implanted Type Area Bin Operator Device Identifier Shelf Expiration Date Model / Serial / Lot [employer]ol Inc/C R Bard [id number] Bard [id number] Monofilament Soft Lightweight Low Profile Square - Sn/A - [id number] Implanted:Qty: 1 on 08/28/2018 by George Washington MD at [facility] [employer] R Bard [id number] 05/26/2023 [id number] / N/A / [id number] Procedures Procedure Name Priority Date/Time Associated Diagnosis [...] 2 diabetes 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, unspecified whether [facility] insulin use (HCC) LIPID PANEL Routine 11/06/2023 8:28 AM CDT Type 2 diabetes 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, unspecified whether long term care pharmacist insulin use (HCC) ALBUMIN CREATININE RATIO, URINE Routine 11/06/2023 8:28 AM CDT Type 2 diabetes 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, unspecified whether long term care pharmacist insulin use (HCC) COLONOSCOPY 03/07/2023 7:46 AM ROCK CRUSHING MACHINE OPERATOR from Last 3 Months or [...] ORDERABLES Final Resu lt Performing Organization Address [facility] Co de Phone Number KATHIE SOLORZANO [address] [place] [address] * Albumin Creatinine Ratio, Urine (11/06/2023 8:28 AM CDT) Albumin Ur 17.4 mg/L Comment: Interpretive Data No reference range established. Current interpretive data was last revised 2018. Creatinine Ur 171.5 mg/dL [facility] Comment: Interpretive Data No reference range established. Current interpretive data was last revised 2018. Albumin Creatinine Ratio, Ur 10 1 - 29 mg/g [facility] Urine 11/06/2023 8:28 AM CDT 11/06/2023 2:04 PM CDT Deloris Chairez NP LAB URINE ORDERABLES Final Resu lt Performing Organization Address [facility] Co de Phone Number KISHANDOMENICO SOLORZANO [address] [facility] [place], [place] [phone] * (ABNORMAL) Lipid panel (11/06/2023 8:28 AM [...] LAB BLOOD ORDERABLES Final Resu lt KATHIE [address] Department [place] [address] * COLONOSCOPY (03/07/2023 7:46 AM ROCK CRUSHING MACHINE OPERATOR) Anatomical Region Laterality Modality Other Narrative Procedure Note Chano Santos MD - 03/07/2023 7:46 AM CST ENDOSCOPY LAB Patient Name: Pal Hurtado Procedure Date: 03/07/2023 7:46 AM Admit Type: Outpatient Room: [facility] 8 Date of : 1960 Instrument Name: [id number] Gender: Male Note Status: Finalized Procedure: Colonoscopy [...] my nurses in the GI office at [phone] ([phone]) for your final pathology results in7 days. [...] Recently Relevant to Health Maintenance Insurance MEDICARE [facility] TRADITIONAL MEDICARE [facility] TRADITIONAL [facility] TRADITIONAL MEDICARE [facility] Address: [address] [address] [place] [address] Advance Directives For more information, please contact: [phone] * Full Code (Latest Code Status on File) Date Activated Date Inactivated Comments 03/07/2023 7:26 AM 03/07/2023 1:13 PM * Full Code Date Activated Date Inactivated Comments 03/07/2022 6:48 AM 03/07/2022 1:17 PM * Full Code Date Activated Date Inactivated Comments 10/17/2020 8:10 AM 10/17/2020 2:59 PM * Full Code Date Activated Date Inactivated Comments 08/28/2018 9:13 PM 08/29/2018 10:17 PM Care Teams Drum Drier Relationship Specialty Start Date End Date Babatunde Rees MD PCP - General 08/27/16
--- OUTSIDE RECORDS SUMMARY | 2024-09-18 11:42 | XMS_ITS | Clinical Summary ---
[facility] Organization [facility] [place] Address [address] [facility] [place] [address] Phone Care Team Providers Care Other Sports Official Name Role Phone Babatunde Rees MD Primary Care Provider [phone] Social History Tobacco Use Types Packs/Day Years [...] 2035 Insurance MEDICARE PART A AND B [facility] [employer] Care Teams Other Sports Official Relationship Specialty Start Date End Date Babatunde Rees MD [address] [place] [address] PCP - General Family Practice 06/28/21
--- OUTSIDE RECORDS SUMMARY | 2024-09-18 11:42 | XMS_ITS | Clinical Summary ---
Author Organization [facility] [email or web address] Address [address] [place] [address] Care Team Providers Care Assembler Arranger Name Role Phone Babatunde Rees MD Primary Care Provider [phone] Source Comments knowNormal,non-owned Affiliates and Associated Physician Practices is amultiple site organization consisting of ambulatory clinics and hospital sitesin [place], [place], [place] and [place]. This disclosure is being madepursuant to the Care Everywhere program and may not contain all information available regarding this patient. Last updated 18.knowNormal Allergies No known active allergies Medications * [...] care, and heating? Not very hard 06/18/2022 [facility] [place] [facility] Occupat ional Health - Occupational Stress [...] place to sleep or slept in a [facility] (including now)? No 06/18/2022 Sex and Gender Information Value Date Recorded Sex Assigned at Not on file Legal Sex Male 5:24 AM ANTIQUE REFINISHER Gender Identity Not on file Sexual Orientation Not on file Last Filed Vital Signs Vital Sign Reading Time Taken Comments Blood Pressure 128/64 07/04/2022 1:18 PM ANTIQUE REFINISHER Pulse 78 07/04/2022 1:18 PM ANTIQUE REFINISHER Temperature 36.7 C (98.1 F) 07/04/2022 1:18 PM ANTIQUE REFINISHER Respiratory Rate 16 07/04/2022 1:18 PM ANTIQUE REFINISHER Oxygen Saturation 97% 07/04/2022 1:18 PM ANTIQUE REFINISHER Inhaled Oxygen Concentration - - Weight 113.4 kg (250 lb) 06/21/2022 1:00 PM ANTIQUE REFINISHER stated Height 180.3 cm (5' 11 ) 06/21/2022 1:00 PM ANTIQUE REFINISHER Body Mass Index 34.87 06/21/2022 1:00 PM ANTIQUE REFINISHER Plan of Treatment Health Maintenance Due Date [...] this topic Medical Devices Implanted Type Area Dropper Tank Storage Device Identifier Shelf Expiration Date Model / Serial / Lot Cmnt Bone Djo Srg Cblt 40gm Hvisc Strl Implanted:Qty: 2 on 06/18/2022 by Ishmael Hutchins MD at [facility] Right: Knee [employer] 12/21/2023 [id number] / / [id number] Cmpnt Ptlr Std 28mm 3 Pg Kn Ser A Implanted:Qty: 1 on 06/18/2022 by Ishmael Hutchins MD at [facility] Right: Knee [employer] 03/06/2027 [id number] / / [id number] Tray Tib 75mm Kn Cocr I Beam Implanted:Qty: 1 on 06/18/2022 by Ishmael Hutchins MD at [facility] Right: Knee [employer] 01/25/2032 [id number] / / [id number] Cmpnt Fem Kn Rt Cr Cmnt Prm Vngrd Intlk 70 Mm Implanted:Qty: 1 on 06/18/2022 by Ishmael Hutchins MD at [facility] Right: Knee [employer] 05/01/2032 [id number] / / [id number] Vanguard Knee Tibial Bearing 75 Mm X 14 Mm Implanted:Qty: 1 on 06/18/2022 by Ishmael Hutchins MD at [facility] Right: Knee [employer] 09/27/2026 [id number] / / [id number] Procedures Procedure Name Priority Date/Time Associated Diagnosis Comments GLUCOSE - POINT OF CARE Routine 06/19/2022 11:22 AM ANTIQUE REFINISHER from Last 3 Months or Most Recently Relevant to Health Maintenance Results * (ABNORMAL) GLUCOSE - POINT OF CARE (06/19/2022 11:22 AM ANTIQUE REFINISHER) Glucose WB/POC 199(H) 70 - 106 mg/dL 06/19/2022 4:19 PM ANTIQUE REFINISHER [facility] Specimen Type Cap Fingerstick 2022 4:19 PM ANTIQUE REFINISHER [facility] Blood BLOOD SPECIMEN / Unknown 06/19/2022 11:22 AM ANTIQUE REFINISHER 06/19/2022 4:19 PM ANTIQUE REFINISHER Ishmael Hutchins MD LAB - POINT OF CARE ORDERABLE S Final Result [facility] [address] [place] [address] from Last 3 Months or Most Recently Relevant to Health Maintenance Insurance MEDICARE [employer] MEDICARE [employer] Advance Directives Documents on File Type Date Recorded Patient Licensing Representative Expl anation Adv Directive/Living Will/POA * Full Code (Latest Code Status on File) Date Activated Date Inactivated Comments 06/18/2022 11:16 AM 06/19/2022 1:40 PM Care Teams Assembler Arranger Relationship Specialty Start Date End Date Babatunde Rees MD [address] [place] [address] PCP - General 08/17/20
== END 2024-09-18 11:37 | disposition home or self-care (01) ==
LOC: ANHIMG 11:40
PROVIDERS: PCP Family Medicine; Visit Provider Nurse Practitioner Family
DX: R06.09 Other forms of dyspnea (principal)
CPT/HCPCS: 71046

== ENCOUNTER 2024-10-25 02:47 | Emergency (ER) | payer MEDICARE, BC, SELFPAY ==
[2024-10-25] VITALS (13 sets, daily range): BP systolic 128–152; BP diastolic 62–79; PULSE 70–85; RESP 13–25; TEMP 36.6; O2SAT 94–98
--- NOTE | ~2024-10-25 | CT_ITS ---
Clinical Indication: Chest pain, abdominal pain CT Scan of the Chest, Abdomen, and Pelvis with Contrast: Technique: Contiguous sections were acquired throughout the chest, abdomen, and pelvis after intraven ous administration of 100 cc of Omnipaque 350. Dose reduction technique was used on this scan by migue samayoa automated exposure control and iterative reconstruction technique. The dose-length product (DL P) was 1499.22 mGy-cm. Findings: There is no evidence of any significant mediastinal, hilar or axillary lymphadenopathy. The mediastin al soft tissues and vascular structures appear normal. No aortic aneurysm or dissection. No pulmonary embolus seen. There is no evidence of pleural or pericardial effusion. The lungs are clear. No pulmonary nodules or infiltrates are noted. The liver, spleen, pancreas, gallbladder, adrenals and kidneys are within normal limits. No evidence of aortic aneurysm or dissection. No lymphadenopathy. Small umbilical hernia contains a focal small bowel. No bowel obstruction or bowel wall thickening. Urinary bladder is unremarkable. No pelvic mass seen. No ascites. Impression: Small umbilical hernia contains a focal small bowel loop. No bowel obstruction or bowel wall thickeni ng. No other significant findings. Reviewed, dictated and finalized at [facility]. Impression: Small umbilical hernia contains a focal small bowel loop. No bowel obstruction or bowel wall thickening. No other significant findings.
--- NOTE | ~2024-10-25 | XR_ITS ---
Portable chest x-ray Comparison: 09/18/2024 Clinical History: Chest pain Findings: Lungs are clear, without focal consolidation or pleural effusion. Cardiomediastinal silho uette is stable. Bones and soft tissues are unremarkable. Impression: Clear lungs. Reviewed, dictated and finalized at location . Impression: Clear lungs.
--- NOTE | 2024-10-25 02:54 | ECG_ITS ---
Test Date: 2024-10-25 02:54:24 Measurements Intervals [place] Rate: 72 P: 55 DC: 168 QRS: 14 QRSD: 105 T: 40 QT: 397 QTc: 436 Interpretive Statements SINUS RHYTHM POSSIBLE LEFT ATRIAL ENLARGEMENT INCOMPLETE RIGHT BUNDLE BRANCH BLOCK BASELINE ARTIFACT- II, III, AVR, AVL, AVF BORDERLINE ECG No previous ECG available for comparison Electronically Signed On 10-25-2024 08:26:31 CDT by Juanito Kolb D.O.
[2024-10-25 03:06] LABS: Basophils Absolute Auto 0.1 K/mm3 (0.0-0.1); Basophils Percent Auto 0.4 % (0.2-1.2); Eosinophils Absolute Auto 0.1 K/mm3 (0-0.3); Eosinophils Percent Auto 0.4 % (0-4.4); Hematocrit 42.9 % (42.0-52.0); Immature Granulocyte Absolute 0.08 K/mm3 (0.00-0.031); Immature Granulocyte Percent A 0.6 % (0-0.5); Lymphocytes Absolute Auto 1.37 K/mm3 (0.9-3.2); Lymphocytes Percent Auto 9.8 % (18.3-44.2); Mean Corpuscular HGB Conc 32.6 g/dl (32-36); Mean Corpuscular Volume 91.9 fl (80-100); Mean Platelet Volume 10.8 fl (7.4-10.4); Monocytes Absolute Auto 1.2 K/mm3 (0.1-0.6); Monocytes Percent Auto 8.2 % (2.6-8.5); Neutrophils Absolute Auto 11.3 K/mm3 (1.3-6.7); Neutrophils Percent Auto 80.6 % (45.5-73.1); Platelet Count Result 197 k/mm3 (150-375); Red Blood Count 4.67 M/mm3 (4.6-6.20); Red Cell Distribution Width 13.1 % (11.5-14.5)
[2024-10-25 03:17] LABS: Prothrombin Time 13.1 Seconds (11.1-14.7)
[2024-10-25 03:18] LABS: Partial Thromboplastin Time 25.1 Seconds (22.3-36.8)
[2024-10-25 04:38] LABS: Alanine Aminotransferase 22 U/L (6-50); Albumin Level 4.4 g/dL (3.5-5.1); Alkaline Phosphatase 101 U/L (38-126); Anion Gap 14 mmol/L (4-12); Aspartate Amino Transferase 34 U/L (17-59); Bilirubin,Total 0.5 mg/dL (0.2-1.3); Blood Urea Nitrogen 22 mg/dL (9-20); Calcium 9.8 mg/dL (8.4-10.2); Carbon Dioxide 24 mmol/L (22-30); Chloride 100 mmol/L (98-107); Estimated CRCL calculation 108 ml/min; Estimated Glomerular Filt Rate > 60; Glucose 278 mg/dL (65-110); Lipase 194 U/L (23-300); Potassium 4.2 mmol/L (3.4-5.0); Sodium 138 mmol/L (137-145); Total Protein 7.4 g/dL (6.3-8.2)
[2024-10-25 04:49] LABS: Troponin I < 0.012 ng/mL (0.000-0.034)
--- NOTE | 2024-10-25 05:55 | ECG_ITS ---
Test Date: 2024-10-25 06:23:26 Measurements Intervals [place] Rate: 70 P: 46 AR: 212 QRS: 5 QRSD: 96 T: 28 QT: 376 QTc: 406 Interpretive Statements SINUS RHYTHM WITH MARKED SINUS ARRHYTHMIA WITH FIRST DEGREE AV BLOCK INCOMPLETE RIGHT BUNDLE BRANCH BLOCK BORDERLINE ECG Compared to ECG 10/25/2024 02:54:24 First degree AV block now present Electronically Signed On 10-25-2024 08:31:08 CDT by Juanito Kolb D.O.
[2024-10-25 06:40] LABS: Troponin I < 0.012 ng/mL (0.000-0.034)
--- NOTE | 2024-10-25 07:45 | ED_ITS ---
HPI - General Adult General Chief complaint: Chest Pain Stated complaint: chest pain Time Seen by Provider: 10/25/24 06:58 History of Present Illness HPI narrative: This is a 64-year-old male presenting with epigastric/chest pain. At 11:30 a.m. last night patient said he felt like there was an explosion in the center his chest. It then turned into an achy pain when going from the epigastric/substernal region to straight to his back. Pain was severe in intensity. It is constant until 6:00 a.m. when it spontaneously resolved. He has never had pain like this before there are no exacerbating alleviating factors. The patient took Tums thinking that it might have been GERD that did not help. He tried to make himself vomit was unsuccessful. Symptoms are nonexertional with no vomiting/diaphoresis. He does not have any weakness to any extremity or any neurologic deficits. He states he has been having recurrent URIs for the last 8 months. Related Data Home Medications ?Medication ?Instructions ?Recorded ?Confirmed ?Last Taken ?Type carbidopa 25 mg-levodopa 100 mg 5 tablet PO DIRECTED 10/05/19 02/26/24 08/16/20 07:50 History tablet (Sinemet) clonazepam 0.5 mg tablet 0.5 mg PO .QHS 10/05/19 02/26/24 Unknown History escitalopram oxalate 10 mg tablet 10 mg PO DAILY 02/18/20 02/26/24 Unknown History mirtazapine 45 mg tablet 45 mg PO HS 02/18/20 02/26/24 Unknown History trazodone 100 mg tablet 100 mg PO DAILY 02/18/20 02/26/24 Unknown History Allergies Allergy/AdvReac Type Severity Reaction Status Date / Time No Known Allergies Allergy Verified 10/25/24 02:56 [facility] Past Medical History Medical History Adult BMI 33.0-33.9 kg/sq m Anxiety Arthritis Arthritis of right knee Asthma BMI 32.0-32.9,adult BMI 34.0-34.9,adult BMI greater than 30 Colonoscopy planned Depression Diabetes type 2 Essential hypertension Gastroesophageal reflux disease without esophagitis HLD (hyperlipidemia) HTN (hypertension) Mixed hyperlipidemia LEONCIO (obstructive sleep apnea) Other pulmonary embolism without acute cor pulmonale Parkinsons disease Pulmonary embolism Right knee DJD Synovial cyst of right popliteal space Tear of lateral meniscus of right knee Type 2 diabetes mellitus without complications Unspecified asthma, uncomplicated Surgical History Surgical History H/O shoulder surgery Right RTC (between 6996-[address] Adalberto Bhakta) Left RTC (between 5960-[address] Adalberto Bhakta) History of back surgery 1989 spinal fusion S1/L5 and L4/L5 by Dr. Candido Guerrero. History of hernia surgery Umbilical hernia x3 [id number] Nguyen. Umbilical hernia [address] Kaveh [place]. History of knee surgery Left knee arthroscopy 1973 Dr. Reta Yancey Left knee arthroscopy x2 (between 4904-7746) by Dr. Adalberto Bhakta Right knee arthroscopy x2 (between 6236-[address] Adalberto Bhakta Left knee partial replacement [address] Adalberto Bhakta Left TKA [address] Hema Winter Kidney stones [address] Norris. Family History Family History Father Hypertension Family history of lung cancer, Onset Age: 57 Alcoholism Grandparent Hypertension Cerebrovascular accident Sibling Family history of lung cancer Mother Family history of chronic obstructive pulmonary disease Liver failure Sibling Alcoholism Other Arthritis Diabetes mellitus Family history of malignant neoplasm Family history of tuberculosis Social History Social History Smoking packs per day: 0.5 Smoking cigarettes per day: 10.0 Smoking status: Former smoker Tobacco type: cigarettes Second hand tobacco smoke exposure: Yes Smoking end date: 04/29/00 Alcohol intake: current Drinks per week: 2 Alcohol use details: 2 GLASSES OF WINE PER WEEK Substance use: never Substance use type: does not use Living arrangements: with family 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 Head: atraumatic. EYES: EOMI, NOSE: Atraumatic NECK: Trachea midline RESPIRATORY: No increased rate of breathing clear to auscultation CARDIOVASCULAR: RRR, equal pulses in all extremities ABDOMINAL: Non-distended soft nontender MUSCULOSKELETAl: No obvious deformities NEURO: Alert. Cranial nerves 2-12 grossly intact. Sensation light touch, motor function cerebellar function intact for 4 extremities. Gait exam was normal. SKIN:: Warm, dry. Normal color PSYCHIATRIC: Normal affect Course Vital Signs Vital signs: Vital Signs Temperature 97.8 F 10/25/24 02:48 Pulse Rate 81 10/25/24 02:48 Respiratory Rate 20 10/25/24 02:48 Blood Pressure 128/62 10/25/24 02:48 Pulse Oximetry 95 10/25/24 02:48 Oxygen Delivery Room Air 10/25/24 02:48 Temperature 97.8 F 10/25/24 02:48 Pulse Rate 76 10/25/24 07:58 Respiratory Rate 18 10/25/24 07:58 Blood Pressure 134/74 10/25/24 07:58 Pulse Oximetry 98 10/25/24 07:58 Oxygen Delivery Room Air 10/25/24 02:54 Medical Decision Making MDM Narrative Medical decision making narrative: -Course: 64-year-old male presenting chest pain radiating to his back that spontaneously resolved without intervention. Patient is now asymptomatic with stable vital signs and no complaints. Physical exam is unremarkable. CTA of the chest abdomen pelvis did not reveal any causative findings. Chest x-ray clear. Troponins negative x2. EKG is without ischemic changes. Patient was updated on the results. They have a carpet layer they can follow-up with me next several days. They have been given return precautions. -DDX includes but is not limited to: Vascular pathology, ACS, pneumonia GERD/peptic ulcer disease, pancreatitis, gallbladder disease Vital Signs Vital Signs: Vital Signs Temperature 97.8 F 10/25/24 02:48 Pulse Rate 81 10/25/24 02:48 Respiratory Rate 20 10/25/24 02:48 Blood Pressure 128/62 10/25/24 02:48 Pulse Oximetry 95 10/25/24 02:48 Oxygen Delivery Room Air 10/25/24 02:48 Temperature 97.8 F 10/25/24 02:48 Pulse Rate 76 10/25/24 07:58 Respiratory Rate 18 10/25/24 07:58 Blood Pressure 134/74 10/25/24 07:58 Pulse Oximetry 98 10/25/24 07:58 Oxygen Delivery Room Air 10/25/24 02:54 Lab Data 10/25/24 02:56 10/25/24 02:56 Labs: Lab Results 10/25/24 10/25/24 10/25/24 Range/Units 02:56 06:09 08:26 WBC 14.0 H (4.5-10.0) K/mm3 RBC 4.67 (4.6-6.20) M/mm3 Hgb 14.0 (14.0-18.0) g/dL Hct 42.9 (42.0-52.0) % MCV 91.9 (80-100) fl MCH 30.0 (26-34) pg MCHC 32.6 (32-36) g/dl RDW 13.1 (11.5-14.5) % Plt Count 197 (150-375) k/mm3 MPV 10.8 H (7.4-10.4) fl Immature Gran % (Auto) 0.6 H (0-0.5) % Neut % (Auto) 80.6 H (45.5-73.1) % Lymph % (Auto) 9.8 L (18.3-44.2) % [place] % (Auto) 8.2 (2.6-8.5) % Eos % (Auto) 0.4 (0-4.4) % Baso % (Auto) 0.4 (0.2-1.2) % Lymph # (Auto) 1.37 (0.9-3.2) K/mm3 [place] # (Auto) 1.2 H (0.1-0.6) K/mm3 Eos # (Auto) 0.1 (0-0.3) K/mm3 Baso # (Auto) 0.1 (0.0-0.1) K/mm3 Abs Immat Gran (auto) 0.08 H (0.00-0.031) K/mm3 Absolute Neuts (auto) 11.3 H (1.3-6.7) K/mm3 Absolute Nucleated RBC 0.000 (0.0-0.012) K/mm3 Nucleated RBC % 0.0 (0.0-0.2) % PT 13.1 (11.1-14.7) Seconds INR 1.0 APTT 25.1 (22.3-36.8) Seconds Sodium 138 (137-145) mmol/L Potassium 4.2 (3.4-5.0) mmol/L Chloride 100 (98-107) mmol/L Carbon Dioxide 24 (22-30) mmol/L Anion Gap 14 H (4-12) mmol/L BUN 22 H (9-20) mg/dL Creatinine 0.78 (0.7-1.3) mg/dL Estim Creat Clear Calc 108 ml/min Estimated GFR > 60 (59 - ) Glucose 278 H (65-110) mg/dL Calcium 9.8 (8.4-10.2) mg/dL Total Bilirubin 0.5 (0.2-1.3) mg/dL AST 34 (17-59) U/L ALT 22 (6-50) U/L Alkaline Phosphatase 101 (38-126) U/L Troponin I < 0.012 < 0.012 < 0.012 (0.000-0.034) ng/mL Total Protein 7.4 (6.3-8.2) g/dL Albumin 4.4 (3.5-5.1) g/dL Lipase 194 (23-300) U/L Discharge Plan Discharge Clinical Impression: Atypical chest pain Patient Disposition: Home Condition: Stable Instructions: Antibiotic Form, Chest Pain (ED) Additional Instructions: Valentín was seen in the emergency department for chest pain. His EKGs, troponins, CTA of the chest abdomen pelvis, and basic labs did not reveal any causative findings. Please follow-up with your carpet layer in the next 3-5 days for further evaluation. If you develop any new or worsening symptoms please return to the ED for re-evaluation. Patient Language: [place] Prescriptions: No Action clonazepam 0.5 mg tablet 0.5 mg PO .QHS carbidopa-levodopa [Sinemet] 25-100 mg tablet 5 tablet PO DIRECTED Rx Instructions: 5 AT 5AM, 4 AT 9 AM, 4 AT 1 PM, 4 AT 5 PM, 5 AT 9 PM mirtazapine 45 mg tablet 45 mg PO HS escitalopram oxalate 10 mg tablet 10 mg PO DAILY trazodone 100 mg tablet 100 mg PO DAILY Airsupra 90-80 mcg/actuation HFA aerosol inhaler 2 inh inhalation 6XD PRN (Reason: shortness of breath) Qty: 10.7 2RF Rx Instructions: as a single dose; may repeat up to 6 doses per day (12 inhalations) Rinse mouth and spit after each use (DME) Animated Dynamicsuch Ultra Blue Test Strip Strip See Rx Instructions .ROUTE .MEDSUPPLY Qty: 200 3RF Rx Instructions: Needs to check glucose bid for diabetes (DME) lancets [BD Ultra Fine Lancets] 33 gauge misc See Rx Instructions .ROUTE .MEDSUPPLY Qty: 100 3RF Rx Instructions: check glucose bid for diabetes (DME) blood-glucose meter [OneTouch Verio Flex Start] Kit See Rx Instructions .ROUTE .MEDSUPPLY Qty: 1 0RF Rx Instructions: As directed amlodipine 5 mg tablet See Rx Instructions .ROUTE .COMPLEX Qty: 180 1RF Dose Instruction: TAKE 2 TABLETS (10 MG) DAILY Rx Instructions: TAKE 2 TABLETS (10 MG) DAILY rosuvastatin 20 mg tablet See Rx Instructions .ROUTE .COMPLEX Qty: 90 3RF Dose Instruction: TAKE 1 TABLET DAILY Rx Instructions: TAKE 1 TABLET DAILY triamcinolone acetonide 0.1 % cream 1 applic topical BID Qty: 30 0RF lansoprazole 30 mg capsule,delayed release(DR/EC) See Rx Instructions .ROUTE .COMPLEX Qty: 90 3RF Dose Instruction: TAKE 1 CAPSULE DAILY Rx Instructions: TAKE 1 CAPSULE DAILY metformin 500 mg tablet extended release 24 hr See Rx Instructions .ROUTE .COMPLEX Qty: 360 3RF Dose Instruction: TAKE 4 TABLETS (2000 MG) EVERY EVENING Rx Instructions: TAKE 4 TABLETS (2000 MG) EVERY EVENING Linzess 72 mcg capsule 72 mcg PO DAILY Qty: 90 0RF Ozempic 1 mg/dose (4 mg/3 mL) pen injector 1 mg subcut WEEKLY Qty: 3 0RF Rx Instructions: managed by endo diclofenac sodium 75 mg tablet,delayed release (DR/EC) See Rx Instructions .ROUTE .COMPLEX Qty: 180 1RF Dose Instruction: TAKE 1 TABLET BY MOUTH TWICE DAILY NEEDED FOR PAIN Rx Instructions: TAKE 1 TABLET BY MOUTH TWICE DAILY NEEDED FOR PAIN ramipril 10 mg capsule See Rx Instructions .ROUTE .COMPLEX Qty: 180 1RF Dose Instruction: TAKE 2 CAPSULES BY MOUTH EVERY DAY Rx Instructions: TAKE 2 CAPSULES BY MOUTH EVERY DAY doxycycline hyclate 100 mg tablet 100 mg PO BID Qty: 14 0RF prednisone 10 mg tablet See Rx Instructions PO DAILY Qty: 34 0RF Rx Instructions: 4 tabs daily x 4 days; then 3 tabs daily x 3 days, then 2 tabs daily x 3 days, then 1 tab daily x 3 days. codeine-guaifenesin 10-100 mg/5 mL liquid 5 ml PO Q4-6H PRN (Reason: cough) Qty: 200 0RF budesonide-formoterol [Symbicort] 160-4.5 mcg/actuation HFA aerosol inhaler 2 puff inhalation Q12H Qty: 10.2 5RF Rx Instructions: rinse and spit albuterol sulfate 2.5 mg /3 mL (0.083 %) solution for nebulization 2.5 mg inhalation Q4-6H PRN (Reason: shortness of breath or wheezing) Qty: 180 3RF montelukast 10 mg tablet See Rx Instructions .ROUTE .COMPLEX Qty: 90 2RF Dose Instruction: TAKE 1 TABLET BY MOUTH EVERY DAY Rx Instructions: TAKE 1 TABLET BY MOUTH EVERY DAY Follow-up/Referrals: Babatunde Rees MD [Primary Care Provider] - 1 Week (Chest pain )
--- NOTE | 2024-10-25 08:28 | ECG_ITS ---
Test Date: 2024-10-25 08:46:39 Measurements Intervals [place] Rate: 75 P: 34 HI: 202 QRS: 8 QRSD: 108 T: 14 QT: 388 QTc: 435 Interpretive Statements SINUS RHYTHM WITH MARKED SINUS ARRHYTHMIA INCOMPLETE RIGHT BUNDLE BRANCH BLOCK BORDERLINE ECG Compared to ECG 10/25/2024 06:23:26 First degree AV block no longer present NO SIGNIFICANT CHANGE Electronically Signed On 10-25-2024 13:47:01 CDT by Juaniot Kolb D.O.
[2024-10-25 09:05] LABS: Troponin I < 0.012 ng/mL (0.000-0.034)
== END 2024-10-25 10:12 | disposition home or self-care (01) ==
PROVIDERS: Student in an Organized Health Care Education/Training Program; Emergency Provider Emergency Medicine; PCP Family Medicine
DX: R07.89 Other chest pain (principal); I10 Essential (primary) hypertension; E11.9 Type 2 diabetes mellitus without complications; E78.2 Mixed hyperlipidemia; J45.909 Unspecified asthma, uncomplicated; G20.A1 Parkinson's disease without dyskinesia, without mention of fluctuations; G47.33 Obstructive sleep apnea (adult) (pediatric); M17.11 Unilateral primary osteoarthritis, right knee; F32.A Depression, unspecified; F41.9 Anxiety disorder, unspecified; Z96.652 Presence of left artificial knee joint; Z86.711 Personal history of pulmonary embolism; Z87.891 Personal history of nicotine dependence; Z79.899 Other long term (current) drug therapy; Z79.85 Long-term (current) use of injectable non-insulin antidiabetic drugs; I45.10 Unspecified right bundle-branch block; R94.31 Abnormal electrocardiogram [ECG] [EKG]; I44.0 Atrioventricular block, first degree
CPT/HCPCS: 36415; 71045; 71275; 74174; 80053; 83690; 84484; 85025; 85610; 85730; 93005; 99284; Q9967

== ENCOUNTER 2025-01-21 14:37 | Outpatient (CLI) | payer MEDICARE, BC, SELFPAY ==
--- NOTE | ~2025-01-21 | XR_ITS ---
EXAMINATION: XR chest 2V, 01/21/2025 14:45 CDT HISTORY: rule out pneumonia COMPARISON: No comparisons available. Technique: 2 views obtained. Findings: The lungs are clear, no effusion. No pneumothorax. Heart is normal size. Mediastinal and hilar contours are within normal limits. Bony thorax no acute abnormality. Impression: No acute cardiopulmonary abnormality. Reviewed, dictated and finalized at location P. Impression: No acute cardiopulmonary abnormality.
--- OUTSIDE RECORDS SUMMARY | 2025-01-21 17:14 | XMS_ITS | Clinical Summary ---
Author Organization [facility] Address [address] [place] [id number] Care Team Providers Care Glass Production Machine Operator Name Role Phone Babatunde Rees MD Primary Care Provider [phone] Social History Tobacco Use Types Packs/Day Years [...] Td Vaccines ( 1 - Tdap) 1979 Pneumococcal Vaccine: 50+ Ye ars (1 of 1 - PCV) 2010 Zoster Vaccines (1 of 2) 2010 COVID-19 Vaccine ( - 2023-2 5 season) 2024 RSV Immunization or 60+ Years (1 - [...] age to complete this topic Insurance MEDICARE [facility] Care Teams Glass Production Machine Operator Relationship Specialty Start Date End Date Babatunde Rees MD [address] [place], [place] [id number] PCP - General FAMILY PRACTICE 11/01/22
--- OUTSIDE RECORDS SUMMARY | 2025-01-21 17:14 | XMS_ITS | Clinical Summary ---
Author Organization [facility] [place] Address [address] [place] [address] Care Team Providers Care Sales And Customer Relations Rep Name Role Phone Babatunde Rees MD Primary Care Provider [phone] Source Comments [facility],non-owned Affiliates and Associated Physician Practices is amultiple site organization consisting of ambulatory clinics and hospital sitesin [place], [place] and [place]. This disclosure is being madepursuant to the Care Everywhere program and may not contain all information available regarding this patient. Last updated 18.[facility] Allergies No known active allergies Medications * [...] care, and heating? Not very hard 06/18/2022 [facility] of Occupat ional Health - Occupational Stress [...] No 06/18/2022 Housing Stability Vital Sign Answer Harsi e Recorded In the last 12 months, [...] place to sleep or slept in a nursing home (including now)? No 06/18/2022 Sex and Gender Information Value Date Recorded Sex Assigned at Not on file Legal Sex Male 5:24 AM HYDRAULIC MINER Gender Identity Not on file Sexual Orientation Not on file Last Filed Vital Signs Vital Sign Reading Time Taken Comments Blood Pressure 128/64 07/04/2022 1:18 PM HYDRAULIC MINER Pulse 78 07/04/2022 1:18 PM HYDRAULIC MINER Temperature 36.7 C (98.1 F) 07/04/2022 1:18 PM HYDRAULIC MINER Respiratory Rate 16 07/04/2022 1:18 PM HYDRAULIC MINER Oxygen Saturation 97% 07/04/2022 1:18 PM HYDRAULIC MINER Inhaled Oxygen Concentration - - Weight 113.4 kg (250 lb) 06/21/2022 1:00 PM HYDRAULIC MINER stated Height 180.3 cm (5' 11) 06/21/2022 1:00 PM HYDRAULIC MINER Body Mass Index 34.87 06/21/2022 1:00 PM HYDRAULIC MINER Plan of Treatment Health Maintenance Due Date Last Done Comments COLOGUARD (AGES 45-75) - COLON CA SCREENING 1960 CT COLONOGRAPHY - COLON CA SCREENING 1960 FIT - COLON CA SCREENING 1960 FLEX SIG - COLON CA SCREENING 1960 MEDICARE AWV 12 MONTHS 1960 HIV SCREENING 1975 HEPATITIS C SCREENING 05/05/1978 DTAP/TDAP/TD VACCINES (1 - Tdap) 1979 PNEUMOCOCCAL VACCINE 50+ (1 of 1 - PCV) 2010 ZOSTER VACCINE (1 of 2) 2010 Respiratory Syncytial Virus (RSV) Vaccine Pt: or over 60 yrs (1 - Risk 60-74 years 1-dose series) 2020 DEPRESSION SCREENING 04/29/2024 COVID-19 VACCINE ( - 2024- season) 2024 08/01/2021, 01/20/2021, 07/19/2020, Additional history exists INFLUENZA VACCINE (#1) 2024 , 01/27/2018, 01/21/2013 SCREENING FOR DIABETES 06/19/2025 3, 06/19/2022, 06/18/2022, Additional history exists COLON MONITORING 03/07/2032 03/07/2022, 01/04/2022 COLONOSCOPY - COLON CA SCREENING 03/07/2032 03/07/2022, 01/04/2022 Colorectal Cancer Screening 03/07/2032 HEPATITIS B VACCINE Aged Out No longe [...] this topic Medical Devices Implanted Type Area Refrigeration Houseman Device Identifier Shelf Expiration Date Model / Serial / Lot Cmnt Bone Djo Srg Cblt 40gm Hvisc Strl Implanted:Qty: 2 on 06/18/2022 by Ishmael Hutchins MD at [facility] Right: Knee [employer] 12/21/2023 600-15-000 / / [id number] Cmpnt Ptlr Std 28mm 3 Pg Kn Ser A Implanted:Qty: 1 on 06/18/2022 by Ishmael Hutchins MD at [facility] Right: Knee [employer] 03/06/2027 [id number] / / [id number] Tray Tib 75mm Kn Cocr I Beam Implanted:Qty: 1 on 06/18/2022 by Ishmael Hutchins MD at [facility] Right: Knee [employer] 01/25/2032 [id number] / / [id number] Cmpnt Fem Kn Rt Cr Cmnt Prm Vngrd Intlk 70 Mm Implanted:Qty: 1 on 06/18/2022 by Ishmael Hutchins MD at [facility] Right: Knee [employer] 05/01/2032 [id number] / / [id number] Vanguard Knee Tibial Bearing 75 Mm X 14 Mm Implanted:Qty: 1 on 06/18/2022 by Ishmael Hutchins MD at [facility] Right: Knee [employer] 09/27/2026 [id number] / / [id number] Procedures Procedure Name Priority Date/Time Associated Diagnosis Comments GLUCOSE - POINT OF CARE Routine 06/19/2022 11:22 AM HYDRAULIC MINER from Last 3 Months or Most Recently Relevant to Health Maintenance Results * (ABNORMAL) GLUCOSE - POINT OF CARE (06/19/2022 11:22 AM HYDRAULIC MINER) Glucose WB/POC 199(H) 70 - 106 mg/dL 06/19/2022 4:19 PM HYDRAULIC MINER [facility] Specimen Type Cap Fingerstick 2022 4:19 PM HYDRAULIC MINER [facility] Blood BLOOD SPECIMEN / Unknown 06/19/2022 11:22 AM HYDRAULIC MINER 06/19/2022 4:19 PM HYDRAULIC MINER Ishmael Hutchins MD LAB - POINT OF CARE ORDERABLE S Final Result [facility] [id number] [place] [address] from Last 3 Months or Most Recently Relevant to Health Maintenance Insurance MEDICARE [facility] MEDICARE [facility] Advance Directives Documents on File Type Date Recorded 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
--- OUTSIDE RECORDS SUMMARY | 2025-01-21 17:14 | XMS_ITS | Clinical Summary ---
[facility] Organization [facility] [place] Address [address] [place] [address] Phone Care Team Providers Care Shuttlecock Feather Trimmer Name Role Phone Babatunde Rees MD Primary Care Provider [phone] Encounters Date Type Department Care Team Description 12/30/2024 External Device Data [facility] ABSTRACTION Provider, Abstract from Last 3 Months Social History Tobacco Use Types Packs/Day Years [...] 6 MONTHS 11/15/2022 05/18/2022 INFLUENZA VACCINE (#1) 2024 02/09/2020 RSV VACCINE (60+ or ) (1 - 1-dose 75+ series) 2035 Insurance MEDICARE PART A AND B [facility] Care Teams Shuttlecock Feather Trimmer Relationship Specialty Start Date End Date Babatunde Rees MD [address] [place] [address] PCP - General Family Practice 06/28/21
--- OUTSIDE RECORDS SUMMARY | 2025-01-21 17:14 | XMS_ITS | Encounter Summary ---
Author Organization [facility] Address [address] [place] [address] Care Team Providers Care Textile Designer Name Role Phone Babatunde Rees MD Primary Care Provider [phone] Encounter Details Date Type Department Care Team (Latest Contact Info) Description 11/27/2024 Results Follow-Up [facility] Diabetes Endocrine [facility] at [address] [place] [id number] Deloris Chairez, DRY HOUSE ATTENDANT [address] [facility] [address] [place] [address] Albumin Creatinine Ratio, Urine, Comprehensive metabolic panel, Lipid panel, eGFR Social History Tobacco Use Types Packs/Day Years [...] on file Legal Sex Male 12:49 AM CLINICAL PHARMACY SPECIALIST Gender Identity Male 01/07/2021 10:34 AM CDT Sexual Orientation Straight 06/15/2020 11 :14 AM CLINICAL PHARMACY SPECIALIST documented as of this encounter Plan of Treatment Not on file documented as of this encounter Visit Diagnoses Not on filedocumented in this encounter Care Teams Textile Designer Relationship Specialty Start Date End Date Babatunde Rees MD PCP - General 08/27/16 documented as of this encounter
--- OUTSIDE RECORDS SUMMARY | 2025-01-21 17:14 | XMS_ITS | Clinical Summary ---
Author Organization [facility] [address] Address [address] [place] [address] Care Team Providers Care Supervisor Production Department Name Role Phone Babatunde Rees MD Primary Care Provider + [phone] Allergies No known active allergies Medications ONETOUCH ULTRA BLUE TEST STRIP strip 09/05/19 18 Active ONETOUCH ULTRA2 kit 09/05/19 18 Active lansoprazole (PREVACID) 30 mg capsule TK 1 C PO at night for heartburn 0 02/05/20 18 Active ramipril (ALTACE) 10 mg capsule Take 1 capsule (10 mg total) by mouth 2 (two) times a day 180 capsule 1 12/23/19 19 Active metFORMIN XR (GLUCOPHAGE XR) 500 mg 24 hr tablet Take 4 tablets (2,000 mg total) by mouth nightly 07/22/19 20 Active montelukast (SINGULAIR) 10 mg tablet daily 09/13/[address] (VOLTAREN) 75 mg EC tablet Take 1 tablet (75 mg total) by mouth 2 (two) times a day 02/15/20 23 Active semaglutide (OZEMPIC) 1 mg/dose (4 mg/3 mL) pen injector injectionIndicat ions:type 2 diabetes mellitus Inject 1 mg under the skin every 7 days E11.65 9 mL 4 12/11/19 24 Active furosemide (LASIX) 20 mg tablet Take 1 tablet daily as needed 30 tablet 01/30/20 24 Active insulin degludec (TRESIBA) 100 unit/mL (3 mL) pen for injectionIndicat ions:type 2 diabetes mellitus Inject 36 Units under the skin daily E11.65 30 mL 4 05/01/19 25 Active clonazePAM (KlonoPIN) 0.5 mg tabletIndication s:for anxiety Take 1 tab by mouth nightly and can take an additional 1/2 tab during the day prn 135 tablet 1 06/25/19 25 Active mirtazapine (REMERON) 45 mg tablet TAKE 1 TABLE BY MOUTH NIGHTLY 90 tablet 3 07/08/19 25 Active entacapone (COMTAN) 200 mg tabletIndication s:Idiopathic Parkinsonism Take 1 tablet (200 mg total) by mouth 4 (four) times a day 5am,9 am 1pm 5pm 360 tablet 3 07/09/19 25 026 Active rosuvastatin (CRESTOR) 40 mg tablet Take 1 tablet (40 mg total) by mouth daily E11.65 90 tablet 3 08/05/19 25 Active escitalopram (LEXAPRO) 20 mg tabletIndication s:Parkinson's disease (HCC) Take 1 tablet (20 mg total) by mouth daily 90 tablet 3 09/02/19 25 026 Active amLODIPine (NORVASC) 10 mg tabletIndication s:hypertension Take 1 tablet (10 mg total) by mouth daily 90 tablet 3 09/19/19 25 Active dilTIAZem CD/XR/XT (Cartia XT) 120 mg 24 hr capsule Take 1 capsule (120 mg total) by mouth daily 30 capsule 11/11/19 25 026 Active Dexcom G7 Sensor device 1 Device continuously . Change every 10 days. E11.65 10 each 3 11/17/19 25 Active carbidopa-levodo pa (SINEMET) 25-100 mg per tabletIndication s:Parkinson's disease (HCC) Take 4 tabs at 5am, 3 at 9am, 3 at 1pm, 3 at 5pm, 4 at 9pm. 1530 tablet 3 11/28/19 25 Active traZODone (DESYREL) 100 mg tabletIndication s:Parkinson's disease (HCC) TAKE 1 TABLET AT BEDTIME AND MAY TAKE 1 TABLET IN THE MIDDLE OF THE NIGHT IF INSOMNIA PERSISTS 180 tablet 3 01/16/20 25 Active traZODone (DESYREL) 100 mg tabletIndication s:Parkinson's disease (HCC) TAKE 1 TABLET AT BEDTIME AND MAY TAKE 1 TABLET IN THE MIDDLE OF THE NIGHT IF INSOMNIA PERSISTS 180 tablet 3 08/28/19 24 025 Discontin ued(Reord er) Active Problems Problem Noted Date Diagnosed Date freestyle gurwinder continuous glucose monitoring de vice 07/15/2024 Assessment & Plan (11/16/2024 2:09 PM CDT): Continuous glucose monitor (cgm) applied from 10/31/2024 to 11/13/2024 This device was placed for monitor and treatment of blood sugar. Interpretation of data- average glucose 142. In target range 85%. 14% hyperglycemia. 1% hypoglycemia- patient reports hypoglycemia is inaccurate as he has correlated with fingerstick blood sugar.. Assessment & Plan (07/15/2024 4:08 PM CDT): [...] 03/29 Assessment & Plan (04/14/2024 12:36 PM WIRE BRUSHER): Reports pain to the left foot and ankle. Ambulatory referral to Dr. piña Type 2 diabetes mellitus wit h hyperglycemia, with long-term current use of insulin 04/13/2024 Assessment & Plan (04/13/2024 5:27 PM WIRE BRUSHER): This is a chronic condition which is [...] eye exam was [facility] in [place] Monofilament foot exam completed. Protective senses -intact Requesting referral to Podiatry. Ambulatory referral to Dr. Piña sent eGFR- greater than 90 Kidney function- [...] 07/31/2023 Assessment & Plan (04/13/2024 5:28 PM WIRE BRUSHER): This is a chronic condition which is [...] medications as prescribed. Encounter for colonoscopy du vince to history of adenomatous colonic polyps 01/28/2023 Presence of left artificial knee joint 2 Primary osteoarthritis of right knee 02/20/2022 Encounter for colonoscopy following colon polyp removal 11/22/2020 Overview (11/22/2020): Added automatically from request for surgery [id number] Palpitations 01/07/2020 Essential hypertension 01/07/2020 Assessment & Plan (04/13/2024 5:29 PM WIRE BRUSHER): This is a chronic condition which is [...] (05/16/2018): Added automatically from request for surgery [id number] Incisional hernia 04/10/2018 Dyskinesia due to Parkinson's disease 08/19/2017 Pain in right knee 05/15/2016 Pain in left wrist 03/28/2016 Chronic pulmonary embolism 05/24/2015 snf current use of anticoagulant therapy 0 05/24/2015 [...] eye exam was [facility] in [place] Monofilament foot exam completed. loss of protective senses. Ambulatory referral to Podiatry Dr. Paige in [place] for diabetic foot care Personally reviewed CMP eGFR- 97 Kidney function- normal Urine microalbumin/creatinine ratio - need. goal <30 not treated with ramipril, amlodipine B/P today- at goal of <140/90. continue ramipril, amlodipine Personally reviewed lipid panel. at Goal of less than 70. Continue rosuvastatin Class 2 severe obesity due t o excess calories with serious comorbidity and body mass index (BMI) of 35.0 to 35.9 in adult 06/16/2012 Assessment & Plan (04/13/2024 5:28 PM WIRE BRUSHER): This is a chronic condition which continues [...] constipation Parkinson's disease 07/11/2011 Assessment & Plan (11/04/2024 4:52 PM CDT): Mr. Hurtado is a 64 year old man with a 21 year history of PD with symptom onset in 2003 and now H&Y stage 2 tremor-predominant Parkinson disease (while ON). He has excellent response to carbidopa-levodopa. At his current regimen he has adequate benefit with only minimal peak dose dystonia which is not bothersome. In the past, he had marked dyskinesias and wearing off that are now controlled with the current dose regimen. He has mild orthostasis which is likely multifactorial including related to cardiac and anti-hypertensive medications, Parkinson disease and dopaminergic medications. We encouraged staying hydrated especially when doing outdoor sports. Regarding non-motor symptoms he struggles the most with constipation for which we recommended starting daily stool softeners along with adequate fluid intake and exercise. He has mild urinary urgency and drooling that are not too bothersome at this time. He has had RBD which is well controlled on current regimen (clonazepam), and his anxiety and depression are also well controlled on recently increased escitalopram. 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 Plan: - Same carbidopa-levodopa and entacapone dose - Same dose of trazodone, mirtazapine and and clonazepam at night - Same dose of escitalopram for anxiety (now well controlled) - Start taking a stool softener daily such as miralax or docusate - Encouraged to continue daily exercising and hydrating while doing outdoor activities to avoid orthostasis - Follow up with [facility] in April [address] Mulligan in 1 year Appointment started at 3:35PM and ended at 4:32PM Assessment & Plan (09/15/2024 3:03 PM CDT): [...] - follow up in 6 months with ROUTER MACHINE OPERATOR and in 1 year with us Visit was started at 3:25 and ended at 4:30 Luis Mulligan MD Movement Neurology Fellow [facility] in [place] Assessment & Plan (04/17/2023 12:13 PM WIRE BRUSHER): He has stage 2 tremor-predominant PD with [...] head) Assessment & Plan (03/30/2022 5:17 PM WIRE BRUSHER): He has stage 2 tremor-predominant PD with [...] daily Assessment & Plan (06/22/2020 6:13 PM WIRE BRUSHER): He has stage 2 PD of 16 [...] constipation. Assessment & Plan (03/20/2019 3:24 PM WIRE BRUSHER): He has mild stage 2 PD with [...] Encounters Date Type Department Care Team Description 12/17/2024 Telephone [facility] Cardiology [address] [facility] [address] [place] [address] Adali Gonsalez BS 11/27/2024 Results Follow-Up [facility] at [address] [place] [address] Deloris Chairez NP Albumin Creatinine Ratio, Urine, Comprehensive metabolic panel, Lipid panel, eGFR 11/27/2024 Telephone [facility] at [address] [place] [address] Deloris Chairez NP 11/25/2024 10:10 AM CDT Lab [facility] - Outpatient Center at [address] [address] Type 2 diabetes 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, with long-term current use of insulin (HCC) 11/16/2024 1:00 PM CDT Office Visit [facility] at [address] [place] [address] Deloris Chairez, JESSICA Type 2 diabetes 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, with long-term current use of insulin (HCC) (Primary Dx); Type 2 diabetes mellitus with diabetic polyneuropathy, without long-term current use of insulin (HCC); Hyperlipidemia associated with type 2 diabetes mellitus (HCC); Essential hypertension; freestyle gurwinder continuous glucose monitoring device; Class 2 severe obesity due to excess calories with serious comorbidity and body mass index (BMI) of 35.0 to 35.9 in adult (HCC) 11/04/2024 3:15 PM CDT Telemedicine [facility] Movement Disorders [facility] [facility] 7th [place] [address] Osiel Ramos MD Parkinson's disease with dyskinesia and fluctuating manifestations (HCC) (Primary Dx); Generalized anxiety disorder; Constipation, unspecified constipation type 10/27/2024 Orders Only [facility] [address] [facility] Office [address] [place] [address] Aparna Gunter MD 10/26/2024 Telephone [facility] [address] [facility] 8th [place] [address] [place] [address] Aparna Gunter MD 10/26/2024 Telephone [facility] Cardiology [address] [facility] 8th [place] [address] [place] [address] Aparna Gunter MD 10/21/2024 Results Follow-Up [facility] Cardiology [address] [facility] Office [address] [place] [address] Aparna Gunter MD Extended/Skilled Nursing Holter Patch (>48 hours up to 7 days) from Last 3 Months Immunizations Immunization Administration [...] Dysphagia Hypertension Asthma Type 2 diabetes mellitus Parkinson disease (HCC) Anxiety Diverticulosis Hyperlipidemia Anxiety [...] on file Legal Sex Male 12:49 AM WIRE BRUSHER Gender Identity Male 01/07/2021 10:34 AM CDT Sexual Orientation Straight 06/15/2020 11 :14 AM WIRE BRUSHER Obstetrics History Last Filed Vital Signs Vital Sign Reading Time Taken Comments Blood Pressure 114/64 11/16/2024 12:55 PM CDT Pulse 72 09/01/2024 8:58 AM CDT Temperature 36.2 C (97.2 F) 03/07/2023 7:32 AM WIRE BRUSHER Respiratory Rate 17 03/07/2023 8:39 AM WIRE BRUSHER Oxygen Saturation 97% 01/14/2024 12: 11 PM CDT Inhaled Oxygen Concentration - - Weight 114.9 kg (253 lb 4.8 oz) 025 12:55 PM CDT Height 180.3 cm (5' 11) 11/16/2024 12: 55 PM CDT Body Mass Index 35.33 11/16/2024 12:55 PM CDT Plan of Treatment Health Maintenance Due Date Last Done Comments Hepatitis C Screening 1960 Prostate Cancer Screening-PSA 1960 DTaP/Tdap/Td Vaccine (1 - Tdap) 1971 Hepatitis B Screening 1978 Regular Well Visit/Exam 18-64 1978 Pneumococcal vaccine <65 (1 of 2 - PCV) 1979 Zoster Vaccine (1 of 2) 2010 Covid-19 Vaccine (5 - 2024-2 6 season) 2024 08/01/2021, 01/20/2021, 07/19/2020, Additional history exists Foot Exam 04/13/2025 04/13/2024, 10/28, 07/31/2023 Hemoglobin A1C 05/19/2025 11/16/2024, 06/27, 04/13/2024, Additional history exists Depression Screening 09/01/2025 09/01/2024 Albumin Creatinine Ratio, Urine 11/25/2025 , 11/06/2023 Lipid Panel 11/25/2025 11/25/2024, 10/27, 08/28/2018 eGFR 11/25/2025 11/25/2024, 10/27, 03/31/2021 Dilated Eye Exam 05/14/2026 05/14/2024 Colon Cancer Screening-Colonoscopy 03/07/2033 03/07/2023, 03/07/2022, 01/04/2022, Additional history exists Colon Cancer Screening-CT Colonography Discontinued 03/07/2023, 03/07/2022, 01/04/2022, Additional history exists Colon Cancer Screening-DNA Stool Discontinued 03/07/2023, 03/07/2022, 01/04/2022, Additional history exists Colon Cancer Screening-FIT Discontinued 03/07, 03/07/2022, 01/04/2022, Additional history exists Colon Cancer Screening-Sigmoidoscopy Discontinued 03/07/2023, 03/07/2022, 01/04/2022, Additional history exists Influenza Vaccine Completed 01/03/2025, , 02/09/2020, Additional history exists Medical Devices Implanted Type Area System Safety Engineer Device Identifier Shelf Expiration Date Model / Serial / Lot [employer]/Percy Han BIG Launcher [id number] Bard [id number] Monofilament Soft Lightweight Low Profile Square - Sn/A - [id number] Implanted:Qty: 1 on 08/28/2018 by George Washington MD at [facility] [employer]/C R Bard [id number] 05/26/2023 [id number] / N/A / [id number] Procedures Procedure Name Priority Date/Time Associated Diagnosis Comments EGFR Routine 11/25/2024 10:05 AM CDT Type 2 diabetes 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, with long-term current use of insulin (HCC) LIPID PANEL Routine 11/25/2024 10:05 AM CDT Type 2 diabetes 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, with long-term current use of insulin ([facility]) COMPREHENSIVE METABOLIC PANEL Routine 11/25/2024 10:05 AM CDT Type 2 diabetes 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, with long-term current use of insulin ([facility]) ALBUMIN CREATININE RATIO, URINE Routine 11/25/2024 10:05 AM CDT Type 2 diabetes 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, with long-term current use of insulin ([facility]) POCT HEMOGLOBIN A1C Routine 11/16/2024 1 2:58 PM CDT Type 2 diabetes 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, with long-term current use of insulin ([facility]) POCT GLUCOSE Routine 11/16/2024 12:56 PM CDT Type 2 diabetes 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, with long-term current use of insulin ([facility]) DIABETIC EYE EXAM Routine 05/14/2024 COLONOSCOPY 03/07/2023 7:46 AM WIRE BRUSHER from Last 3 Months or Most Recently Relevant to Health Maintenance Results * eGFR (11/25/2024 10:05 AM CDT) eGFR >90 >=60 mL/min/1. 73 [...] Current interpretive data was last reviewed 2021. Testing performed by: [address] [address] Blood 11/25/2024 10:0 5 AM CDT 11/25/2024 6:27 PM CDT Deloris Chairez ROUTER MACHINE OPERATOR LAB BLOOD ORDERABLES Final Resu lt [address] [place] [address] * Albumin Creatinine Ratio, Urine (11/25/2024 10:05 AM CDT) Albumin Ur 17.6 mg/L Comment: Interpretive Data No reference range established. Current interpretive data was last revised 2018. Testing performed by: [address] [address] Creatinine Ur 143.2 mg/dL KATHIE Comment: Interpretive Data No reference range established. Current interpretive data was last revised 2018. Testing performed by: [address] [address] Albumin Creatinine Ratio, Ur 12 1 - 29 mg/g KATHIE Comment:Testing performed by : [address] [address] Urine 11/25/2024 10:0 5 AM CDT 11/25/2024 6:16 PM CDT us Deloris Chairez NP LAB URINE ORDERABLES Final Resu lt [address] [place] [address] * (ABNORMAL) Lipid panel (11/25/2024 10:05 AM CDT) Cholesterol 84 30 - 199 mg/dL Comment: Interpretive Data [...] Interpretive Data was last revised on 2017. Testing performed by: [address] [address] Triglycerides 166(H) <=149 mg/dL KATHIE Comment: Interpretive Data Ages [...] Interpretive Data was last revised on 2017. Testing performed by: [address] [address] HDL 32(L) >=40 mg/dL KATHIE Comment: Interpretive Data Ages [...] Interpretive Data was last revised on 2017. Testing performed by: [facility], [address] [place] [address]., [address] LDL, calculated 24 <=129 mg/dL KATHIE SOLORZANO Comment: Interpretive Data Ages < or = 19 years Acceptable: <110 mg/dL Borderline high: 110-129 mg/dL High: >or= 130 mg/dL Ages > or = 20 years Optimal: <100 mg/dL Near optimal: 100-129 mg/dL Borderline high: 130-159 mg/dL High: >160 mg/dL Calculated using the Raman LDL-C estimating equation. This equation was implemented on 2023. Prior to this date LDL-C was estimated using the Friedewald equation. Literature References: 1. Expert Panel on Integrated Guidelines for Cardiovascular Health and Risk Reduction in Children and Adolescents. Pediatrics 2011;128:S213 2. NCEP Expert Panel. Circulation 2004;110:227 3. Raman Aaron et al. MEGHNA Cardiol. 2020 August 27;5(5):540-548. doi: 10.1001/jamacardio.2020.0013 Current Interpretive Data was last revised on 2023. Testing performed by: [address] [address] Non-HDL Cholesterol 52 mg/dL KATHIE SOLORZANO Comment: Interpretive Data Ages [...] Interpretive Data was last revised on 2017. Testing performed by: [facility], [address] [place] [address]., [address] Chol/HDL ratio 3 CERNER Comment:Testing performed by : [address] [address] Blood 11/25/2024 10:0 5 AM CDT 11/25/2024 6:16 PM CDT Narrative KATHIE CH - 11/25/2024 7:18 PM CDT These lab test should be done fasting. This means do not eat or drink for at least 12 hours prior to getting your blood drawn. Has the patient been fasting for 8 hours or more?->Yes us Deloris Chairez NP LAB BLOOD ORDERABLES Final Resu lt [place] [address] [address] Department [place] [address] * Comprehensive metabolic panel (11/25/2024 10:05 AM CDT) Sodium 137 135 - 145 mmol/L Comment:Testing performed by : [address] [address] Potassium, pl 4.5 3.3 - 4.9 mmol/L CERNER Comment:Testing performed by : [address], [address] Chloride 100 97 - 110 mmol/L CERNER Comment:Testing performed by : [address] [address] CO2 23 22 - 32 mmol/L CERNER CH Comment:Testing performed by : [address] [address] Anion gap 14 2 - 15 mmol/L CERNER Comment:Testing performed by : [address] [address] BUN 24 6 - 25 mg/dL CERNER Comment:Testing performed by : [address], [address] Creatinine 0.80 0.80 - 1.30 mg/dL CERNER CH Comment:Testing performed by : [address], [address] Glucose 172 70 - 199 mg/dL CERNER Comment: Interpretive Data Fasting glucose >/= 126 mg/dl is diagnostic for diabetes. Fasting is defined as no caloric intake for at least 8 hours. Fasting glucose between 100 mg/dl to 125 mg/dl is diagnostic of prediabetes. In a patient with classic symptoms of hyperglycemia or hyperglycemic crisis, a random glucose >/= 200 mg/dl is diagnostic for diabetes. In the absence of unequivocal hyperglycemia, results should be confirmed by repeat testing. The classification and Diagnosis of Diabetes Diabetes Care 2021; 46: S19-S40. Current interpretive data was last revised 2022. Testing performed by: [facility], [address] [place] [address]., [address] Calcium 9.1 8.5 - 10.3 mg/dL CERNER Comment:Testing performed by : [address], [address] Bilirubin, total 0.3 0.1 - 1.2 mg/dL CERNER CH Comment:Testing performed by : [address], [address] Protein, pl 7.1 6.5 - 8.5 g/dL CERNER CH Comment:Testing performed by : [address] [address] Albumin 4.3 3.5 - 5.0 g/dL CERNER CH Comment:Testing performed by : [address] [address] Alk phos 102 40 - 130 Units/L CERNER CH Comment:Testing performed by : [address] [address] ALT 15 7 - 55 Units/L CERNER CH Comment:Testing performed by : [address] [address] AST 25 10 - 50 Units/L CERNER CH Comment:Testing performed by : [address] [address] Blood 11/25/2024 10:0 5 AM CDT 11/25/2024 6:16 PM CDT us Deloris Chairez NP LAB BLOOD ORDERABLES Final Resu lt [place] [address] [place] [address] * (ABNORMAL) POCT hemoglobin A1c (11/16/2024 12:58 PM CDT) Hemoglobin A1C, POC 7.2(A) 4.0 - 5.6 % Blood 11/16/2024 12:5 8 PM CDT Deloris Chairez ROUTER MACHINE OPERATOR POINT OF CARE TEST ORDERABLES F inal Result * POCT glucose (11/16/2024 12:56 PM CDT) Glucose Blood, POC 282 Normal Fasting 70 - 100, Random <200 mg/dL Blood 11/16/2024 12:5 6 PM CDT Deloris Chairez NP POINT OF CARE TEST ORDERABLES F inal Result * Diabetic Eye Exam (05/14/2024) 05/14/2024 Historical Provider HEALTH MAINTENANCE Final Result * COLONOSCOPY (03/07/2023 7:46 AM WIRE BRUSHER) Anatomical Region Laterality Modality Other Narrative Procedure [...] my nurses in the GI office at [phone] ([phone]) for your final pathology results in7 days. [...] Relevant to Health Maintenance Insurance MEDICARE [facility]LY [facility] [employer] [id number] [place] [address] TRADITIONAL MEDICARE [facility]LY [facility] Member Subscriber Plan / Payer (Ef fective 2016-Present) Name:Pal Hurtado Relation to Subscriber:Self Name:Pal Hurtado Payer ID:[id number] (NAIC) Type:[employer] Address: [address] [place] [id number] MEDICARE [facility] Address: [address] [address] [place] [address] Advance Directives For more information, please contact: [phone] * Full Code (Latest Code Status on File) Date Activated Date Inactivated Comments 03/07/2023 7:26 AM 03/07/2023 1:13 PM * Full Code Date Activated Date Inactivated Comments 03/07/2022 6:48 AM 03/07/2022 1:17 PM * Full Code Date Activated Date Inactivated Comments 10/17/2020 8:10 AM 10/17/2020 2:59 PM * Full Code Date Activated Date Inactivated Comments 08/28/2018 9:13 PM 08/29/2018 10:17 PM Care Teams Supervisor Production Department Relationship Specialty Start Date End Date Babatunde Rees MD PCP - General 08/27/16
== END 2025-01-21 14:38 | disposition home or self-care (01) ==
PROVIDERS: PCP Family Medicine
DX: R05.9 Cough, unspecified (principal)
CPT/HCPCS: 71046